=== PATIENT | female | born 1955 | race Caucasian/White ===

== ENCOUNTER 2020-07-09 15:51 | Outpatient (REF) | payer OTHER, SELFPAY | END 2020-07-09 15:52 | disposition home or self-care (01) | LOC: HO.LNP 15:51 | PROVIDERS: Visit Provider Hospitalist | DX: Z20.828 Contact with and (suspected) exposure to other viral communicable diseases (principal) | CPT/HCPCS: 87635 ==

== ENCOUNTER 2020-07-28 08:32 | Outpatient (REF) | payer OTHER, SELFPAY | END 2020-07-28 08:33 | disposition home or self-care (01) | LOC: HO.WFDLNP 08:32 | PROVIDERS: Visit Provider Hospitalist | DX: Z20.828 Contact with and (suspected) exposure to other viral communicable diseases (principal) | CPT/HCPCS: U0003 ==

== ENCOUNTER 2020-09-20 10:00 | Outpatient (REF) | payer OTHER, SELFPAY ==
[2020-09-20 13:46] LABS: Estimated Average Glucose 117 mg/dL; Hemoglobin A1c % 5.7 %
[2020-09-20 13:51] LABS: Alanine Aminotransferase 17 U/L (0-31); Albumin Level 4.3 g/dL (3.5-5.0); Alkaline Phosphatase 74 U/L (39-117); Anion Gap 13 (12-20); Aspartate Amino Transferase 18 U/L (5-31); Bilirubin Total 0.7 mg/dL (0.0-1.0); Blood Urea Nitrogen 30 mg/dL (9-16); Calcium 9.5 mg/dL (8.4-10.2); Carbon Dioxide 27 mmol/L (22-29); Chloride 102 mmol/L (96-108); Cholesterol 184 mg/dL; Estimated Glomerular Filt Rate > 60; Glucose Fasting 102 mg/dL (60-99); HDL Cholesterol 58 mg/dL; LDL Cholesterol Calculated 108 mg/dl; Potassium 4.7 mmol/l (3.3-5.1); Sodium 137 mmol/L (135-145); Triglycerides 94 mg/dL
[2020-09-20 14:13] LABS: TSH reflex Free T4 3.54 mIU/mL (0.32-4.0)
== END 2020-09-20 10:01 | disposition home or self-care (01) ==
LOC: HO.WFDLDS 10:00
PROVIDERS: Visit Provider Family Medicine
DX: E11.9 Type 2 diabetes mellitus without complications (principal)
CPT/HCPCS: 80053; 80061; 83036; 84443

== ENCOUNTER 2020-11-22 06:26 | Day surgery (SDC) | payer OTHER, SELFPAY ==
[2020-11-16 13:27] VITALS: BMI 29.2
--- NOTE | 2020-11-19 07:23 | HO.ANESPROP2 ---
Documented by User: Sujatha Calix 11/19/20 07:23 HPI - Anesthesia Eval Consult details Narrative: 64yo F for Upper Endoscopy and Colonoscopy PMFSH Active Problems Active Problems: All Active Problems (Updated 11/16/20 @ 13:33 by Char Nails) Encounter for screening laboratory testing for COVID-19 virus (Acute) Lumbar strain (Acute) Diabetes mellitus type 2, controlled (Acute) Essential hypertension (Acute) Screening for colon cancer (Acute) Screening for breast cancer (Acute) Screening for cervical cancer (Acute) Adult general medical exam (Acute) Past Medical History Medical History Arthritis Asthma Back pain Diabetes GERD (gastroesophageal reflux disease) Hx of migraine headaches Hx of sarcoidosis TIA (transient ischemic attack) Surgical History Surgical History H/O colonoscopy History of fusion of cervical spine History of lumbar fusion History of surgery History of total replacement of both hip joints Social History Social History Are you a primary pharmacy care coordinator to a significant other at home: No Do you presently have visiting nurse or other home services: No Smoking Status: Never smoker Use of substances other than those prescribed or required for medical reasons: No Have you been hit, kicked, punched, or otherwise hurt by someone within the past year? If so, by whom?: No Advance Directives Information Provided: No Recently lost weight without trying: No Meds Allergies Allergy/AdvReac Type Severity Reaction Status Date / Time fentanyl [FENTANYL] Allergy Intermediate HIVES Verified 11/16/20 12:53 morphine [MORPHINE] Allergy Intermediate HIVES Verified 11/22/20 06:36 nickel [NICKEL] Allergy Intermediate RASH Verified 11/22/20 06:36 NSAIDS (Non-Steroidal Allergy Intermediate HIVES Verified 11/22/20 06:36 Anti-Inflamma [NSAIDS (NON-STEROIDAL ANTI-INFLAMMA] oxycodone [OXYCODONE] Allergy Intermediate HIVES Verified 11/22/20 06:36 ranitidine [Zantac] Allergy Intermediate rash Verified 11/22/20 06:36 silver Allergy Intermediate HIVES Verified 11/22/20 06:36 [From TEGADERM AG MESH] prednisone AdvReac Intermediate RAsh Verified 11/22/20 06:36 OxyContin Allergy Intermediate RAsh Uncoded 11/16/20 13:36 red dye for scans Allergy Intermediate RAsh Uncoded 11/16/20 13:36 Tegaderm Allergy Unknown RAsh Uncoded 09/01/20 10:58 Home Medications Medication Instructions Recorded Confirmed Last Taken Type budesonide-formoterol HFA 160 2 puff PO BID 07/09/20 11/16/20 Unknown History mcg-4.5 mcg/actuation aerosol inhaler cetirizine 10 mg tablet 10 mg PO DAILY PRN 07/09/20 11/16/20 Unknown History fluticasone propionate 50 1 spray INTRANASAL DAILY 07/09/20 11/16/20 Unknown History mcg/actuation nasal spray,suspension galcanezumab-gnlm 120 mg/mL 120 mg SUBCUT Q4W 07/09/20 11/16/20 Unknown History subcutaneous pen injector ipratropium bromide 17 1 inh INHALATION BID 07/09/20 11/16/20 Unknown History mcg/actuation HFA aerosol inhaler metoclopramide HCl 10 mg tablet 10 mg PO TID PRN 07/09/20 11/16/20 Unknown History omeprazole 40 mg capsule,delayed 40 mg PO DAILY 07/09/20 11/16/20 Unknown History release sumatriptan succinate 100 mg tablet 100 mg PO DAILY PRN 07/09/20 11/16/20 Unknown History blood sugar diagnostic #10 ea 09/01/20 Unknown History flu vac [id number] 36mos up(PF) ml IM 09/01/20 Unknown History lancets 28 gauge #100 ea 09/01/20 Unknown History varicella-zoster glycoE [id number] 0.5 ml IM DIRECTED 09/01/20 Unknown History adj(PF) 50 mcg/0.5 mL IM susp, kit metformin 500 mg tablet 500 mg PO QAM 09/14/20 11/16/20 Unknown History fluoxetine 20 mg PO BID 11/16/20 11/16/20 11/22/20 05:45 History Exam Exam Date and Time: November 19, 2020 0723 Height,Weight and Vital Signs: Height 5 ft Weight 68.039 kg Assessment and Plan Assessment Anesthesia Assessment: Chart Reviewed Documented by User: Raghav Yan 11/22/20 07:40 PMFSH Past Medical History Medical History Arthritis Asthma Back pain Diabetes GERD (gastroesophageal reflux disease) Hx of migraine headaches Hx of sarcoidosis TIA (transient ischemic attack) Surgical History Surgical History H/O colonoscopy History of fusion of cervical spine History of lumbar fusion History of surgery History of total replacement of both hip joints Social History Social History Are you a primary pharmacy care coordinator to a significant other at home: No Do you presently have visiting nurse or other home services: No Smoking Status: Never smoker Use of substances other than those prescribed or required for medical reasons: No Have you been hit, kicked, punched, or otherwise hurt by someone within the past year? If so, by whom?: No Advance Directives Information Provided: No Recently lost weight without trying: No Meds Allergies Allergy/AdvReac Type Severity Reaction Status Date / Time fentanyl [FENTANYL] Allergy Intermediate HIVES Verified 11/16/20 12:53 morphine [MORPHINE] Allergy Intermediate HIVES Verified 11/22/20 06:36 nickel [NICKEL] Allergy Intermediate RASH Verified 11/22/20 06:36 NSAIDS (Non-Steroidal Allergy Intermediate HIVES Verified 11/22/20 06:36 Anti-Inflamma [NSAIDS (NON-STEROIDAL ANTI-INFLAMMA] oxycodone [OXYCODONE] Allergy Intermediate HIVES Verified 11/22/20 06:36 ranitidine [Zantac] Allergy Intermediate rash Verified 11/22/20 06:36 silver Allergy Intermediate HIVES Verified 11/22/20 06:36 [From TEGADERM AG MESH] prednisone AdvReac Intermediate RAsh Verified 11/22/20 06:36 OxyContin Allergy Intermediate RAsh Uncoded 11/16/20 13:36 red dye for scans Allergy Intermediate RAsh Uncoded 11/16/20 13:36 Tegaderm Allergy Unknown RAsh Uncoded 09/01/20 10:58 Home Medications Medication Instructions Recorded Confirmed Last Taken Type budesonide-formoterol HFA 160 2 puff PO BID 07/09/20 11/16/20 Unknown History mcg-4.5 mcg/actuation aerosol inhaler cetirizine 10 mg tablet 10 mg PO DAILY PRN 07/09/20 11/16/20 Unknown History fluticasone propionate 50 1 spray INTRANASAL DAILY 07/09/20 11/16/20 Unknown History mcg/actuation nasal spray,suspension galcanezumab-gnlm 120 mg/mL 120 mg SUBCUT Q4W 07/09/20 11/16/20 Unknown History subcutaneous pen injector ipratropium bromide 17 1 inh INHALATION BID 07/09/20 11/16/20 Unknown History mcg/actuation HFA aerosol inhaler metoclopramide HCl 10 mg tablet 10 mg PO TID PRN 07/09/20 11/16/20 Unknown History omeprazole 40 mg capsule,delayed 40 mg PO DAILY 07/09/20 11/16/20 Unknown History release sumatriptan succinate 100 mg tablet 100 mg PO DAILY PRN 07/09/20 11/16/20 Unknown History blood sugar diagnostic #10 ea 09/01/20 Unknown History flu vac [id number] 36mos up(PF) ml IM 09/01/20 Unknown History lancets 28 gauge #100 ea 09/01/20 Unknown History varicella-zoster glycoE vacc-[id number] 0.5 ml IM DIRECTED 09/01/20 Unknown History adj(PF) 50 mcg/0.5 mL IM susp, kit metformin 500 mg tablet 500 mg PO QAM 09/14/20 11/16/20 Unknown History fluoxetine 20 mg PO BID 11/16/20 11/16/20 11/22/20 05:45 History Exam Airway Mallampati Class: II TM Dist: >3cm Neck ROM: Full Loose/Missing/Broken Teeth: Yes (poor dentition) Heart: [id number] Lungs: cta b/l Assessment and Plan Assessment Anesthesia Assessment: Anesthesia Plan Discussed, PAT Visit and Chart Reviewed Final Anesthetic Review NPO: Yes ASA Class: II Final Preanesthetic Review: No Changes in Pt Med Stat, Meds/Allgs Chart Reviewed, Consent Obtained/Reviewed and Anes Risks/Benef Reviewed Patient Risk: Low Procedure Risk: Low Assessment/Block/Sedation in SS: Assess/Block/Sedation-SS Anesthetic Plan Anesthetic Plan: MAC: and Agree w/ Assess. and Plan Disposition: Standard PACU
[2020-11-22 06:52] VITALS: BP 141/82; PULSE 63; RESP 16; TEMP 36.4; O2SAT 95
[2020-11-22 06:58] LABS: Glucose, Whole Blood 106 mg/dL (60-115)
[2020-11-22] MEDS: Lactated Ringers 1,000 ML 100 ML IVCONT (07:03)
[2020-11-22 08:34] VITALS: BP 97/49; PULSE 60; RESP 16; TEMP 36.4; O2SAT 95
--- NOTE | 2020-11-22 08:38 | PM.OP ---
Brief Operative Note Date of Service: 11/22/20 Pre-op diagnosis: GERD, Screening Post-op diagnosis: other (Hiatal hernia, Gastritis, Diverticulosis) Procedure: EGD with biopsy, Colonoscopy to the cecum and TI Surgeon: Zaki Duong Anesthesia: MAC Estimated blood loss (mL): 4.0 Pathology: other (A. Proximal stomach B. EG Junction at 33cm) Condition: stable Disposition: other
[2020-11-22 08:49] VITALS: BP 98/56; PULSE 58; RESP 17; TEMP 36.4; O2SAT 98
[2020-11-22 08:55] VITALS: BP 102/59; PULSE 62; RESP 18; O2SAT 98
--- NOTE | 2020-11-22 08:55 | OP_ITS ---
SURGEON: Zaki Duong MD INDICATIONS: The patient presents for evaluation of gastroesophageal reflux, colorectal cancer screening. Full consent has been obtained from her for this, including risks of bleeding and perforation. PREOPERATIVE DIAGNOSIS: POSTOPERATIVE DIAGNOSIS: PROCEDURE PERFORMED: Esophagogastroduodenoscopy with biopsies, and colonoscopy to cecum and terminal ileum. ESTIMATED BLOOD LOSS: COMPLICATIONS: ANESTHESIA: Monitored anesthesia care. ASSISTANTS: SPECIMENS: PREOPERATIVE DIAGNOSES: Gastroesophageal reflux, colorectal cancer screening. POSTOPERATIVE DIAGNOSES: Gastroesophageal reflux, colorectal cancer screening, hiatal hernia, gastritis, diverticulosis, and internal hemorrhoids. DESCRIPTION OF PROCEDURE: The patient was placed in the left lateral decubitus position. The Olympus video gastroscope was passed in the posterior oropharynx and upper esophagus under direct vision. The scope was passed slowly into the distal esophagus. The gastroesophageal junction appeared at 33 cm. There was some slight irregularity, but no evidence of any esophagitis, nor any definitive evidence of Andino's mucosa. The scope was entered into the stomach. There was a small to moderate-sized hiatal hernia. The scope was advanced to pylorus and the duodenum was cannulated to the descending portion. The duodenum including the bulb appeared normal without mass or ulceration. The scope was withdrawn back into the stomach. The gastric antrum appeared normal with good peristalsis. Scope was retroflexed visualizing the proximal stomach carefully, which appeared consistent with changes of some gastritis with some erythema and edema. There were no ulcerations nor masses. The scope was straightened. Biopsies were obtained from the proximal stomach. The scope was withdrawn back in the esophagus. Biopsies were obtained at the EG junction at 33 cm. The scope was then withdrawn through the remainder of the esophagus, which appeared normal. The scope was withdrawn from the patient. She tolerated the procedure well and was turned around for colonoscopy. The digital rectal exam revealed no abnormalities. The Olympus video pediatric colonoscope was entered into the rectum and advanced to the cecum with the assistance of abdominal wall pressure. Once in the cecum, I did identify normal-appearing cecal pouch with appendiceal orifice and a normal-appearing ileocecal valve. The terminal ileum was cannulated and appeared normal. The scope was withdrawn back in the colon. The entire cecum and ileocecal valve appeared normal. The scope was slowly withdrawn assessing all mucosal surfaces carefully. Preparation was excellent. I did not visualize any sign of polyps, colitis, nor angiodysplasia. There was a mild amount of sigmoid diverticulosis. In the rectum, scope was retroflexed visualizing internal hemorrhoids, but no other pathology. The rectal mucosa appeared normal. Scope was straightened out and withdrawn from the patient. She tolerated both procedures well and was returned to recovery area in stable condition. IMPRESSION: 1. Hiatal hernia, gastroesophageal reflux. 2. Proximal gastritis. 3. Diverticulosis. 4. Internal hemorrhoids. PLAN: The results of the biopsies will be checked. She will continue her omeprazole for symptomatic relief of her reflux. She was advised not to use any aspirin and NSAIDs for 1 week. I would recommend a repeat colonoscopy in 5 years for further screening given her family history. She will otherwise see me on a p.r.n. basis. MD MITALI Madrigal/TYLER / [phone]
== END 2020-11-22 09:22 | disposition home or self-care (01) ==
PROVIDERS: Visit Provider Internal Medicine
PROC: (CPT 43239; principal; 2020-11-22 07:30)
DX: Z12.11 Encounter for screening for malignant neoplasm of colon (principal); Z80.0 Family history of malignant neoplasm of digestive organs; K57.30 Diverticulosis of large intestine without perforation or abscess without bleeding; K64.8 Other hemorrhoids; K21.9 Gastro-esophageal reflux disease without esophagitis; K29.50 Unspecified chronic gastritis without bleeding; K44.9 Diaphragmatic hernia without obstruction or gangrene; J45.909 Unspecified asthma, uncomplicated; E11.9 Type 2 diabetes mellitus without complications; Z79.84 Long term (current) use of oral hypoglycemic drugs; Z79.51 Long term (current) use of inhaled steroids; Z86.73 Personal history of transient ischemic attack (TIA), and cerebral infarction without residual deficits; Z88.8 Allergy status to other drugs, medicaments and biological substances; Z91.041 Radiographic dye allergy status; Z79.899 Other long term (current) drug therapy
CPT/HCPCS: 43239; G0105; 82947; 88305; 88342; J2250

== ENCOUNTER 2021-02-03 09:49 | Outpatient (REF) | payer OTHER, SELFPAY ==
--- NOTE | ~2021-02-03 | XR_ITS ---
EXAMINATION: CR CHEST CLINICAL INFORMATION: Sarcoidosis of lung. COMPARISON: Several prior chest x-rays, most recent of which is dated 12/16/2019. TECHNIQUE: 2 views of the chest were obtained. FINDINGS: The cardiomediastinal silhouette is within normal limits in size. No significant) tracheal or bilateral hilar soft tissue fullness is noted. Lungs bilaterally are symmetrically hypoinflated with crowding of the bronchovascular lung markings seen. There is some superimposed linear opacity in the left lower lobe, possibly due to atelectasis. No focal dense consolidation, effusion or pneumothorax is seen. No significant pulmonary nodules are appreciated on plain film. Lower spinal fusion hardware and mid thoracic spinal stimulator leads again noted, unchanged. Mild mid and lower thoracic spine spondylosis. Bony structures are otherwise unremarkable. XR/XR chest 2V IMPRESSION: Hypoinflated lungs with suspicion of linear atelectasis in the left lung base. No dense consolidation seen.
[2021-02-03 10:23] LABS: MANUAL DIFF FLAG NO
[2021-02-03 10:31] LABS: Basophils Absolute Auto 0.1 X10*3/uL (0.0-0.2); Basophils Percent Auto 0.9 % (0-2); Eosinophils Absolute Auto 0.3 X10*3/uL (0.0-0.4); Eosinophils Percent Auto 4.9 % (0-4); Hematocrit 40.4 % (37-47); Hemoglobin 12.9 g/dl (12.0-16.0); Imm Gran Abs Auto 0.01 X10*3/uL (0.00-0.03); Imm Gran Pct Auto 0.2 % (0.0-0.4); Lymphocytes Absolute Auto 1.2 X10*3/uL (1.2-4.9); Lymphocytes Percent Auto 22.4 % (20-40); Mean Corpuscular HGB Conc 31.9 g/dl (31.0-35.0); Mean Corpuscular Hemoglobin 28.2 pg (27.0-33.0); Mean Corpuscular Volume 88.2 fL (80-98); Mean Platelet Volume 10.1 fL (9.4-12.3); Monocytes Absolute Auto 0.8 X10*3/uL (0.1-1.2); Monocytes Percent Auto 14.6 % (2-11); Neutrophils Absolute Auto 3.1 X10*3/uL (2.0-8.3); Platelet Count 254 X10*3/uL (160-400); Red Blood Count 4.58 X10*6/uL (4.20-5.50); White Blood Count 5.4 X10*3/uL (4.8-10.8)
[2021-02-03 10:58] LABS: Glucose Urine UA NEG (NEG); Leukocyte Esterase Urine NEG (NEG); Nitrite Urine NEG (NEG); Specific Gravity - Urine 1.025 (1.005-1.025); Urine Blood NEG (NEG); Urine Ketones NEG (NEG); Urine Protein NEG (NEG-TRACE)
[2021-02-03 10:59] LABS: Appearance Urine HAZY; Color Urine YELLOW
[2021-02-03 11:05] LABS: Alanine Aminotransferase 21 U/L (0-31); Albumin Level 4.1 g/dL (3.5-5.0); Alkaline Phosphatase 73 U/L (39-117); Anion Gap 12 (12-20); Aspartate Amino Transferase 18 U/L (5-31); Bilirubin Total 0.7 mg/dL (0.0-1.0); Blood Urea Nitrogen 19 mg/dL (9-16); Calcium 9.7 mg/dL (8.4-10.2); Carbon Dioxide 29 mmol/L (22-29); Chloride 103 mmol/L (96-108); Estimated Glomerular Filt Rate > 60; Glucose Random 103 mg/dL (60-115); Potassium 4.6 mmol/L (3.3-5.1); Sodium 139 mmol/L (135-145); Total Protein 7.6 g/dL (6.5-8.0)
[2021-02-03 11:25] LABS: Vitamin D 25-OH Total 44.2 ng/mL (>30)
[2021-02-08 13:12] LABS: VITAMIN D (1,25 OH) D3 27 pg/mL; Vit D (1,25-Dihydroxy) Total 48 pg/mL (18-72); Vitamin D (1,25 OH) D2 21 pg/mL
== END 2021-02-03 09:50 | disposition home or self-care (01) ==
LOC: HO.LAB 09:49
PROVIDERS: PCP Family Medicine; Visit Provider Family Medicine
DX: Z00.00 Encounter for general adult medical examination without abnormal findings (principal); D86.0 Sarcoidosis of lung; E55.9 Vitamin D deficiency, unspecified
CPT/HCPCS: 36415; 71046; 80053; 81003; 82306; 82652; 85025

== ENCOUNTER 2021-02-17 11:00 | Outpatient (RCR) | payer OTHER, SELFPAY ==
--- NOTE | 2021-02-02 15:50 | MHC.PT.EP ---
[facility] [place] [facility] [place] [facility] [place] [facility] [address] Obdulia Pak [address] [phone] F: [phone] F: [phone] F: [phone] F: [phone] Physical Therapy Plan of Care Date of Evaluation: Date of Surgery: Diagnosis: CERVICALGIA,HEADACHE Assessment: Pt IS 65 YO F REFERRED TO PT FROM DR DIAZ WITH CERVICALGIA. PRESENTS WITH DECREASED CERV ROM AND DECREASED UPPER BODY STRENGTH WITH DECREASED POSTURE. HX OF NECK SURGERY. TIGHT UTS NOTED. SHOULD BENEFIT FROM PT TO ADDRESS THESE ISSUES Frequency and Duration: The patient will be seen 2X/WK X 4 WKS Short Term Goals: 1. IMPROVED POSTURE AWARENESS AND AWARENESS NECK CARE 2. IMPROVED SLEEP Shelter Goals: 1. INCREASED CERV ROM 25% FOR ROT AND LAT FLEX 2. I HEP WITH DC EX PLAN 3. DECREASED NECK PAIN AT LEAST 50% WITH ADLS Treatment Plan: Modalities to reduce pain, spasms and effusion. Manual therapy to restore motion and function. Therapeutic exercise to improve strength and flexibility. Neuromuscular re-education for posture and balance. Therapeutic activities to return to functional activities of daily living. Electronically signed by: SRINIVAS WILLIAMSON Please sign and return to therapist. Thank you for your referral.
== END 2021-08-05 12:36 | disposition home or self-care (01) ==
LOC: HO.PTWFD 11:00
PROVIDERS: PCP Family Medicine; Visit Provider Family Medicine
DX: M54.2 Cervicalgia (principal)
CPT/HCPCS: 97110; 97140; 97161; 97535

== ENCOUNTER 2021-05-24 10:45 | Outpatient (REF) | payer OTHER, SELFPAY ==
[2021-05-24 11:44] LABS: MANUAL DIFF FLAG NO
[2021-05-24 11:46] LABS: Basophils Percent Auto 0.5 % (0-2); Eosinophils Absolute Auto 0.1 X10*3/uL (0.0-0.4); Eosinophils Percent Auto 2.5 % (0-4); Hematocrit 42.1 % (37-47); Hemoglobin 13.6 g/dl (12.0-16.0); Imm Gran Abs Auto 0.02 X10*3/uL (0.00-0.03); Imm Gran Pct Auto 0.4 % (0.0-0.4); Lymphocytes Absolute Auto 1.2 X10*3/uL (1.2-4.9); Lymphocytes Percent Auto 20.6 % (20-40); Mean Corpuscular HGB Conc 32.3 g/dl (31.0-35.0); Mean Corpuscular Hemoglobin 28.5 pg (27.0-33.0); Mean Corpuscular Volume 88.1 fL (80-98); Monocytes Absolute Auto 0.6 X10*3/uL (0.1-1.2); Monocytes Percent Auto 10.8 % (2-11); Neutrophils Absolute Auto 3.6 X10*3/uL (2.0-8.3); Neutrophils Percent Auto 65.2 % (45-73); Platelet Count 259 X10*3/uL (160-400); Red Blood Count 4.78 X10*6/uL (4.20-5.50); Red Cell Distribution Width 14.3 % (11.0-16.0); White Blood Count 5.6 X10*3/uL (4.8-10.8)
[2021-05-24 12:16] LABS: Alanine Aminotransferase 17 U/L (0-31); Albumin Level 4.3 g/dL (3.5-5.0); Alkaline Phosphatase 67 U/L (39-117); Anion Gap 12 (12-20); Aspartate Amino Transferase 19 U/L (5-31); Blood Urea Nitrogen 21 mg/dL (9-16); Calcium 9.7 mg/dL (8.4-10.2); Carbon Dioxide 26 mmol/L (22-29); Chloride 104 mmol/L (96-108); Estimated Glomerular Filt Rate > 60; Glucose Fasting 135 mg/dL (60-99); Potassium 4.1 mmol/L (3.3-5.1); Sodium 138 mmol/L (135-145)
[2021-05-24 12:33] LABS: Erythrocyte Sedimentation Rate 10 MM/HR (0-20)
[2021-05-26 12:01] LABS: CRP High Sensitivity 1.3 mg/L
[2021-05-29 22:52] LABS: Angiotensin Converting Enzyme 52 U/L (9-67)
[2021-06-01 00:21] LABS: Lysozyme, Serum 8.7 mcg/mL (5.0-11.0)
== END 2021-05-24 10:46 | disposition home or self-care (01) ==
LOC: HO.WFDLDS 10:45
PROVIDERS: Visit Provider Family Medicine
DX: Z00.00 Encounter for general adult medical examination without abnormal findings (principal); R59.0 Localized enlarged lymph nodes; D86.0 Sarcoidosis of lung
CPT/HCPCS: 36415; 80053; 82164; 85025; 85549; 85652; 86141

== ENCOUNTER 2021-08-15 14:28 | Emergency (ER) | payer OTHER, SELFPAY ==
--- NOTE | 2021-08-15 | ECG_ITS ---
Test Reason : CHEST PAIN Blood Pressure : / mmHG Vent. Rate : 065 BPM Atrial Rate : 065 BPM P-R Int : 170 ms QRS Dur : 076 ms QT Int : 398 ms P-R-T Axes : 038 -31 -19 degrees QTc Int : 413 ms Normal sinus rhythm Left axis deviation Low voltage QRS Nonspecific T wave abnormality Inferior leads Cannot rule out Anterior infarct (cited on or before 24-SEP-2018) Abnormal ECG When compared with ECG of 24-SEP-2018 15:29, Nonspecific T wave abnormality no longer evident in Lateral leads Heart rate has decreased Referred By: Generic ED Physician Electronically Signed By:BERNICE CARVER MD
== END 2021-08-15 17:09 | disposition left against medical advice (07) ==
PROVIDERS: Emergency Provider Emergency Medicine; PCP Family Medicine
DX: R20.0 Anesthesia of skin (principal)
CPT/HCPCS: 93005; 99281; 99283

== ENCOUNTER 2021-09-02 09:55 | Outpatient (REF) | payer OTHER, SELFPAY ==
[2021-09-02 14:06] LABS: MANUAL DIFF FLAG NO
[2021-09-02 14:14] LABS: Basophils Percent Auto 0.7 % (0-2); Eosinophils Absolute Auto 0.2 X10*3/uL (0.0-0.4); Eosinophils Percent Auto 3.5 % (0-4); Hematocrit 41.3 % (37.0-47.0); Hemoglobin 13.4 g/dl (12.0-16.0); Imm Gran Abs Auto 0.02 X10*3/uL (0.00-0.03); Imm Gran Pct Auto 0.3 % (0.0-0.4); Lymphocytes Absolute Auto 1.4 X10*3/uL (1.2-4.9); Mean Corpuscular HGB Conc 32.4 g/dl (31.0-35.0); Mean Corpuscular Hemoglobin 28.9 pg (27.0-33.0); Mean Platelet Volume 11.7 fL (9.4-12.3); Monocytes Absolute Auto 0.9 X10*3/uL (0.1-1.2); Monocytes Percent Auto 14.8 % (2-11); Neutrophils Absolute Auto 3.3 x10*3/uL (2.0-8.3); Neutrophils Percent Auto 56.7 % (45-73); Platelet Count 260 X10*3/uL (160-400); Red Blood Count 4.64 X10*6/uL (4.20-5.50); Red Cell Distribution Width 13.2 % (11.0-16.0); White Blood Count 5.7 X10*3/uL (4.8-10.8)
[2021-09-02 14:28] LABS: Estimated Average Glucose 117 mg/dL; Hemoglobin A1c % 5.7 %
[2021-09-02 14:38] LABS: Alanine Aminotransferase 19 U/L (0-31); Albumin Level 4.3 g/dL (3.5-5.0); Alkaline Phosphatase 69 U/L (39-117); Anion Gap 14 (12-20); Aspartate Amino Transferase 20 U/L (5-31); Bilirubin Total 0.5 mg/dL (0.0-1.0); Blood Urea Nitrogen 26 mg/dL (9-16); Calcium 9.8 mg/dL (8.4-10.2); Carbon Dioxide 25 mmol/L (22-29); Chloride 104 mmol/L (96-108); Estimated Glomerular Filt Rate > 60; Glucose Random 107 mg/dL (60-115); Potassium 4.4 mmol/L (3.3-5.1); Sodium 139 mmol/L (135-145); Total Protein 7.9 g/dL (6.5-8.0)
[2021-09-02 15:00] LABS: Erythrocyte Sedimentation Rate 11 MM/HR (0-20); TSH reflex Free T4 1.89 uIU/mL (0.32-4.0)
[2021-09-03 13:32] LABS: CRP High Sensitivity 2.3 mg/L
[2021-09-07 07:02] LABS: Angiotensin Converting Enzyme 48 U/L (9-67)
== END 2021-09-02 09:56 | disposition home or self-care (01) ==
LOC: HO.WFDLDS 09:55
PROVIDERS: Visit Provider Family Medicine
DX: Z00.00 Encounter for general adult medical examination without abnormal findings (principal); D86.0 Sarcoidosis of lung; R73.01 Impaired fasting glucose
CPT/HCPCS: 36415; 80053; 82164; 83036; 84443; 85025; 85652; 86141

== ENCOUNTER 2021-10-05 10:57 | Outpatient (REF) | payer OTHER, SELFPAY ==
--- NOTE | ~2021-10-05 | XR_ITS ---
EXAMINATION: XR FOOT, RIGHT CLINICAL INFORMATION: Pain. COMPARISON: 04/06/2016 TECHNIQUE: AP, lateral, and oblique views of the right foot. FINDINGS: There is no evidence of acute fracture or dislocation of the right foot. No radiopaque foreign body is identified. There is degenerative change seen involving the navicular cuneiform joints and 1st and 2nd tarsometatarsal joints. There is some degenerative spurring noted about the superior aspect of the calcaneocuboid joint. XR/XR foot RT min 3V IMPRESSION: 1. No acute fracture or dislocation of the right foot. 2. Degenerative change as described.
== END 2021-10-05 10:58 | disposition home or self-care (01) ==
LOC: HO.XRAY 10:57
PROVIDERS: PCP Family Medicine; Visit Provider Family Medicine
DX: M79.673 Pain in unspecified foot (principal)
CPT/HCPCS: 73630

== ENCOUNTER 2021-12-21 10:18 | Outpatient (REF) | payer OTHER, SELFPAY ==
--- NOTE | ~2021-12-21 | XR_ITS ---
EXAMINATION: XR CERVICAL SPINE CLINICAL INFORMATION: Pain COMPARISON: None TECHNIQUE: 3 views of the cervical spine were obtained. FINDINGS: There is C4, C5, C6 and C7 bony fusion with a graft integration stabilized with anterior metallic plate and screws from C4 through C7 vertebra. There is a posterior hardware with bilateral lamina screws from C4 through C7 vertebra with interconnecting cristina. Moderate facet joint changes are seen at the C3-C4, slightly greater on the right. No lytic or sclerotic process seen. Mild degenerative disc changes at the C7-T1 disc level with ventral spondylosis noted. No visible acute fracture or dislocation seen. The prevertebral soft tissues are normal. XR/XR cervical spine 3V IMPRESSION: Anterior and posterior cervical fusion from C4 through C7 vertebra. Mild degenerative changes C7-T1 disc level with ventral spondylosis. Moderate right and mild left C3-C4 facet joint arthropathy.
== END 2021-12-21 10:19 | disposition home or self-care (01) ==
LOC: HO.XRAY 10:18
PROVIDERS: PCP Family Medicine; Visit Provider Family Medicine
DX: M54.2 Cervicalgia (principal)
CPT/HCPCS: 72040

== ENCOUNTER 2022-03-01 09:33 | Outpatient (REF) | payer OTHER, SELFPAY ==
[2022-03-01 11:41] LABS: MANUAL DIFF FLAG NO
[2022-03-01 11:47] LABS: Appearance Urine HAZY; Color Urine YELLOW; Glucose Urine UA NEG (NEG); Leukocyte Esterase Urine NEG (NEG); Nitrite Urine NEG (NEG); PH 5.5 (5.0-8.0); Specific Gravity - Urine 1.025 (1.005-1.025); Urine Blood NEG (NEG); Urine Ketones NEG (NEG); Urine Protein NEG (NEG-TRACE)
[2022-03-01 11:54] LABS: Basophils Percent Auto 0.5 % (0-2); Eosinophils Absolute Auto 0.1 X10*3/uL (0.0-0.4); Eosinophils Percent Auto 2.4 % (0-4); Hematocrit 40.9 % (37.0-47.0); Imm Gran Abs Auto 0.03 X10*3/uL (0.00-0.03); Imm Gran Pct Auto 0.5 % (0.0-0.4); Lymphocytes Absolute Auto 1.1 X10*3/uL (1.2-4.9); Lymphocytes Percent Auto 20.8 % (20-40); Mean Corpuscular HGB Conc 31.8 g/dl (31.0-35.0); Mean Corpuscular Hemoglobin 28.4 pg (27.0-33.0); Mean Corpuscular Volume 89.5 fL (80.0-98.0); Mean Platelet Volume 10.7 fL (9.4-12.3); Monocytes Absolute Auto 0.7 X10*3/uL (0.1-1.2); Neutrophils Absolute Auto 3.5 x10*3/uL (2.0-8.3); Neutrophils Percent Auto 63.8 % (45-73); Platelet Count 267 X10*3/uL (160-400); Red Blood Count 4.57 X10*6/uL (4.20-5.50); White Blood Count 5.5 X10*3/uL (4.8-10.8)
[2022-03-01 12:05] LABS: Alanine Aminotransferase 15 U/L (0-31); Albumin Level 4.1 g/dL (3.5-5.0); Alkaline Phosphatase 60 U/L (39-117); Anion Gap 12 (12-20); Aspartate Amino Transferase 14 U/L (5-31); Bilirubin Total 0.5 mg/dL (0.0-1.0); Blood Urea Nitrogen 24 mg/dL (9-16); Calcium 9.4 mg/dL (8.4-10.2); Carbon Dioxide 25 mmol/L (22-29); Chloride 105 mmol/L (96-108); Cholesterol 166 mg/dL; Estimated Glomerular Filt Rate > 60; Glucose Fasting 128 mg/dL (60-99); HDL Cholesterol 64 mg/dL; LDL Cholesterol Calculated 93 mg/dl; Potassium 4.4 mmol/L (3.3-5.1); Sodium 138 mmol/L (135-145); Total Protein 7.5 g/dL (6.5-8.0); Triglycerides 48 mg/dL
== END 2022-03-01 09:34 | disposition home or self-care (01) ==
LOC: HO.WFDLDS 09:33
PROVIDERS: Visit Provider Family Medicine
DX: Z00.00 Encounter for general adult medical examination without abnormal findings (principal); I10 Essential (primary) hypertension
CPT/HCPCS: 36415; 80053; 80061; 81003; 82043; 84443; 85025

== ENCOUNTER → 2022-05-09 13:35 | Outpatient (BNVA) | payer OTHER, SELFPAY | PROVIDERS: PCP Family Medicine; Referring Provider Family Medicine; Visit Provider Internal Medicine | DX: R94.31 Abnormal electrocardiogram [ECG] [EKG] (principal); D86.0 Sarcoidosis of lung | CPT/HCPCS: 99202 ==

== ENCOUNTER 2022-06-14 14:07 | Outpatient (REF) | payer OTHER, SELFPAY ==
--- NOTE | ~2022-06-14 | US_ITS ---
EXAMINATION: US SOFT TISSUE OF THE NECK CLINICAL INFORMATION: Nodule anterior neck-right of midline. COMPARISON: Thyroid ultrasound 01/22/2019. CT soft tissue neck with contrast 06/29/2015. TECHNIQUE: Linear transducer grayscale and color Doppler examination of the right neck-level 1B, area indicated by patient. Comparison imaging of the left neck was performed. FINDINGS: There is a 1.8 x 1.7 x 0.7 cm right level 1B lymph node corresponding to palpable abnormality. This is heterogeneous appearing with hypoechoic cystic area. This demonstrates mixed cortical and hilar flow. There is a second right level 1B cervical lymph node measuring 1.7 x 0.6 x 1 cm. This also demonstrates abnormal ultrasound morphology with absent fatty hilum. There is a third right level 1B lymph node measuring 1.9 x 0.6 x 0.7 cm. This is heterogeneous appearing with a hypoechoic or cystic component and has a slitlike hilum. There is a left level 1B lymph node that measures 1 x 0.6 x 0.7 cm. This is normal in size and demonstrates normal morphology and flow. There is a left level 2 lymph node. This is normal in size measuring 1 x 0.5 x 1 cm. This demonstrates normal morphology, flow and not assessed. In comparison with previous soft tissue neck ultrasound January 2019 lymph nodes appear increased. US/US soft tiss head and/or neck IMPRESSION: Palpable abnormality corresponds to right level 1B lymph nodes. These are slightly enlarged and demonstrate abnormal ultrasound morphology. Tissue sampling should be considered.
== END 2022-06-14 14:08 | disposition home or self-care (01) ==
LOC: HO.US 14:07
PROVIDERS: PCP Family Medicine; Visit Provider Family Medicine
DX: R22.1 Localized swelling, mass and lump, neck (principal)
CPT/HCPCS: 76536

== ENCOUNTER → 2022-06-19 08:27 | Outpatient (REF) | payer OTHER, SELFPAY ==
--- NOTE | ~2022-06-19 | NM_ITS ---
Exercise Myocardial perfusion study Indication: Abnormal EKG to evaluate for myocardial ischemia Technique: The patient was brought in for an exercise perfusion study on 06/19/2022. Patient performed exercise as per Percy protocol and was injected 25 mCi of sestamibi was given intravenously one target HR was achieved. Images were obtained using the SPECT gamma camera interlaced with the gating device. Images were obtained in supine position. Resting perfusion study was performed on 06/20/2022. Patient was administered 25 mCi of sestamibi intravenously at rest. Images were then obtained in supine position. Images obtained with and without CT attenuation. Total DLP 129 mGy-cm. Images were processed with the software and compared side to side in short axis, horizontal long axis and vertical long axis views. Findings: Both stress as well as rest perfusion images are suboptimal due to intense subdiaphragmatic uptake interfering with inferior wall uptake. This bowel loop uptake could not be changed despite multiple interventions. The stress perfusion study showed non attenuated images show minimal thinning of the distal anterior as well as the distal lateral and basal lateral wall of the LV myocardium. Remainder of the LV myocardium. Normally perfused on the inferior wall is obscured. Attenuated corrected images show minimal thinning of the distal anterior and apex of the LV myocardium.. The gated study shows normal LV systolic function with calculated LVEF of 70%. LV cavity is normal in size. The gated study shows normal systolic wall thickening and contraction of all segments. There is no transient ischemic dilation. Resting study shows show no significant changes compared to stress perfusion images. Gating at rest reveals normal systolic wall motion with ejection fraction at 67%. The findings are consistent with likely normal myocardial perfusion. NM/NM cardiolite stress test Impression: 1. Normal myocardial perfusion 2. Gated LVEF is 70% 3. Transient ischemic dilatation not present Stress EKG is negative for ischemia
--- NOTE | 2022-06-19 08:29 | CA_ITS ---
Acquisition Time: 2022-06-19 09:12:21 Total Exercise Time: 00:06:00 Test Indications: ABN EKG Medications: SEE CHART Protocol: CHANTE Max HR: 137 BPM 87% of Pred: 156 BPM Max BP: 152/080 mmHG Max Work Load: 7.0 METS Exercise stress test with exercise 6 min of Chante protocol, achieinv 85% MPHR, with moderate sob, no chest discomfort, with isolated PACs, PVCs, during exercise and few ventricular cuplets seen in recovery, with normotensive response to exercise, without EKG chnages meeting criteria for ischemia during exercise, early recovery, in later recovery there is asymptomatic T wave inversions inferiorly, V3-V5 of unclear signficance. - Baseline EKG has T wave inversion lead III. In recovery her sob quickly resolved. Nuclear images pending. Test reviewed with Dr Garvin Referred By: Figueroa Delgadillo Overread By: BARBIE DEVRIES
--- NOTE | 2022-06-19 08:29 | CA_ITS ---
Transthoracic Echocardiogram Patient (Last, First, Middle): Nadine Hamilton M Gender: Female Date of : 1955 Age: 66 Procedure Date: 06/19/2022 Procedure Type: Transthoracic Echocardiogram Location: OP Height: 152.4 cm Weight: 72.58 kg BSA: 1.70 m2 Heart Rate: bpm BP: 116 / 82 mmHg Dramatic Director: BARRETT Referring MD: Figueroa Delgadillo MD Symptoms: R94.31 - Abnormal electrocardiogram [ECG] [EKG] Study Quality: Adequate ECG Rhythm: Sinus Conclusions: - The left ventricular systolic function is normal. The visually estimated ejection fraction is between 55-60%. - No obvious valvular pathology seen on this study. Findings Left Ventricle Normal left ventricular cavity size. There is normal left ventricular wall thickness. The left ventricular systolic function is normal. The visually estimated ejection fraction is between 55-60%. There is no evidence of regional wall motion abnormalities. Diastolic function is normal for age. Right Ventricle Normal right ventricular cavity size and systolic function. Atria Both atria are normal in size. Aortic Valve There is a normal trileaflet aortic valve. There is no aortic valve stenosis. There is no aortic valve regurgitation. Mitral Valve The mitral valve appears normal. There is trace mitral valve regurgitation. There is no mitral valve stenosis. Pulmonic Valve The pulmonic valve is likely normal. Tricuspid Valve There is trace tricuspid valve regurgitation. There is no evidence of pulmonary hypertension. Great Vessels The aortic annulus, sinuses of valsalva, and asc aorta are normal in size. Venous The inferior vena cava is normal in size and collapses greater than 50% with inspiration. Pericardium/Pleural There is no evidence of pericardial effusion. Prior Study Comparison No significant change compared to prior study dated: 10/07/2018. Recommendations, Care & Conclusions No obvious valvular pathology seen on this study. Measurements 2D Linear Measurements IVSd: 1.01 0.6-0.9/0.6-1.0 cm LVIDd: 4.30 3.9-5.3/4.2-5.9 cm LVIDd Index: 2.53 2.4-3.2/2.2-3.1 cm/m2 LVIDs: 2.81 2.0-3.6 cm LVPWd: 0.64 0.7-1.1 cm LA Diam: 3.20 2.7-3.8/3.0-4.0 cm LAIDs Index: 1.88 1.5-2.3 cm/m2 LV Mass: 136.83 67-162/88-224 g LV Mass Index: 80.49 43-95/49-115 g/m2 LVOT Diam: 2.00 3.0+(-)1.3 cm 2D Systolic Function EF 4C: 59.30 >55% EF 2C: 61.20 >55% EF BiP: 60.40 >55% Mitral Valve MV Pk E: 0.96 MV PK A: 0.97 MV Decel Time: 262.00 E/A: 1.00 E'Lateral: 8.38 E'Medial: 6.20 E/E' Med: 15.40 E/E' Lat: 11.40 PHT: 77.00 MVA PHT: 2.86 Decel [place]: 3.66 Aortic Valve AoV Pk Jeff: 1.42 AoV Mn Jeff: 1.00 AoV VTI: 0.37 AoV Pk Grad: 8.00 Aov Mn Grad: 4.00 BIPIN Cont.VTI: 2.38 LVOT LVOT Pk Jeff: 1.13 LVOT Mn Jeff: 0.65 LVOT VTI: 0.28 LVOT Pk Grad: 5.00 LVOT Mn Grad: 2.00 LVOT Diam: 2.00 LVOT Area: 3.14 Diastolic Function MV Pk E: 0.96 MV Pk A: 0.97 E/A: 1.00 E'Medial: 6.20 E/E' Med: 15.40 E' Laterial: 8.38 E/E' Lat: 11.40 Right Ventricle TAPSE (mm): 21.50 TVS' Jeff: 9.68 Tricuspid Valve TR Pk Jeff: 0.98 TR Pk Grad: 4.00 RA Press: 3.00 RVSP: 7.00 Great Vessels Aorta Sinus of Valsalva: 2.99 2.0-3.[address] [place]: 2.52 1.7-3.4 cm Ao Asc: 3.60 2.1-3.4 cm Updated in Other Vendor System with Status of Final Figueroa Delgadillo MD electronically signed on 06/19/2022 4:18:56 PM with status of Final
== END ==
LOC: HO.CARD 08:27
PROVIDERS: PCP Family Medicine; Visit Provider Internal Medicine
DX: R94.31 Abnormal electrocardiogram [ECG] [EKG] (principal); D86.0 Sarcoidosis of lung
CPT/HCPCS: 78452; 93017; 93306; A9500

== ENCOUNTER → 2022-06-22 08:04 | Outpatient (BNVA) | payer OTHER, SELFPAY | PROVIDERS: PCP Family Medicine; Referring Provider Family Medicine; Visit Provider Internal Medicine | DX: R94.31 Abnormal electrocardiogram [ECG] [EKG] (principal); D86.0 Sarcoidosis of lung | CPT/HCPCS: 99212 ==

== ENCOUNTER 2022-09-04 09:25 | Outpatient (REF) | payer OTHER, SELFPAY ==
--- NOTE | ~2022-09-04 | XR_ITS ---
EXAMINATION: XR ABDOMEN KUB CLINICAL INDICATION: Abdominal distention COMPARISON: None TECHNIQUE: AP view of the abdomen. FINDINGS: Nonobstructive bowel gas pattern. Spinal stimulator device is noted. Bilateral hip arthroplasties. XR/XR KUB IMPRESSION: Nonobstructive bowel gas pattern.
== END 2022-09-04 09:26 | disposition home or self-care (01) ==
LOC: HO.XRAY 09:25
PROVIDERS: PCP Family Medicine; Visit Provider Family Medicine
DX: R14.0 Abdominal distension (gaseous) (principal); R10.9 Unspecified abdominal pain
CPT/HCPCS: 74018

== ENCOUNTER 2022-09-15 11:54 | Outpatient (REF) | payer OTHER, SELFPAY | END 2022-09-15 11:55 | disposition home or self-care (01) | LOC: HO.US 11:54 | PROVIDERS: Visit Provider Family Medicine | DX: R22.1 Localized swelling, mass and lump, neck (principal) | CPT/HCPCS: 76536 ==

== ENCOUNTER 2022-11-01 09:58 | Outpatient (REF) | payer OTHER, SELFPAY ==
[2022-11-01 10:57] LABS: MANUAL DIFF FLAG NO
[2022-11-01 11:07] LABS: Appearance Urine Clear; Color Urine Yellow; Glucose Urine UA Negative (Negative); Leukocyte Esterase Urine Negative (Negative); Nitrite Urine Negative (Negative); PH 5.5 (5.0-9.0); Specific Gravity - Urine <= 1.005 (1.005-1.025); Urine Blood Negative (Negative); Urine Ketones Trace mg/dL (Negative); Urine Protein Trace mg/dL (Neg-Trace)
[2022-11-01 11:09] LABS: Basophils Absolute Auto 0.1 X10*3/uL (0.0-0.2); Eosinophils Absolute Auto 0.2 X10*3/uL (0.0-0.4); Hematocrit 40.1 % (37.0-47.0); Hemoglobin 13.1 g/dl (12.0-16.0); Imm Gran Abs Auto 0.02 X10*3/uL (0.00-0.03); Imm Gran Pct Auto 0.4 % (0.0-0.4); Lymphocytes Absolute Auto 1.2 X10*3/uL (1.2-4.9); Lymphocytes Percent Auto 22.2 % (20-40); Mean Corpuscular HGB Conc 32.7 g/dl (31.0-35.0); Mean Corpuscular Hemoglobin 29.2 pg (27.0-33.0); Mean Corpuscular Volume 89.5 fL (80.0-98.0); Monocytes Absolute Auto 0.8 X10*3/uL (0.1-1.2); Monocytes Percent Auto 14.5 % (2-11); Neutrophils Percent Auto 57.9 % (45-73); Platelet Count 273 X10*3/uL (160-400); Red Blood Count 4.48 X10*6/uL (4.20-5.50); Red Cell Distribution Width 13.6 % (11.0-16.0); White Blood Count 5.2 X10*3/uL (4.8-10.8)
[2022-11-01 12:21] LABS: Alanine Aminotransferase 16 U/L (0-31); Albumin Level 4.1 g/dL (3.5-5.0); Alkaline Phosphatase 59 U/L (39-117); Anion Gap 15 (12-20); Aspartate Amino Transferase 17 U/L (5-31); Blood Urea Nitrogen 23 mg/dL (9-16); Calcium 9.6 mg/dL (8.4-10.2); Carbon Dioxide 25 mmol/L (22-29); Chloride 103 mmol/L (96-108); Estimated Glomerular Filt Rate > 60; Glucose Random 113 mg/dL (60-115); Sodium 139 mmol/L (135-145); Total Protein 7.1 g/dL (6.5-8.0)
[2022-11-01 15:56] LABS: TSH reflex Free T4 1.54 uIU/mL (0.32-4.0)
== END 2022-11-01 09:59 | disposition home or self-care (01) ==
LOC: HO.WFDLDS 09:58
PROVIDERS: Visit Provider Family Medicine
DX: Z00.00 Encounter for general adult medical examination without abnormal findings (principal); R59.1 Generalized enlarged lymph nodes
CPT/HCPCS: 36415; 80053; 81003; 84443; 85025

== ENCOUNTER 2022-12-20 09:22 | Outpatient (REF) | payer OTHER, SELFPAY ==
--- NOTE | ~2022-12-20 | CT_ITS ---
CT SOFT TISSUE NECK WITH CONTRAST CLINICAL INFORMATION: Enlarged lymph nodes. COMPARISON: Neck ultrasound 09/15/2022. TECHNIQUE: Following the intravenous administration of 100 mL of Omnipaque 350 intravenous contrast, helical imaging was performed in the axial plane with generation of coronal and sagittal reformatted images. This CT examination was performed using dose optimization techniques as appropriate, variously including the following: *Automated exposure control *Adjustment of mA and/or kV according to patient size (this includes techniques or standardized protocols for targeted exams where dose is matched to indication/reason for exam; i.e. extremities or head) *Use of iterative reconstruction technique FINDINGS: There is a 1.3 cm right level 2A lymph node on image 50 of series 2 with some low-attenuation seen within the posterior aspect of the lymph node that may reflect cystic change or necrosis. There is a small low-density left level 2A lymph node measuring 0.8 cm. A level 1B lymph node identified on the previous ultrasound is not definitively seen on this exam. Given the heterogeneity of these nodes, consider a PET for further evaluation to exclude any underlying malignant process. The parotid glands are homogeneous in attenuation. The submandibular glands are normal. The thyroid gland is normal. There is bandlike irregular enhancement at the midline tongue base that can be correlated with direct visual inspection. The No retropharyngeal fluid collection is seen. The laryngeal structures are normal. The parapharyngeal fat is preserved. The carotid sheath vasculature opacify normally. The superior mediastinum is unremarkable. The lung apices are clear. The mastoid air cells and visualized portions of the paranasal sinuses are well-aerated. There are postoperative changes following ACDF and posterior instrumented fusion at the C4-C7 levels The imaged portions of the brain parenchyma are unremarkable. CT/CT soft tissue neck w IV con IMPRESSION: There is a 1.3 cm right level 2A lymph node on image 50 of series 2 with some low-attenuation seen within the posterior aspect of the lymph node that may reflect cystic change or necrosis. There is a small low-density left level 2A lymph node measuring 0.8 cm. A level 1B lymph node identified on the previous ultrasound is not definitively seen on this exam. Given the heterogeneity of these nodes, consider a PET for further evaluation to exclude any underlying malignant process. There is bandlike irregular enhancement at the midline tongue base that can be correlated with direct visual inspection.
[2022-12-20] MEDS: iohexoL 350 MG/ML 100 ML INFUS..BTL IV (10:24)
[2022-12-21 11:14] LABS: Creatinine POC 0.9 mg/dL (0.5-1.4); GFR POC 60
== END 2022-12-20 09:23 | disposition home or self-care (01) ==
LOC: HO.CT 09:22
PROVIDERS: PCP Family Medicine; Visit Provider Otolaryngology
DX: R59.0 Localized enlarged lymph nodes (principal); D86.9 Sarcoidosis, unspecified
CPT/HCPCS: 70491; 82565; Q9967

== ENCOUNTER 2023-02-28 08:04 | Outpatient (REF) | payer OTHER, SELFPAY ==
--- NOTE | ~2023-02-28 | XR_ITS ---
EXAMINATION: XR HAND, RIGHT CLINICAL INFORMATION: Pain in right hand COMPARISON: None available. TECHNIQUE: PA, lateral, and oblique views of the right hand. FINDINGS: The bones are intact. No fracture. Alignment is anatomic. There is mild degenerative changes DIP joints of the ring finger. No erosions or soft tissue calcifications. XR/XR hand RT min 3V IMPRESSION: Mild degenerative changes of the DIP joints of the ring finger.
== END 2023-02-28 08:05 | disposition home or self-care (01) ==
LOC: HO.HOSX 08:04
PROVIDERS: Visit Provider Orthopaedic Surgery
DX: M79.641 Pain in right hand (principal); M67.441 Ganglion, right hand
CPT/HCPCS: 73130; 99202

== ENCOUNTER 2023-03-29 09:31 | Outpatient (REF) | payer OTHER, SELFPAY | END 2023-03-29 09:32 | disposition home or self-care (01) | LOC: HO.LAB 09:31 | PROVIDERS: PCP Family Medicine; Visit Provider Family Medicine | DX: Z00.00 Encounter for general adult medical examination without abnormal findings (principal); R22.30 Localized swelling, mass and lump, unspecified upper limb; I10 Essential (primary) hypertension | CPT/HCPCS: 36415; 80053; 80061; 82043; 84443 ==

== ENCOUNTER 2023-04-04 09:40 | Outpatient (AMB) | payer OTHER, SELFPAY ==
--- NOTE | 2023-04-04 09:43 | MHC.PC.OV ---
Vital Signs 04/04/23 09:44 Height 5 ft Weight 149 lb 8 oz BMI 29.2 BP 112/70 Blood Pressure Location Rt brachial Position Sitting Respiration 12 Pulse 66 Pulse Source Pulse Oximeter Temp 97.3 F Temp Source Temporal Artery Scan Pulse Oximetry (%) 97 Oxygen Delivery Method Room Air Intake Visit Reasons: f/u diabetes Intake Note: Patient's last a1c was in January 2023 and was a 6.1. Fuel Cell Binder Required: No Accompanied by: Self / Same As Patient Allergies fentanyl [FENTANYL] Allergy (Intermediate, Verified 04/04/23 09:50) HIVES morphine [MORPHINE] Allergy (Intermediate, Verified 04/04/23 09:50) HIVES nickel [NICKEL] Allergy (Intermediate, Verified 04/04/23 09:50) RASH NSAIDS (Non-Steroidal Anti-Inflamma [NSAIDS (NON-STEROIDAL ANTI-INFLAMMA] Allergy (Intermediate, Verified 04/04/23 09:50) HIVES oxycodone [OXYCODONE] Allergy (Intermediate, Verified 04/04/23 09:50) HIVES ranitidine [Zantac] Allergy (Intermediate, Verified 04/04/23 09:50) rash silver [From TEGADERM AG MESH] Allergy (Intermediate, Verified 04/04/23 09:50) HIVES prednisone Adverse Reaction (Intermediate, Verified 04/04/23 09:50) RAsh OxyContin Allergy (Intermediate, Uncoded 02/28/23 08:15) RAsh red dye for scans Allergy (Intermediate, Uncoded 02/28/23 08:15) RAsh Medication List - Last Reconciled 04/04/23 by Jack Calderón MD blood sugar diagnostic As directed blood sugar diagnostic (OneTouch Verio test strips) As directed blood-glucose meter (OneTouch Verio Flex Start kit) Daily, As directed. 999 days budesonide-formoterol 160-4.5 mcg/actuation 2 puffs PO BID cetirizine 10 mg PO DAILY PRN diclofenac sodium 1% 2 grams topical QID estradiol (Estring) 1 vag ring vaginal [id number] fluoxetine 40 mg (2 x 20 mg) PO DAILY fluticasone propionate 50 mcg/actuation 1 spray intranasal DAILY fremanezumab-vfrm (Ajovy Syringe) mg subcut Q4W gabapentin 600 mg PO TID 90 days ipratropium bromide 17 mcg/actuation 1 inh inhalation BID lancets As directed lancets (OneTouch Delica Lancets) To test blood sugar As directed, 90 days meloxicam 15 mg PO DAILY PRN metformin 500 mg PO DAILY omeprazole 40 mg PO DAILY 90 days semaglutide 0.25 mg (0.1875 mL) subcut QWEEK 28 days semaglutide (Ozempic) 0.25 mg subcut QWEEK sumatriptan succinate 100 mg PO DAILY PRN triamcinolone acetonide 0.1% 1 appl topical BID Tobacco use date assessed: 11/01/22 Fall risk assessment: 2 + Falls in past year Last assessed Fall Risk: 04/04/23 Dental Screening Dental Screen Date: 04/04/23 Did you have a dental visit in the last 12 months?: Yes Did you have a dental problem in the last 6 months where you did not have access to dental care?: No Was dental information given to patient?: Patient has dentist HPI f/u diabetes HPI Details 67 y/o female presents to f/u diabetes. Had sent her ozempic as she had been having difficulty with weight loss and does have diabetes with an A1c that has climbed the past 2 visits. Last A1c 01/31/23 6.1%. She is on metformin 500mg daily and ozempic 0.25mg. Pt notes morning blood sugars have been in the 130s. Labs were drawn 03/29/23. Reviewed labs with pt. Triglycerides 101. TC 197. LDL 118. HDL 59. Pt reports ongoing dizziness. PFSH Medical History Arthritis Asthma Back pain Diabetes Essential hypertension GERD (gastroesophageal reflux disease) Hx of migraine headaches Hx of sarcoidosis TIA (transient ischemic attack) Surgical History H/O colonoscopy History of fusion of cervical spine History of lumbar fusion History of surgery History of total replacement of both hip joints Social History Housing: Apartment Are you a primary day care provider to a significant other at home: No Do you presently have visiting nurse or other home services: No Alcohol intake: never Patient Tobacco Use Status: Never used Tobacco e-Cigarette/Vaping Use: Never Used Second Hand Smoke Exposure: Yes service: No Current occupational status: retired Current occupational exposures/hazards: No Cognitive needs: No Hearing needs: No Vision needs: No (Glasses) Questionnaire Thrive Questionnaire Date Thrive assessed: 11/01/22 REGINA-7 AMB Questionnaire REGINA-7 Date REGINA - 7 assessed: 11/01/22 Source: Developed by Drs. Zaki Shukla, Vanessa Zazueta, Fabio Rosario and colleagues, with an educational katharine from [employer]. Review of Systems Const Denies chills, Denies fatigue, Denies fever(s), Denies headache(s) and Denies weakness ENT Denies dizziness and Denies headache(s) Card Denies chest pain, Denies lightheadedness, Denies dyspnea and Denies other (Palpitations) Resp Denies cough, Denies dyspnea, Denies wheezing and Denies other ( shortness of breath) Musc Denies numbness and Denies tingling Neuro Denies dizziness, Denies headache(s), Denies numbness, Denies tingling, Denies paresthesias and Denies weakness Psych Denies anxiety and Denies depression Endo Denies fatigue Aller/Immun Denies wheezing Physical exam (Primary Care) Vital Signs: Last Vital Signs Temp 97.3 F 04/04/23 09:44 Pulse 66 04/04/23 09:44 Resp 12 04/04/23 09:44 BP 112/70 04/04/23 09:44 Pulse Ox 97 04/04/23 09:44 Oxygen Delivery Method Room Air 04/04/23 09:44 BMI result Body Mass Index 29.2 Tobacco/Smoking Status: Tobacco use Status Tobacco use date assessed 11/01/22 04/04/23 09:43 Patient Tobacco Use Status Never used Tobacco 04/04/23 09:43 e-Cigarette/Vaping Use Never Used 04/04/23 09:43 Thrive Assessment: Date of Thrive Assessment Date Thrive assessed 11/01/22 04/04/23 09:43 Const General: no acute distress and well developed Nutritional Appearance: well nourished Orientation/consciousness: patient oriented x3 HENMT Head: Yes normocephalic and Yes atraumatic Eyes General: appearance normal, both eyes and all related structures Pupils: Equal, round and reactive pupils present EOM: EOMs intact bilaterally Resp Effort & Inspection: normal respiratory effort Auscultation: clear to auscultation bilaterally Cardio Rate: regular rate Rhythm: regular rhythm Heart sounds: S1 normal heart sound present, S2 normal heart sound present, no gallops, no murmurs and no rubs Neuro General: patient oriented x3 and gait normal Cranial nerves: Yes Equal, round and reactive pupils present Psych Affect: normal affect Assessment and Plan Assessment & Plan (1) Diabetes mellitus type 2, controlled: Code(s): E11.9 - Type 2 diabetes mellitus without complications Plan: Tolerating Ozempic. Blood sugars have been in the 130s however and she has had no significant weight loss Increasing Ozempic Continue metformin as prescribed (2) Vertigo: Code(s): R42 - Dizziness and giddiness Medications: Changed From semaglutide Titrating slowly; Patient will continue 0.25 mg dosing until follow-up with provider. 0.25 mg (0.1875 mL) subcut QWEEK 28 days 0.75 mL 2RF E11.9 - Type 2 diabetes mellitus without complications, E66.3 - Overweight To semaglutide Now taking 0.5mg per dose. 0.5 mg (0.8 mL) subcut QWEEK 28 days 3.2 mL 2RF E11.9 - Type 2 diabetes mellitus without complications, E66.3 - Overweight Coding Level of Care Code Est Pt Level 3 (26602) Diagnoses Diabetes mellitus type 2, controlled E11.9 Vertigo R42
[2023-04-04 09:44] VITALS: BP 112/70; PULSE 66; RESP 12; TEMP 36.3; O2SAT 97; BMI 29.2
== END 2023-04-04 10:26 | disposition home or self-care (01) ==
PROVIDERS: Visit Provider Family Medicine
DX: E11.9 Type 2 diabetes mellitus without complications (principal); R42 Dizziness and giddiness
CPT/HCPCS: 99213

== ENCOUNTER 2023-06-14 10:53 | Outpatient (AMB) | payer OTHER, SELFPAY ==
--- NOTE | 2023-06-14 10:57 | MHC.PC.OV ---
Vital Signs 06/14/23 11:11 Height 5 ft Weight 143 lb 4 oz BMI 28.0 BP 116/68 Blood Pressure Location Lt brachial Position Sitting Respiration 13 Pulse 76 Pulse Source Pulse Oximeter Temp 97.9 F Temp Source Temporal Artery Scan Pulse Oximetry (%) 96 Oxygen Delivery Method Room Air Intake Visit Reasons: Extended exam with f/u labs and health maintenance Intake Note: Patient is here for an extended exam and to review labs. Patient reports she does not want to take Ozempic anymore due to the medication making her feel sick. Auto Air Conditioning Installer Required: No Accompanied by: Self / Same As Patient Allergies fentanyl [FENTANYL] Allergy (Intermediate, Verified 06/14/23 11:13) HIVES morphine [MORPHINE] Allergy (Intermediate, Verified 06/14/23 11:13) HIVES nickel [NICKEL] Allergy (Intermediate, Verified 06/14/23 11:13) RASH NSAIDS (Non-Steroidal Anti-Inflamma [NSAIDS (NON-STEROIDAL ANTI-INFLAMMA] Allergy (Intermediate, Verified 06/14/23 11:13) HIVES oxycodone [OXYCODONE] Allergy (Intermediate, Verified 06/14/23 11:13) HIVES ranitidine [Zantac] Allergy (Intermediate, Verified 06/14/23 11:13) rash silver [From TEGADERM AG MESH] Allergy (Intermediate, Verified 06/14/23 11:13) HIVES prednisone Adverse Reaction (Intermediate, Verified 06/14/23 11:13) RAsh OxyContin Allergy (Intermediate, Uncoded 02/28/23 08:15) RAsh red dye for scans Allergy (Intermediate, Uncoded 02/28/23 08:15) RAsh Tobacco use date assessed: 11/01/22 Fall risk assessment: No Falls in past year Last assessed Fall Risk: 06/14/23 Dental Screening Dental Screen Date: 06/14/23 Did you have a dental visit in the last 12 months?: Yes Did you have a dental problem in the last 6 months where you did not have access to dental care?: No Was dental information given to patient?: Patient has dentist HPI Extended exam with f/u labs and health maintenance HPI Details 67 y/o female presents for an extended exam with f/u labs and health maintenance. Had increased her ozempic last office visit as her blood sugars were in the 130s. No recent labs to review. Has lost about 6 lbs since last office visit 04/04/23. BMI today 28.0. A1c today 06/14/23 is 5.4%. She reports she has not been tolerating ozempic well. Mammogram was at [facility] per pt. [facility] Medical History Arthritis Back pain Diabetes GERD (gastroesophageal reflux disease) TIA (transient ischemic attack) Hx of migraine headaches Hx of sarcoidosis Asthma Essential hypertension Surgical History History of surgery History of fusion of cervical spine History of lumbar fusion History of total replacement of both hip joints H/O colonoscopy Family History Father Colon cancer Diabetes mellitus CVD (cardiovascular disease) COPD (chronic obstructive pulmonary disease) Smoker Mother Lung cancer Son Diabetes mellitus ETOH abuse Depression Social History Housing: Apartment Are you a primary primary care physician to a significant other at home: No Do you presently have visiting nurse or other home services: No Alcohol intake: never Patient Tobacco Use Status: Never used Tobacco e-Cigarette/Vaping Use: Never Used Second Hand Smoke Exposure: Yes service: No Current occupational status: retired Current occupational exposures/hazards: No Cognitive needs: No Hearing needs: No Vision needs: No (Glasses) Questionnaire Thrive Questionnaire Date Thrive assessed: 11/01/22 REGINA-7 AMB Questionnaire REGINA-7 Date REGINA - 7 assessed: 11/01/22 Source: Developed by Drs. Zaki Shukla, Vanessa Zazueta, Fabio Rosario and colleagues, with an educational katharine from [employer]. Review of Systems Const Denies chills, Denies fatigue, Denies fever(s), Denies headache(s) and Denies weakness Eyes Denies change in vision ENT Denies dizziness, Denies headache(s), Denies hearing loss, Denies nasal congestion, Denies sinus pain, Denies sinus pressure and Denies sore throat Card Denies chest pain, Denies lightheadedness, Denies dyspnea and Denies other (palpitations) Resp Denies cough, Denies dyspnea and Denies wheezing GI Denies abdominal pain, Denies melena, Denies hematochezia, Denies change in bowel habits, Denies dyspepsia and Denies nausea Denies hematuria and Denies dysuria Musc Denies abnormal gait, Denies myalgias, Denies arthralgias, Denies numbness and Denies tingling Skin/Breast Denies rash, Denies unusual bruising and Denies wounds Neuro Denies abnormal gait, Denies dizziness, Denies headache(s), Denies memory loss, Denies numbness, Denies Sensory deficit (Neuro), Denies tingling and Denies weakness Psych Denies anxiety, Denies depression and Denies memory loss Endo Denies cold intolerance, Denies fatigue, Denies heat intolerance, Denies polydipsia and Denies polyuria Sai/Lymph Denies easy bleeding and Denies easy bruising Aller/Immun Denies wheezing Physical exam (Primary Care) Vital Signs: Last Vital Signs Temp 97.9 F 06/14/23 11:11 Pulse 76 06/14/23 11:11 Resp 13 06/14/23 11:11 BP 116/68 06/14/23 11:11 Pulse Ox 96 06/14/23 11:11 Oxygen Delivery Method Room Air 06/14/23 11:11 BMI result Body Mass Index 28.0 Tobacco/Smoking Status: Tobacco use Status Tobacco use date assessed 11/01/22 06/14/23 10:58 Patient Tobacco Use Status Never used Tobacco 06/14/23 10:58 e-Cigarette/Vaping Use Never Used 06/14/23 10:58 Thrive Assessment: Date of Thrive Assessment Date Thrive assessed 11/01/22 06/14/23 10:58 Const General: no acute distress, well developed, alert and awake Nutritional Appearance: well nourished Orientation/consciousness: patient oriented x3 HENMT Head: Yes normocephalic and Yes atraumatic Ears: hearing grossly normal bilaterally and TM's normal bilaterally General nose exam: Normal external nose present and Normal nares present Mouth: Normal oral and palatal mucosa present and moist mucous membranes Teeth and gingiva: dentition normal Throat: Yes posterior oropharynx normal Eyes General: appearance normal, both eyes and all related structures Pupils: Equal, round and reactive pupils present and Pupil accommodation reflex normal EOM: EOMs intact bilaterally Neck Neck: Yes normal visual inspection, Yes no lymphadenopathy and Yes trachea midline Thyroid: Thyroid normal Carotids: no bruits Lymphatic: no lymphadenopathy noted Chest Chest palpation & inspection: normal inspection of the chest Resp Effort & Inspection: normal respiratory effort Auscultation: clear to auscultation bilaterally Cardio Rate: regular rate Rhythm: regular rhythm Heart sounds: S1 normal heart sound present, S2 normal heart sound present, no gallops, no murmurs and no rubs Bruits: no abdominal aortic bruits and no carotid bruits GI Palpation (GI): No Abdominal aortic bruit present, Soft to palpation, nontender, No hepatosplenomegaly present and No Rebound tenderness present Auscultation: normal bowel sounds General: Yes no CVA tenderness Back/Spine/Pelvis Back: no CVA tenderness Cervical Spine: cervical ROM normal and No Cervical spine tenderness Thoracic/Lumbar Spine: thoraco-lumbar ROM normal, No pain with thoraco-lumbar ROM, No thoracic spinal tenderness and No lumbar spinal tenderness Skin Lesions: no lesions Rashes: no rashes Trauma: no lacerations or abrasions Wounds: no wounds Nails: normal Neuro General: patient oriented x3 Cranial nerves: Yes Equal, round and reactive pupils present Cognition (Neuro): normal cognition Gait exam (Neuro): Normal gait present Motor exam (neuro): 5/5 motor strength present throughout Sensory Exam: No Sensory deficit (Neuro) Deep tendon reflexes (DTR's): Right patellar reflex intensity grade: 2+ and Left patellar reflex intensity grade: 2+ Extrem General: Yes normal to inspection and No edema Psych Appearance: grossly normal Affect: normal affect Attitude: cooperative Thought process: Normal thought process present Results AMB Hemoglobin A1c AMB Hemoglobin A1c 5.4 % Last Edit by Melissa Doss on 06/14/23 11:33 Results Reviewed Results Reviewed: Laboratory Last Values Hgb A1c (Clinic) 5.4 % (4.0-6.0) 06/14/23 11:32 Assessment and Plan Assessment & Plan (1) Diabetes mellitus type 2, controlled: Code(s): E11.9 - Type 2 diabetes mellitus without complications Plan: She has been having some difficulty with Ozempic, particularly since increasing the dose. She will trial using the lower dose again but if she is not able to tolerate it she will discontinue this. Her A1c has improved to 5.4%. She has lost about 6 or 7 lb. Continue the rest of your diabetic medication regimen as prescribed (2) Contact dermatitis: Code(s): L25.9 - Unspecified contact dermatitis, unspecified cause Plan: Has a inspector electromechanical who has given her a topical medication for this. I also recommended she avoid exposure to any inciting materials and Use a moisturizer that has no dyes or Perfumes Hydrate well (3) Cerumen impaction: Code(s): H61.20 - Impacted cerumen, unspecified ear Plan: She can use Debrox drops OTC (4) Screening for cervical cancer: Code(s): Z12.4 - Encounter for screening for malignant neoplasm of cervix Plan: No longer has a cervix. She does have OBGYN visits regularly (5) Screening for colon cancer: Code(s): Z12.11 - Encounter for screening for malignant neoplasm of colon Plan: Colonoscopy about a year ago with Dr. Duong. She says she was told to follow-up in 5 years (6) Screening for osteoporosis: Code(s): Z13.820 - Encounter for screening for osteoporosis Plan: Due for screening for osteoporosis. (7) Screening for breast cancer: Code(s): Z12.39 - Encounter for other screening for malignant neoplasm of breast Plan: Mammogram at [facility] around October of 2022. Patient says she was told to continue annual screening but that there was something seen at right breast. She will follow-up with her next mammogram as recommended. Mammograms managed by her polisher sand at [facility] (8) At risk for osteoporosis: Code(s): Z91.89 - Other specified personal risk factors, not elsewhere classified Plan: 67-year-old female-due for bone density testing. (9) Adult general medical exam: Code(s): Z00.00 - Encounter for general adult medical examination without abnormal findings Plan: 67-year-old female presents for an extended exam Encouraged healthy diet with active lifestyle and plenty of exercise Orders: Orders XR DEXA axial skeleton Today Z13.820 - Encounter for screening for osteoporosis, Z91.89 - Other specified personal risk factors, not elsewhere classified Lipid Panel Today Z00.00 - Encounter for general adult medical examination without abnormal findings Comprehensive Mathews. Panel Fast Today Z00.00 - Encounter for general adult medical examination without abnormal findings Coding Level of Care Code Est Pt Level 4 (51873) Diagnoses Diabetes mellitus type 2, controlled E11.9 Contact dermatitis L25.9 Cerumen impaction H61.20 Screening for cervical cancer Z12.4 Screening for colon cancer Z12.11 Screening for osteoporosis Z13.820 Screening for breast cancer Z12.39 At risk for osteoporosis Z91.89 Adult general medical exam Z00.00
[2023-06-14 11:11] VITALS: BP 116/68; PULSE 76; RESP 13; TEMP 36.6; O2SAT 96; BMI 28.0
== END 2023-06-14 11:56 | disposition home or self-care (01) ==
PROVIDERS: PCP Family Medicine; Visit Provider Family Medicine
DX: Z00.00 Encounter for general adult medical examination without abnormal findings (principal); E11.9 Type 2 diabetes mellitus without complications; L25.9 Unspecified contact dermatitis, unspecified cause; Z91.89 Other specified personal risk factors, not elsewhere classified; Z12.39 Encounter for other screening for malignant neoplasm of breast
CPT/HCPCS: 99397

== ENCOUNTER 2023-07-04 10:45 | Outpatient (REF) | payer OTHER, SELFPAY ==
--- NOTE | ~2023-07-04 | MM_ITS ---
EXAMINATION: BONE DENSITOMETRY CLINICAL INDICATION: Other specified personal risk factors, not elsewhere classified. COMPARISON: This is the patient's baseline examination. TECHNIQUE: Using a [employer] DXA System (software version: 13.1) manufactured by [employer], dual-energy x-ray absorptiometry was performed of the lumbar spine and left forearm radius 33%. Patient has had bilateral hip surgery. The images are of good technical quality. Summary results are attached. FINDINGS: AP SPINE L1-L2 (excluding L3 and L4): The data of L1-L4 has been changed to exclude the L3 and L4 vertebral bodies, because degenerative sclerosis at these levels may cause overestimation of lumbar spine density. BMD 1.110 g/cm2, Z-score 1.2, T-score -0.5, normal. LEFT FOREARM RADIUS 33%: BMD 0.744 g/cm2, Z-score -0.1, T-score -1.5, osteopenia. IDENTIFIED RISK FACTORS: Early menopause, secondary osteoporosis, hysterectomy, bilateral oophorectomy, history of fracture (adult), osteoporosis. HISTORY OF FRACTURE: None listed. MEDICATIONS: Vitamin D, ERT/SERMS. MM/XR DEXA axial skeleton IMPRESSION: 1. DIAGNOSIS: Osteopenia based on the lowest T-score value of -1.5 in the forearm radius 33% applying World Health Organization criteria. 2. 10-YEAR FRACTURE RISK PREDICTION, FRAX: Not performed in this patient without a femoral neck BMD measurement. 3. Treatment Recommendations: NOF guidelines recommend consideration for treatment in postmenopausal women and men age 50 and older presenting with the following: -A hip or vertebral (clinical or morphometric) fracture. -T-score less than or equal to -2.5 at the femoral neck or spine after appropriate evaluation to exclude secondary causes. -Low bone mass at the hip or spine and a 10-year fracture probability by FRAX of greater than or equal to 3% for hip fracture or greater than or equal to 20% for major osteoporotic fracture based on the [place] adapted WHO algorithm. 4. Other Recommendations: All treatment decisions require clinical judgment and consideration of individual patient factors, including patient preferences, comorbidities, previous drug use, risk factors not captured in the FRAX model (e.g. frailty, falls, vitamin D deficiency, increased bone turnover, interval significant decline in bone density) and possible under or overestimation of fracture risk by FRAX. Additional medical evaluation for secondary cause of low bone mineral density may be appropriate. FUTURE SCAN RECOMMENDATION: People with diagnosed cases of osteoporosis or at high risk for fracture should have regular bone mineral density tests. For patients eligible for Medicare, routine testing is allowed once every 2 years. The testing frequency can be increased to one year for patients who have rapidly progressing disease, those who are receiving or discontinuing medical therapy to restore bone mass, or have additional risk factors.
== END 2023-07-04 10:46 | disposition home or self-care (01) ==
LOC: HO.MAMMO 10:45
PROVIDERS: PCP Family Medicine; Visit Provider Family Medicine
DX: Z13.820 Encounter for screening for osteoporosis (principal); Z91.89 Other specified personal risk factors, not elsewhere classified; Z78.0 Asymptomatic menopausal state
CPT/HCPCS: 77080

== ENCOUNTER 2023-07-18 13:31 | Outpatient (AMB) | payer OTHER, SELFPAY ==
[2023-07-18 13:36] VITALS: BP 124/68; PULSE 75; RESP 13; TEMP 36.5; O2SAT 98; BMI 27.8
--- NOTE | 2023-07-18 13:36 | A.OFFPC_ITS ---
Vital Signs 07/18/23 13:36 Height 5 ft Weight 142 lb 2 oz BMI 27.8 BP 124/68 Blood Pressure Location Lt brachial Position Sitting Respiration 13 Pulse 75 Pulse Source Pulse Oximeter Temp 97.7 F Temp Source Temporal Artery Scan Pulse Oximetry (%) 98 Oxygen Delivery Method Room Air Intake Visit Reasons: not feeling well Intake Note: Patient states that her feeling unwell may be due to weather change and allergies. Patient statesz she has bee experiencing headches, itchy nose, itchy eyes, itchy throat with the slightest dry cough. Accompanied by: Self / Same As Patient Allergies fentanyl [FENTANYL] Allergy (Intermediate, Verified 07/18/23 14:15) HIVES morphine [MORPHINE] Allergy (Intermediate, Verified 07/18/23 14:15) HIVES nickel [NICKEL] Allergy (Intermediate, Verified 07/18/23 14:15) RASH NSAIDS (Non-Steroidal Anti-Inflamma [NSAIDS (NON-STEROIDAL ANTI-INFLAMMA] Allergy (Intermediate, Verified 07/18/23 14:15) HIVES oxycodone [OXYCODONE] Allergy (Intermediate, Verified 07/18/23 14:15) HIVES ranitidine [Zantac] Allergy (Intermediate, Verified 07/18/23 14:15) rash silver [From TEGADERM AG MESH] Allergy (Intermediate, Verified 07/18/23 14:15) HIVES prednisone Adverse Reaction (Intermediate, Verified 07/18/23 14:15) RAsh OxyContin Allergy (Intermediate, Uncoded 07/18/23 14:15) RAsh red dye for scans Allergy (Intermediate, Uncoded 07/18/23 14:15) RAsh Medication List - Last Reconciled 07/18/23 by Karlee Marrero CNP blood sugar diagnostic ([employer] Verio test strips) As directed blood-glucose meter (OneTouch Verio Flex Start kit) Daily, As directed. 999 days budesonide-formoterol 160-4.5 mcg/actuation 2 puffs PO BID cetirizine 10 mg PO DAILY PRN diclofenac sodium 1% 2 grams topical QID estradiol (Estring) 1 vag ring vaginal [id number] fluoxetine 40 mg (2 x 20 mg) PO DAILY fluticasone propionate 50 mcg/actuation 1 spray intranasal DAILY fremanezumab-vfrm (Ajovy Syringe) mg subcut Q4W gabapentin 600 mg PO TID 90 days ipratropium bromide 17 mcg/actuation 1 inh inhalation BID lancets ([employer] Lancets) To test blood sugar As directed, 90 days meloxicam 15 mg PO DAILY PRN metformin 500 mg PO DAILY omeprazole 40 mg PO DAILY 90 days sumatriptan succinate 100 mg PO DAILY PRN triamcinolone acetonide 0.1% 1 appl topical BID Tobacco use date assessed: 11/01/22 Fall risk assessment: No Falls in past year Last assessed Fall Risk: 07/18/23 Dental Screening Dental Screen Date: 07/18/23 Did you have a dental visit in the last 12 months?: Yes Did you have a dental problem in the last 6 months where you did not have access to dental care?: No Was dental information given to patient?: Patient has dentist HPI HPI Comments History of Present Illness Details 67-year-old female presents with complai nts of frontal headaches, itchy eyes, nose, and throat, and intermittent nonproductive cough. She notes that her symptoms have been ongoing for the past 1-2 weeks. Her symptoms have been refractory to cetirizine, flonase, sumatriptan, and Excedrin. She has history of migraines and also receives Ajovy injection monthly. She denies fever, chills, sore throat, body aches, fatigue, or weakness. She denies sick contact. [facility] Medical History Arthritis Back pain Diabetes GERD (gastroesophageal reflux disease) TIA (transient ischemic attack) Hx of migraine headaches Hx of sarcoidosis Asthma Essential hypertension Surgical History History of surgery History of fusion of cervical spine History of lumbar fusion History of total replacement of both hip joints H/O colonoscopy Family History Father Colon cancer Diabetes mellitus CVD (cardiovascular disease) COPD (chronic obstructive pulmonary disease) Smoker Mother Lung cancer Son Diabetes mellitus ETOH abuse Depression Social History Housing: Apartment Are you a primary caregivers non medical to a significant other at home: No Do you presently have visiting nurse or other home services: No Alcohol intake: never Patient Tobacco Use Status: Never used Tobacco e-Cigarette/Vaping Use: Never Used Second Hand Smoke Exposure: Yes service: No Current occupational status: retired Current occupational exposures/hazards: No Cognitive needs: No Hearing needs: No Vision needs: No (Glasses) Questionnaire Thrive Questionnaire Date Thrive assessed: 11/01/22 REGINA-7 AMB Questionnaire REGINA-7 Date REGINA - 7 assessed: 11/01/22 Source: Developed by Drs. Zaki Shukla, Vanessa Zazueta, Fabio Rosario and colleagues, with an educational katharine from [employer]. Review of Systems Const Details: Const Denies chills, Denies fatigue, Denies fever(s), Denies headache(s) and Denies weakness ENT Reports as per HPI Card Denies chest pain, Denies lightheadedness, Denies dyspnea and Denies other (Palpitations) Resp Denies cough, Denies dyspnea, Denies wheezing and Denies other ( shortness of breath) GI Denies abdominal pain, Denies melena, Denies hematochezia, Denies change in bowel habits, Denies dyspepsia and Denies nausea Denies hematuria and Denies dysuria Musc Denies abnormal gait, Denies myalgias, Denies arthralgias, Denies numbness and Denies tingling Skin/Breast Denies rash, Denies unusual bruising and Denies wounds Neuro Denies abnormal gait, Denies dizziness, Denies headache(s), Denies memory loss, Denies numbness, Denies Sensory deficit (Neuro), Denies tingling and Denies weakness Psych Denies anxiety, Denies depression, Denies memory loss Endo Denies cold intolerance, Denies fatigue, Denies heat intolerance, Denies polydipsia and Denies polyuria Aller/Immun Denies wheezing Physical exam (Primary Care) Vital Signs: Last Vital Signs Temp 97.7 F 07/18/23 13:36 Pulse 75 07/18/23 13:36 Resp 13 07/18/23 13:36 BP 124/68 07/18/23 13:36 Pulse Ox 98 07/18/23 13:36 Oxygen Delivery Method Room Air 07/18/23 13:36 BMI result Body Mass Index 27.8 Tobacco/Smoking Status: Tobacco use Status Tobacco use date assessed 11/01/22 07/18/23 13:45 Patient Tobacco Use Status Never used Tobacco 07/18/23 13:45 e-Cigarette/Vaping Use Never Used 07/18/23 13:45 Thrive Assessment: Date of Thrive Assessment Date Thrive assessed 11/01/22 07/18/23 13:45 Const Other: General: no acute distress and well developed Nutritional Appearance: well nourished Orientation/consciousness: patient oriented x3 HENMT Head is normocephalic Bilateral ear canal and TM are normal Nasal turbinates and oropharynx are pink and moist Sinuses are nontender with palpation No auricular or cervical lymphadenopathy Eyes General: appearance normal, both eyes and all related structures Pupils: Equal, round and reactive pupils present EOM: EOMs intact bilaterally Resp Effort & Inspection: normal respiratory effort Auscultation: clear to auscultation bilaterally Cardio Rate: regular rate Rhythm: regular rhythm Heart sounds: S1 normal heart sound present, S2 normal heart sound present, no gallops, no murmurs and no rubs GI Palpation (GI): No Abdominal aortic bruit present, Soft to palpation, nontender, No hepatosplenomegaly present and No Rebound tenderness present Auscultation: normal bowel sounds General: Yes no CVA tenderness Back/Spine/Pelvis Back: no CVA tenderness Cervical Spine: cervical ROM normal and No Cervical spine tenderness Thoracic/Lumbar Spine: thoraco-lumbar ROM normal, No pain with thoraco-lumbar ROM, No thoracic spinal tenderness and No lumbar spinal tenderness Extrem General: Yes normal to inspection, No edema and No calf tenderness Skin General: warm and dry. Normal skin color. Normal skin turgor Lesions: no lesions Rashes: no rashes Trauma: no lacerations or abrasions Wounds: no wounds Nails: normal Neuro General: patient oriented x3, gait normal and no focal neuro deficit Cranial nerves: Yes Equal, round and reactive pupils present Cognition (Neuro): normal cognition Gait exam (Neuro): Normal gait present Sensory Exam: No Sensory deficit (Neuro) Psych Appearance: grossly normal Affect: normal affect Attitude: cooperative Thought process: Normal thought process present Assessment and Plan Assessment & Plan (1) Seasonal allergies: Code(s): J30.2 - Other seasonal allergic rhinitis Plan: Reports frontal headaches, itchy eyes, nose, and throat, and intermittent nonproductive cough for the past 1-2 weeks No exam evidence of bacterial infection Likely seasonal allergies Continue to take cetirizine and migraine regimen, and use Flonase as prescribed Rest Hydrate well -? Drink plenty of fluids.? Especially water. Tylenol or ibuprofen for muscle aches, headache, fever/discomfort Follow-up with worsening or new symptoms Verbalized understanding and agreed with treatment plan. Coding Level of Care Code Est Pt Level 3 (13687) Diagnoses Seasonal allergies J30.2
== END 2023-07-18 14:28 | disposition home or self-care (01) ==
PROVIDERS: PCP Family Medicine; Visit Provider Nurse Practitioner Family
DX: J30.2 Other seasonal allergic rhinitis (principal)
CPT/HCPCS: 99213

== ENCOUNTER 2023-09-10 10:21 | Outpatient (REF) | payer OTHER, SELFPAY ==
[2023-09-10 12:27] LABS: Alanine Aminotransferase 13 U/L (0-31); Albumin Level 4.2 g/dL (3.5-5.0); Alkaline Phosphatase 57 U/L (39-117); Anion Gap 14 (12-20); Aspartate Amino Transferase 19 U/L (5-31); Bilirubin Total 0.6 mg/dL (0.0-1.0); Blood Urea Nitrogen 18 mg/dL (9-16); Calcium 9.5 mg/dL (8.4-10.2); Carbon Dioxide 23 mmol/L (22-29); Chloride 105 mmol/L (96-108); Cholesterol 191 mg/dL (<200); Estimated Glomerular Filt Rate > 60; Glucose Fasting 92 mg/dL (60-99); HDL Cholesterol 60 mg/dL (>40); LDL Cholesterol Calculated 113 mg/dL (<100); Potassium 4.3 mmol/L (3.3-5.1); Sodium 138 mmol/L (135-145); Total Protein 7.7 g/dL (6.5-8.0); Triglycerides 91 mg/dL (<150)
== END 2023-09-10 10:22 | disposition home or self-care (01) ==
LOC: HO.WFDLDS 10:21
PROVIDERS: Visit Provider Family Medicine
DX: Z00.00 Encounter for general adult medical examination without abnormal findings (principal); Z13.220 Encounter for screening for lipoid disorders
CPT/HCPCS: 36415; 80053; 80061

== ENCOUNTER 2023-09-12 09:41 | Outpatient (AMB) | payer OTHER, SELFPAY ==
[2023-09-12 10:14] VITALS: BP 120/74; PULSE 60; O2SAT 98; BMI 27.8
--- NOTE | 2023-09-12 10:14 | MHC.PC.OV ---
Vital Signs 09/12/23 10:14 Height 5 ft Weight 142 lb 6 oz BMI 27.8 BP 120/74 Blood Pressure Location Lt brachial Position Sitting Pulse 60 Pulse Source Pulse Oximeter Pulse Oximetry (%) 98 Oxygen Delivery Method Room Air Intake Visit Reasons: f/u diabetes Intake Note: Patient is here to follow up on diabetes today. Allergies fentanyl [FENTANYL] Allergy (Intermediate, Verified 09/12/23 10:17) HIVES morphine [MORPHINE] Allergy (Intermediate, Verified 09/12/23 10:17) HIVES nickel [NICKEL] Allergy (Intermediate, Verified 09/12/23 10:17) RASH NSAIDS (Non-Steroidal Anti-Inflamma [NSAIDS (NON-STEROIDAL ANTI-INFLAMMA] Allergy (Intermediate, Verified 09/12/23 10:17) HIVES oxycodone [OXYCODONE] Allergy (Intermediate, Verified 09/12/23 10:17) HIVES ranitidine [Zantac] Allergy (Intermediate, Verified 09/12/23 10:17) rash silver [From TEGADERM AG MESH] Allergy (Intermediate, Verified 09/12/23 10:17) HIVES prednisone Adverse Reaction (Intermediate, Verified 09/12/23 10:17) RAsh OxyContin Allergy (Intermediate, Uncoded 09/12/23 10:17) RAsh red dye for scans Allergy (Intermediate, Uncoded 09/12/23 10:17) RAsh Tobacco use date assessed: 09/12/23 Fall risk assessment: No Falls in past year Last assessed Fall Risk: 09/12/23 Dental Screening Dental Screen Date: 09/12/23 Did you have a dental visit in the last 12 months?: Yes Did you have a dental problem in the last 6 months where you did not have access to dental care?: No Was dental information given to patient?: Patient has dentist HPI f/u diabetes HPI Details 67 y/o female presents to f/u diabetes. Last A1c 06/14/23 5.4%. A1c today 09/12/23 is 5.8%. She is on metformin 500mg daily. She reports she had stopped her ozempic in April. Labs were drawn 09/10/23. Reviewed labs with pt. Triglycerides 91. TC 191. LDL 113. HDL 60. PFSH Medical History Arthritis Back pain Diabetes GERD (gastroesophageal reflux disease) TIA (transient ischemic attack) Hx of migraine headaches Hx of sarcoidosis Asthma Essential hypertension Surgical History History of surgery History of fusion of cervical spine History of lumbar fusion History of total replacement of both hip joints H/O colonoscopy Family History Father Colon cancer Diabetes mellitus CVD (cardiovascular disease) COPD (chronic obstructive pulmonary disease) Smoker Mother Lung cancer Son Diabetes mellitus ETOH abuse Depression Social History Housing: Apartment Are you a primary patient centered care specialist to a significant other at home: No Do you presently have visiting nurse or other home services: No Alcohol intake: never Patient Tobacco Use Status: Never used Tobacco e-Cigarette/Vaping Use: Never Used Second Hand Smoke Exposure: Yes service: No Current occupational status: retired Current occupational exposures/hazards: No Cognitive needs: No Hearing needs: No Vision needs: No (Glasses) Questionnaire Thrive Questionnaire Date Thrive assessed: 11/01/22 REGINA-7 AMB Questionnaire REGINA-7 Date REGINA - 7 assessed: 11/01/22 Source: Developed by Drs. Zaki Shukla, Vanessa Zazueta, Fabio Rosaroi and colleagues, with an educational katharine from [employer] Review of Systems Const Denies chills, Denies fatigue, Denies fever(s), Denies headache(s) and Denies weakness ENT Denies dizziness and Denies headache(s) Card Denies dyspnea Resp Denies cough, Denies dyspnea, Denies wheezing and Denies other (shortness of breath) Musc Denies numbness and Denies tingling Neuro Denies dizziness, Denies headache(s), Denies numbness, Denies tingling and Denies weakness Psych Denies anxiety and Denies depression Endo Denies fatigue Aller/Immun Denies wheezing Physical exam (Primary Care) Vital Signs: Last Vital Signs Pulse 60 09/12/23 10:14 BP 120/74 09/12/23 10:14 Pulse Ox 98 09/12/23 10:14 Oxygen Delivery Method Room Air 09/12/23 10:14 BMI result Body Mass Index 27.8 Tobacco/Smoking Status: Tobacco use Status Tobacco use date assessed 09/12/23 09/12/23 10:24 Patient Tobacco Use Status Never used Tobacco 09/12/23 10:24 e-Cigarette/Vaping Use Never Used 09/12/23 10:24 Thrive Assessment: Date of Thrive Assessment Date Thrive assessed 11/01/22 09/12/23 10:24 Const General: well developed; No acute distress Nutritional Appearance: well nourished Orientation/consciousness: patient oriented x3 [facility] Head: Yes normocephalic and Yes atraumatic Eyes General: appearance normal, both eyes and all related structures Pupils: Equal, round and reactive pupils present EOM: EOMs intact bilaterally Resp Effort & Inspection: normal respiratory effort Neuro General: patient oriented x3 and gait normal Cranial nerves: Yes Equal, round and reactive pupils present Psych Affect: normal affect Results AMB Hemoglobin A1c AMB Hemoglobin A1c 5.8 % Last Edit by Lois Kimball CMA on 09/12/23 10:33 Results Reviewed Results Reviewed: Laboratory Last Values Hgb A1c (Clinic) 5.8 % (4.0-6.0) 09/12/23 10:28 Assessment and Plan Assessment & Plan (1) Diabetes mellitus type 2, controlled: Code(s): E11.9 - Type 2 diabetes mellitus without complications Plan: A1c?today?5.8%.??Good?control?on?metformin.??Goal?is?less?than?7.0% She?had?stopped?Ozempic?due?to?feelings?of?fatigue?and?some?nausea?but?these?have?not?changed?with?discontinuance. She?would?like?to?resume?Ozempic?so?we?will?restart?this. Check?blood?sugars?and?watch?for?low?blood?sugars. (2) Hyperlipidemia: Code(s): E78.5 - Hyperlipidemia, unspecified Plan: LDL?cholesterol?113 Trial?Zetia (3) History of TIA (transient ischemic attack): Code(s): Z86.73 - Personal history of transient ischemic attack (TIA), and cerebral infarction without residual deficits Plan: Stable Work?at?lower?cholesterol (4) Cervicalgia: Code(s): M54.2 - Cervicalgia Plan: Cervicalgia?with?some?fatigue?and?had?had?mild?nausea?which?has?resolved Offered?physical?therapy?and?she?would?like?to?think?about?this?again?after?the?holidays. Orders: Orders AMB Hemoglobin A1c Today Z13.9 - Encounter for screening, unspecified Comprehensive [place]. Panel Fast Today E78.5 - Hyperlipidemia, unspecified, Z00.00 - Encounter for general adult medical examination without abnormal findings Lipid Panel Today E78.5 - Hyperlipidemia, unspecified, Z00.00 - Encounter for general adult medical examination without abnormal findings Medications: New ezetimibe (Zetia) 10 mg PO DAILY 30 tabs 2RF 30 days Refilled semaglutide 0.25 mg (0.368 mL) subcut QWEEK 1.6 mL 3RF 28 days E11.9 - Type 2 diabetes mellitus without complications, E66.3 - Overweight Coding Level of Care Code Est Pt Level 4 (08201) Diagnoses Diabetes mellitus type 2, controlled E11.9 Hyperlipidemia E78.5 History of TIA (transient ischemic attack) Z86.73 Cervicalgia M54.2
== END 2023-09-12 11:06 | disposition home or self-care (01) ==
PROVIDERS: PCP Family Medicine; Visit Provider Family Medicine
DX: E11.69 Type 2 diabetes mellitus with other specified complication (principal); E78.5 Hyperlipidemia, unspecified; Z86.73 Personal history of transient ischemic attack (TIA), and cerebral infarction without residual deficits; M54.2 Cervicalgia
CPT/HCPCS: 83036; 99214

== ENCOUNTER 2023-12-17 09:53 | Outpatient (REF) | payer OTHER, SELFPAY ==
[2023-12-17 12:53] LABS: Anion Gap 11 (12-20); Blood Urea Nitrogen 25 mg/dL (9-16); Carbon Dioxide 28 mmol/L (22-29); Chloride 103 mmol/L (96-108); Sodium 138 mmol/L (135-145)
[2023-12-17 12:54] LABS: Alanine Aminotransferase 11 U/L (0-31); Albumin Level 4.1 g/dL (3.5-5.0); Alkaline Phosphatase 54 U/L (39-117); Aspartate Amino Transferase 15 U/L (5-31); Bilirubin Total 0.6 mg/dL (0.0-1.0); Calcium 9.9 mg/dL (8.4-10.2); Cholesterol 152 mg/dL (<200); Estimated Glomerular Filt Rate > 60; Glucose Fasting 84 mg/dL (60-99); HDL Cholesterol 61 mg/dL (>40); LDL Cholesterol Calculated 77 mg/dL (<100); Total Protein 7.6 g/dL (6.5-8.0); Triglycerides 72 mg/dL (<150)
== END 2023-12-17 09:54 | disposition home or self-care (01) ==
LOC: HO.WFDLDS 09:53
PROVIDERS: Visit Provider Family Medicine
DX: Z00.00 Encounter for general adult medical examination without abnormal findings (principal); E78.5 Hyperlipidemia, unspecified
CPT/HCPCS: 36415; 80053; 80061

== ENCOUNTER 2023-12-19 09:40 | Outpatient (AMB) | payer OTHER, SELFPAY ==
[2023-12-19 09:47] VITALS: BP 104/64; PULSE 90; RESP 13; TEMP 36.4; O2SAT 97; BMI 26.2
--- NOTE | 2023-12-19 09:47 | A.OFFPC_ITS ---
Vital Signs 12/19/23 09:47 Height 5 ft Weight 134 lb 6 oz BMI 26.2 BP 104/64 Blood Pressure Location Rt brachial Position Sitting Respiration 13 Pulse 90 Pulse Source Pulse Oximeter Temp 97.6 F Temp Source Temporal Artery Scan Pulse Oximetry (%) 97 Oxygen Delivery Method Room Air Intake Visit Reasons: f/u diabetes Intake Note: Patient states that everytime she eats she ends up throwing up and has been nervous to eat. Patient was told that gabapentin takes a toll on kidneys and she is worried that is the cause. Director [employer] Required: No Accompanied by: Self / Same As Patient Allergies fentanyl [FENTANYL] Allergy (Intermediate, Verified 09/12/23 10:17) HIVES morphine [MORPHINE] Allergy (Intermediate, Verified 09/12/23 10:17) HIVES nickel [NICKEL] Allergy (Intermediate, Verified 09/12/23 10:17) RASH NSAIDS (Non-Steroidal Anti-Inflamma [NSAIDS (NON-STEROIDAL ANTI-INFLAMMA] Allergy (Intermediate, Verified 09/12/23 10:17) HIVES oxycodone [OXYCODONE] Allergy (Intermediate, Verified 09/12/23 10:17) HIVES ranitidine [Zantac] Allergy (Intermediate, Verified 09/12/23 10:17) rash Seasonal Allergies Allergy (Intermediate, Verified 12/19/23 09:55) Itchy Eyes silver [From TEGADERM AG MESH] Allergy (Intermediate, Verified 09/12/23 10:17) HIVES prednisone Adverse Reaction (Intermediate, Verified 09/12/23 10:17) RAsh OxyContin Allergy (Intermediate, Uncoded 09/12/23 10:17) RAsh red dye for scans Allergy (Intermediate, Uncoded 09/12/23 10:17) RAsh Tobacco use date assessed: 12/19/23 Fall risk assessment: No Falls in past year Last assessed Fall Risk: 12/19/23 Dental Screening Dental Screen Date: 12/19/23 Did you have a dental visit in the last 12 months?: Yes Did you have a dental problem in the last 6 months where you did not have access to dental care?: No Was dental information given to patient?: Patient has dentist HPI f/u diabetes HPI Details 68 y/o female presents to f/u diabetes. A1c today 12/19/23 6.0%. Lipid panel drawn 12/17/23. Triglycerides 72. TC 152. LDL 77. HDL 61. She is on zetia 10mg daily. Hx of TIA. HPI Comments History of Present Illness Details Documentation assistance for Jack Calderón MD, was provided by Flo Fong,? Legislative Aide on 12/19/2023 10:18 AM BRIANNA. Charlene, Dr. Calderón, have read, observed, and verified documentation. PFSH Medical History Arthritis Back pain Diabetes GERD (gastroesophageal reflux disease) TIA (transient ischemic attack) Hx of migraine headaches Hx of sarcoidosis Asthma Essential hypertension Surgical History History of surgery History of fusion of cervical spine History of lumbar fusion History of total replacement of both hip joints H/O colonoscopy Family History Father Colon cancer Diabetes mellitus CVD (cardiovascular disease) COPD (chronic obstructive pulmonary disease) Smoker Mother Lung cancer Son Diabetes mellitus ETOH abuse Depression Social History Housing: Apartment Are you a primary pediatric critical care nurse to a significant other at home: No Do you presently have visiting nurse or other home services: No Alcohol intake: never Patient Tobacco Use Status: Never used Tobacco e-Cigarette/Vaping Use: Never Used Second Hand Smoke Exposure: Yes service: No Current occupational status: retired Current occupational exposures/hazards: No Cognitive needs: No Hearing needs: No Vision needs: No (Glasses) Questionnaire Thrive Questionnaire Date Thrive assessed: 11/01/22 REGINA-7 AMB Questionnaire REGINA-7 Date REGINA - 7 assessed: 11/01/22 Source: Developed by Drs. Zaki Shukla, Vanessa Zazueta, Fabio Rosario and colleagues, with an educational katharine from [employer]. Review of Systems Const Denies chills, Denies fatigue, Denies fever(s), Denies headache(s) and Denies weakness ENT Denies dizziness and Denies headache(s) Card Denies dyspnea Resp Denies cough, Denies dyspnea, Denies wheezing and Denies other (shortness of breath) Musc Denies numbness and Denies tingling Neuro Denies dizziness, Denies headache(s), Denies numbness, Denies tingling and Denies weakness Psych Denies anxiety and Denies depression Endo Denies fatigue Aller/Immun Denies wheezing Physical exam (Primary Care) Vital Signs: Last Vital Signs Temp 97.6 F 12/19/23 09:47 Pulse 90 12/19/23 09:47 Resp 13 12/19/23 09:47 BP 104/64 12/19/23 09:47 Pulse Ox 97 12/19/23 09:47 Oxygen Delivery Method Room Air 12/19/23 09:47 BMI result Body Mass Index 26.2 Tobacco/Smoking Status: Tobacco use Status Tobacco use date assessed 12/19/23 12/19/23 10:01 Patient Tobacco Use Status Never used Tobacco 12/19/23 09:50 e-Cigarette/Vaping Use Never Used 12/19/23 09:50 Thrive Assessment: Date of Thrive Assessment Date Thrive assessed 11/01/22 12/19/23 09:50 Const General: well developed; No acute distress Nutritional Appearance: well nourished Orientation/consciousness: patient oriented x3 HENMT Head: Yes normocephalic and Yes atraumatic Eyes General: appearance normal, both eyes and all related structures Pupils: Equal, round and reactive pupils present EOM: EOMs intact bilaterally Resp Effort & Inspection: normal respiratory effort Neuro General: patient oriented x3 and gait normal Cranial nerves: Yes Equal, round and reactive pupils present Psych Affect: normal affect Results AMB Hemoglobin A1c AMB Hemoglobin A1c 6.0 % Last Edit by Melissa Doss CMA on 12/19/23 10:06 Results Reviewed Results Reviewed: Laboratory Last Values Hgb A1c (Clinic) 6.0 % (4.0-6.0) 12/19/23 10:06 Assessment and Plan Assessment & Plan (1) Hyperlipidemia: Code(s): E78.5 - Hyperlipidemia, unspecified Plan: Lipids?now fairly?well?contr olled?on?Zetia.??She?has?diabetes?and?also?history?of?TIA. LDL?goal?less?than?100 vs less?than?70.??Her?LDL?was?77?on?Zetia?alone.??She?has?declined?taking?statin?me dications. Continue?Zetia (2) History of TIA (transient ischemic attack): Code(s): Z86.73 - Personal history of transient ischemic attack (TIA), and cerebral infarction without residual deficits Plan: Stable (3) Diabetes mellitus type 2, controlled: Code(s): E11.9 - Type 2 diabetes mellitus without complications Plan: A1c?6.0%.??Goal?is?less?than?7.0% Continue?metformin Continue?diabetic?diet (4) Fatigue: Code(s): R53.83 - Other fatigue Plan: Patient?notes?increase?in?fatigue?and?excessive?daytime?fatigue/sleepiness Will?check?lab Referred?for?sleep?medicine?evaluation (5) Sleep apnea: Code(s): G47.30 - Sleep apnea, unspecified Plan: As?above,?referred?to?Sleep?Medicine (6) Early satiety: Code(s): R68.81 - Early satiety Plan: Patient?notes?early?satiety Check?labs,?chest?x-ray?and?refer?to?Gastroenterology Orders: Orders AMB Hemoglobin A1c Today E11.9 - Type 2 diabetes mellitus without complications XR chest 2V Today R68.81 - Early satiety TSH reflex Free T4 Today R68.81 - Early satiety, Z00.00 - Encounter for general adult medical examination without abnormal findings Comprehensive [place]. Panel Fast Today R68.81 - Early satiety, Z00.00 - Encounter for general adult medical examination without abnormal findings Complete Blood Count Auto Diff Today R68.81 - Early satiety, Z00.00 - Encounter for general adult medical examination without abnormal findings Lipid Panel Today E78.5 - Hyperlipidemia, unspecified, Z00.00 - Encounter for general adult medical examination without abnormal findings Referrals Gastroenterology Referral R68.81 - Early satiety Coding Level of Care Code Est Pt Level 4 (88010) Diagnoses Hyperlipidemia E78.5 History of TIA (transient ischemic attack) Z86.73 Diabetes mellitus type 2, controlled E11.9 Fatigue R53.83 Sleep apnea G47.30 Early satiety R68.81
== END 2023-12-19 10:26 | disposition home or self-care (01) ==
PROVIDERS: PCP Family Medicine; Visit Provider Family Medicine
DX: E78.5 Hyperlipidemia, unspecified (principal); Z86.73 Personal history of transient ischemic attack (TIA), and cerebral infarction without residual deficits; E11.9 Type 2 diabetes mellitus without complications; R53.83 Other fatigue; G47.30 Sleep apnea, unspecified; R68.81 Early satiety
CPT/HCPCS: 83036; 99214

== ENCOUNTER 2024-03-04 10:00 | Outpatient (REF) | payer MEDICARE, SELFPAY ==
--- NOTE | ~2024-03-04 | XR_ITS ---
EXAMINATION: XR CHEST CLINICAL INFORMATION: Early satiety. COMPARISON: 02/03/2021 TECHNIQUE: 2 views of the chest were obtained. FINDINGS: There is no gross pneumothorax. Heart size is normal. S-shaped thoracolumbar scoliosis. No pleural effusion. No new focal consolidation to suggest pneumonia. Lower spinal fusion hardware and mid thoracic spinal stimulator leads again noted, unchanged. Mild mid and lower thoracic spine spondylosis. XR/XR chest 2V IMPRESSION: No pleural effusion. No new focal consolidation to suggest pneumonia.
== END 2024-03-04 10:01 | disposition home or self-care (01) ==
LOC: HO.XRAY 10:00
PROVIDERS: PCP Family Medicine; Visit Provider Family Medicine
DX: R68.81 Early satiety (principal)
CPT/HCPCS: 71046

== ENCOUNTER 2024-03-18 09:59 | Outpatient (REF) | payer MEDICARE, SELFPAY ==
[2024-03-18 11:29] LABS: MANUAL DIFF FLAG NO
[2024-03-18 11:47] LABS: Basophils Percent Auto 0.6 % (0-2); Eosinophils Absolute Auto 0.2 X10*3/uL (0.0-0.4); Eosinophils Percent Auto 4.7 % (0-4); Hemoglobin 12.3 g/dl (12.0-16.0); Imm Gran Abs Auto 0.02 X10*3/uL (0.00-0.03); Imm Gran Pct Auto 0.4 % (0.0-0.4); Lymphocytes Absolute Auto 1.1 X10*3/uL (1.2-4.9); Lymphocytes Percent Auto 23.4 % (20-40); Mean Corpuscular HGB Conc 33.2 g/dl (31.0-35.0); Mean Corpuscular Hemoglobin 29.2 pg (27.0-33.0); Mean Corpuscular Volume 87.9 fL (80.0-98.0); Mean Platelet Volume 10.3 fL (9.4-12.3); Monocytes Absolute Auto 0.7 X10*3/uL (0.1-1.2); Monocytes Percent Auto 14.5 % (2-11); Neutrophils Absolute Auto 2.7 x10*3/uL (2.0-8.3); Neutrophils Percent Auto 56.4 % (45-73); Platelet Count 258 X10*3/uL (160-400); Red Blood Count 4.21 X10*6/uL (4.20-5.50); Red Cell Distribution Width 13.8 % (11.0-16.0); White Blood Count 4.7 X10*3/uL (4.8-10.8)
[2024-03-18 12:36] LABS: Alanine Aminotransferase 12 U/L (0-31); Albumin Level 3.9 g/dL (3.5-5.0); Alkaline Phosphatase 61 U/L (39-117); Anion Gap 12 (12-20); Aspartate Amino Transferase 15 U/L (5-31); Bilirubin Total 0.7 mg/dL (0.0-1.0); Blood Urea Nitrogen 23 mg/dL (9-16); Calcium 9.7 mg/dL (8.4-10.2); Carbon Dioxide 25 mmol/L (22-29); Chloride 106 mmol/L (96-108); Cholesterol 148 mg/dL (<200); Estimated Glomerular Filt Rate > 60; Glucose Fasting 101 mg/dL (60-99); HDL Cholesterol 59 mg/dL (>40); LDL Cholesterol Calculated 73 mg/dL (<100); Potassium 4.4 mmol/L (3.3-5.1); Sodium 139 mmol/L (135-145); TSH reflex Free T4 1.43 uIU/mL (0.32-4.0); Total Protein 7.1 g/dL (6.5-8.0); Triglycerides 83 mg/dL (<150)
== END 2024-03-18 10:00 | disposition home or self-care (01) ==
LOC: HO.WFDLDS 09:59
PROVIDERS: Visit Provider Family Medicine
DX: Z00.00 Encounter for general adult medical examination without abnormal findings (principal); R68.81 Early satiety; E78.5 Hyperlipidemia, unspecified
CPT/HCPCS: 36415; 80053; 80061; 84443; 85025

== ENCOUNTER 2024-03-19 10:44 | Outpatient (AMB) | payer OTHER, SELFPAY ==
--- NOTE | 2024-03-19 10:53 | A.OFFPC_ITS ---
Vital Signs 03/19/24 10:56 Height 5 ft Weight 146 lb 8 oz BMI 28.6 BP 112/62 Blood Pressure Location Lt brachial Position Sitting Pulse 68 Pulse Source Pulse Oximeter Pulse Oximetry (%) 97 Oxygen Delivery Method Room Air Intake Visit Reasons: f/u diabetes Intake Note: Patient is here to follow up on her diabetes today. Allergies fentanyl [FENTANYL] Allergy (Intermediate, Verified 03/19/24 10:57) HIVES morphine [MORPHINE] Allergy (Intermediate, Verified 03/19/24 10:57) HIVES nickel [NICKEL] Allergy (Intermediate, Verified 03/19/24 10:57) RASH NSAIDS (Non-Steroidal Anti-Inflamma [NSAIDS (NON-STEROIDAL ANTI-INFLAMMA] Allergy (Intermediate, Verified 03/19/24 10:57) HIVES oxycodone [OXYCODONE] Allergy (Intermediate, Verified 03/19/24 10:57) HIVES ranitidine [Zantac] Allergy (Intermediate, Verified 03/19/24 10:57) rash Seasonal Allergies Allergy (Intermediate, Verified 03/19/24 10:57) Itchy Eyes silver [From TEGADERM AG MESH] Allergy (Intermediate, Verified 03/19/24 10:57) HIVES prednisone Adverse Reaction (Intermediate, Verified 03/19/24 10:57) RAsh OxyContin Allergy (Intermediate, Uncoded 03/19/24 10:57) RAsh red dye for scans Allergy (Intermediate, Uncoded 03/19/24 10:57) RAsh Medication List - Last Reconciled 03/19/24 by Jack Calderón MD blood sugar diagnostic ([employer] Verio test strips) As directed blood-glucose meter (Rare[employer]teTouch Verio Flex Start kit) Daily, As directed. 999 days budesonide-formoterol 160-4.5 mcg/actuation 2 puffs PO BID cetirizine 10 mg PO DAILY PRN diclofenac sodium 1% 2 grams topical QID estradiol (Estring) 1 vag ring vaginal [id number] ezetimibe (Zetia) 10 mg PO DAILY 90 days fluoxetine 40 mg (2 x 20 mg) PO DAILY fluticasone propionate 50 mcg/actuation 1 spray intranasal DAILY fremanezumab-vfrm (Ajovy Syringe) mg subcut Q4W gabapentin 600 mg PO TID PRN ipratropium bromide 17 mcg/actuation 1 inh inhalation BID lancets ([employer]ip[employer]ch [employer] Lancets) To test blood sugar As directed, 90 days metformin 500 mg PO DAILY omeprazole 40 mg PO DAILY 90 days sumatriptan succinate 100 mg PO DAILY PRN triamcinolone acetonide 0.1% 1 appl topical BID Tobacco use date assessed: 12/19/23 Fall risk assessment: No Falls in past year Last assessed Fall Risk: 03/19/24 Dental Screening Dental Screen Date: 12/19/23 HPI f/u diabetes HPI Details 68 y/o female presents to f/u diabetes, hyperlipidemia, fatigue and early satiety. Last A1c 12/19/23 6.0%. A1c today 03/19/24 5.9%. Labs were drawn 03/18/24. Reviewed labs with pt. Triglycerides 83. TC 148. LDL 73. HDL 59. Pt has gained weight since November - 134 lbs to 146 lbs. PFSH Medical History Arthritis Back pain Diabetes GERD (gastroesophageal reflux disease) TIA (transient ischemic attack) Hx of migraine headaches Hx of sarcoidosis Asthma Essential hypertension Surgical History History of surgery History of fusion of cervical spine History of lumbar fusion History of total replacement of both hip joints H/O colonoscopy Family History Father Colon cancer Diabetes mellitus CVD (cardiovascular disease) COPD (chronic obstructive pulmonary disease) Smoker Mother Lung cancer Son Diabetes mellitus ETOH abuse Depression Social History Housing: Apartment Are you a primary critical care rn to a significant other at home: No Do you presently have visiting nurse or other home services: No Alcohol intake: never Patient Tobacco Use Status: Never used Tobacco e-Cigarette/Vaping Use: Never Used Second Hand Smoke Exposure: Yes service: No Current occupational status: retired Current occupational exposures/hazards: No Cognitive needs: No Hearing needs: No Vision needs: No (Glasses) Questionnaire PHQ-9 Over the last 2 weeks, how often have you been bothered by any of the following problems? 1. Little interest or pleasure in doing things: not at all 2. Feeling down, depressed, or hopeless: not at all 3. Trouble falling or staying asleep, or sleeping too much: not at all 4. Feeling tired or having little energy: not at all 5. Poor appetite or overeating: not at all 6. Feeling bad about yourself - or that you are a failure or have let yourself or your family down: not at all 7. Trouble concentrating on things, such as reading the newspaper or watching television: not at all 8. Moving or speaking so slowly that other people could have noticed. Or the opposite - being so fidgety or restless that you have been moving around a lot more than usual: not at all 9. Thoughts that you would be better off or of hurting yourself in some way: not at all Total score: 0 Depression Screening Interpretation: Negative Depression Screening Done: Yes Source: Developed by Drs. Zaki Shukla, Vanessa Zazueta, Fabio Rosario and colleagues, with an educational katharine from [employer]. Thrive Questionnaire Date Thrive assessed: 03/19/24 I am a: Patient What is your living situation today?: I have a steady place to live Within the past 12 months, did the food you bought not last and you didn't have the money to get more?: Never true Within the past 12 months, did you worry whether your food would run out before you got money to buy more?: Never true Do you have trouble paying for medicines?: No Do you have trouble getting transportation to medical appointments?: No Do you have trouble paying your heating and electricity bill?: No Do you have trouble taking care of your child, family member or friend?: No Do you have trouble with day-to-day activities such as bathing, preparing meals, shopping, managing finances, etc.?: No Are you currently unemployed and looking for a job?: No Are you interested in more education?: No THRIVE Score: 0 AUDIT C Alcohol Use Questionnaire (AUDIT-C) 1. How often do you have a drink containing alcohol?: Monthly or less 2. How many drinks containing alcohol do you have on a typical day when you are drinking?: 1 or 2 3. How often do you have six or more drinks on one occasion?: Never Total Score: 1 REGINA-7 AMB Questionnaire REGINA-7 Date REGINA - 7 assessed: 03/19/24 Feeling nervous, anxious, or on edge: 0 = Not at all Not being able to stop or control worryin = Not at all Worrying too much about different things: 0 = Not at all Trouble relaxin = Not at all Being so restless that it is hard to sit still: 0 = Not at all Becoming easily annoyed or irritable: 0 = Not at all Feeling afraid as if something awful might happen: 0 = Not at all Total REGINA-7 score (0-4 normal; 5-9 mild; 10-14 moderate; 15-21 severe): 0 Source: Developed by Drs. Zaki Shukla, Vanessa Zazueta, Fabio Rosario and colleagues, with an educational katharine from [employer]. REGINA-7 Assessment Billing REGINA-7 Assessment Tool: REGINA-7 Assessment 31274 Physical exam (Primary Care) Vital Signs: Last Vital Signs Pulse 68 03/19/24 10:56 BP 112/62 03/19/24 10:56 Pulse Ox 97 03/19/24 10:56 Oxygen Delivery Method Room Air 03/19/24 10:56 BMI result Body Mass Index 28.6 Tobacco/Smoking Status: Tobacco use Status Tobacco use date assessed 12/19/23 03/19/24 10:55 Patient Tobacco Use Status Never used Tobacco 03/19/24 10:55 e-Cigarette/Vaping Use Never Used 03/19/24 10:55 PHQ-9: PHQ-9 Score PHQ-9: Total score 0 03/19/24 11:32 Depression Screening Interpretation: Negative Thrive Assessment: Date of Thrive Assessment Date Thrive assessed 03/19/24 03/19/24 11:05 Results AMB Hemoglobin A1c AMB Hemoglobin A1c 5.9 % Last Edit by Lois Kimball CMA on 03/19/24 11:16 Results Reviewed Results Reviewed: Laboratory Last Values Hgb A1c (Clinic) 5.9 % (4.0-6.0) 03/19/24 11:12 Assessment and Plan Assessment & Plan (1) Diabetes mellitus type 2, controlled: Code(s): E11.9 - Type 2 diabetes mellitus without complications Plan: A1c?5.9%?on?metformin Goal?is?less?than?7.0%.??Good?control Continue?current?medication (2) Hyperlipidemia: Code(s): E78.5 - Hyperlipidemia, unspecified Plan: Lipids?showed?good?control?on?Zetia Continue?current?medication (3) Fatigue: Code(s): R53.83 - Other fatigue Plan: Patient?had?issues?with?early?satiety?and?fatigue Also?history?of?sarcoid?and?right?neck?mass. Rechecking?ultrasound?of?right?neck?mass (4) Early satiety: Code(s): R68.81 - Early satiety Plan: Early?satiety?which ?has?resolved.??Patient?had?lost?weight?but?has?gained?this?back Chest?x-ray?negative She?has?an?appointment?with?her?cigarette paper tester?this?coming?month (5) Lump on neck: Code(s): R22.1 - Localized swelling, mass and lump, neck Plan: Right?lateral?neck?mass?which?has?been?seen?previously Patient?has?history?of?sarcoid Checking?ultrasound?again?and?may?need?additional?imaging?or?referral?back?to?he r?personnel and payroll technician.??Or?referral?to?ENT Orders: Orders AMB Hemoglobin A1c Today Z13.9 - Encounter for screening, unspecified US soft tiss head and/or neck Today D86.9 - Sarcoidosis, unspecified, R22.1 - Localized swelling, mass and lump, neck Coding Level of Care Code Est Pt Level 4 (39438) Diagnoses Diabetes mellitus type 2, controlled E11.9 Hyperlipidemia E78.5 Fatigue R53.83 Early satiety R68.81 Lump on neck R22.1 Additional Codes REGINA-7 Assessment Billing - REGINA-7 Assessment Tool: REGINA-7 Assessment [id number] ([id number])
[2024-03-19 10:56] VITALS: BP 112/62; PULSE 68; O2SAT 97; BMI 28.6
== END 2024-03-19 12:03 | disposition home or self-care (01) ==
PROVIDERS: PCP Family Medicine; Visit Provider Family Medicine
DX: E11.9 Type 2 diabetes mellitus without complications (principal); R22.1 Localized swelling, mass and lump, neck; E78.5 Hyperlipidemia, unspecified; R53.83 Other fatigue; R68.81 Early satiety
CPT/HCPCS: 83036; 99214

== ENCOUNTER 2024-03-25 12:50 | Outpatient (REF) | payer MEDICARE, SELFPAY ==
--- NOTE | ~2024-03-25 | US_ITS ---
EXAMINATION: US SOFT TISSUE HEAD/NECK CLINICAL INFORMATION: Localized swelling, mass or lump, neck. Follow up prior ultrasound right neck mass. COMPARISON: CT soft tissue neck with contrast 12/20/2022. Ultrasound soft tissue neck 09/15/2022 and 06/14/2022. TECHNIQUE: Linear transducer grayscale and color Doppler examination of the right neck level Ib lump. FINDINGS: Targeted evaluation of the right neck in the region of concern shows a level 1B lymph node measuring 1.9 x 0.8 x 1.3 cm,? Slit-like hilum, not significantly changed compared to ultrasound of 09/15/2022. There is a hypoechoic/complex cystic area in the submandibular gland with irregular borders,? Lymph node versus granuloma (patient has history of sarcoidosis), measures 0.9 x 0.6 x 1.1 cm. A similar finding without the cystic component was seen on ultrasound of 09/15/2022. US/US soft tiss head and/or neck IMPRESSION: 1. No significant change in right level 1B lymph node. 2. Hypoechoic/complex cystic area in the right submandibular gland. Lymph node versus granuloma (patient has history of sarcoidosis) measures 0.9 x 0.6 x 1.1 cm. A similar finding without the cystic component was seen on ultrasound of 09/15/2022. 3. If clinically indicated, further evaluation of the neck soft tissues and nodes may be performed with CT soft tissue neck with intravenous contrast.
== END 2024-03-25 12:51 | disposition home or self-care (01) ==
LOC: HO.US 12:50
PROVIDERS: PCP Family Medicine; Visit Provider Family Medicine
DX: R22.1 Localized swelling, mass and lump, neck (principal); D86.9 Sarcoidosis, unspecified
CPT/HCPCS: 76536

== ENCOUNTER 2024-05-12 08:40 | Outpatient (AMB) | payer MEDICARE, SELFPAY ==
--- NOTE | 2024-05-12 08:46 | A.OFFPC_ITS ---
Vital Signs 05/12/24 08:48 Height 5 ft Weight 145 lb 4 oz BMI 28.4 BP 90/60 Blood Pressure Location Lt brachial Position Sitting Respiration 16 Pulse 73 Pulse Source Pulse Oximeter Temp 98 F Temp Source Tympanic Pulse Oximetry (%) 97 Oxygen Delivery Method Room Air Intake Visit Reasons: follow up neck xray Intake Note: follow up on neck x-ray Allergies fentanyl [FENTANYL] Allergy (Intermediate, Verified 05/12/24 08:46) HIVES morphine [MORPHINE] Allergy (Intermediate, Verified 05/12/24 08:46) HIVES nickel [NICKEL] Allergy (Intermediate, Verified 05/12/24 08:46) RASH NSAIDS (Non-Steroidal Anti-Inflamma [NSAIDS (NON-STEROIDAL ANTI-INFLAMMA] All ergy (Intermediate, Verified 05/12/24 08:46) HIVES oxycodone [OXYCODONE] Allergy (Intermediate, Verified 05/12/24 08:46) HIVES ranitidine [Zantac] Allergy (Intermediate, Verified 05/12/24 08:46) rash Seasonal Allergies Allergy (Intermediate, Verified 05/12/24 08:46) Itchy Eyes silver [From TEGADERM AG MESH] Allergy (Intermediate, Verified 05/12/24 08:46) HIVES prednisone Adverse Reaction (Intermediate, Verified 05/12/24 08:46) RAsh OxyContin Allergy (Intermediate, Uncoded 03/19/24 10:57) RAsh red dye for scans Allergy (Intermediate, Uncoded 03/19/24 10:57) RAsh Tobacco use date assessed: 12/19/23 Dental Screening Dental Screen Date: 12/19/23 HPI follow up neck xray HPI Details 68 y/o female presents today to f/u R ne ck lump and ultrasound. Head/neck ultrasound 03/25/24 shows: 1. No significant change in right level 1B lymph node. 2. Hypoechoic/complex cystic area in th e right submandibular gland. Lymph node versus granuloma (patient has history of sarcoidosis) measures 0.9 x 0.6 x 1.1 cm. A similar finding without the cystic component was seen on ultrasound of 09/15/2022. Pt notes R neck lump bothers her occasionally. HPI Comments History of Present Illness Details Documentation assistance for Jack Calderón MD, was provided by Flo Fong, Storehouse Clerk on 05/12/2024 at 9:32 AM EST. Chang, Dr. Calderón, have read, observed, and verified documentation. [facility] Medical History Arthritis Back pain Diabetes GERD (gastroesophageal reflux disease) TIA (transient ischemic attack) Hx of migraine headaches Hx of sarcoidosis Asthma Essential hypertension Surgical History History of surgery History of fusion of cervical spine History of lumbar fusion History of total replacement of both hip joints H/O colonoscopy Family History Father Colon cancer Diabetes mellitus CVD (cardiovascular disease) COPD (chronic obstructive pulmonary disease) Smoker Mother Lung cancer Son Diabetes mellitus ETOH abuse Depression Social History Housing: Apartment Are you a primary hospice care transitions coordinator to a significant other at home: No Do you presently have visiting nurse or other home services: No Alcohol intake: never Patient Tobacco Use Status: Never used Tobacco e-Cigarette/Vaping Use: Never Used Second Hand Smoke Exposure: Yes service: No Current occupational status: retired Current occupational exposures/hazards: No Cognitive needs: No Hearing needs: No Vision needs: No (Glasses) Questionnaire Thrive Questionnaire Date Thrive assessed: 03/19/24 REGINA-7 AMB Questionnaire REGINA-7 Date REGINA - 7 assessed: 03/19/24 Source: Developed by Drs. Zaki Shukla, Vanessa Zazueta, Fabio Rosario and colleagues, with an educational katharine from [employer]. Review of Systems Const Denies chills, Denies fatigue, Denies fever(s), Denies headache(s) and Denies weakness ENT Denies dizziness and Denies headache(s) Card Denies dyspnea Resp Denies cough, Denies dyspnea, Denies wheezing and Denies other (shortness of breath) Musc Denies numbness and Denies tingling Neuro Denies dizziness, Denies headache(s), Denies numbness, Denies tingling and Denies weakness Psych Denies anxiety and Denies depression Endo Denies fatigue Aller/Immun Denies wheezing Physical exam (Primary Care) Vital Signs: Last Vital Signs Temp 98 F 05/12/24 08:48 Pulse 73 05/12/24 08:48 Resp 16 05/12/24 08:48 BP 90/60 05/12/24 08:48 Pulse Ox 97 05/12/24 08:48 Oxygen Delivery Method Room Air 05/12/24 08:48 BMI result Body Mass Index 28.4 Tobacco/Smoking Status: Tobacco use Status Tobacco use date assessed 12/19/23 05/12/24 08:52 Patient Tobacco Use Status Never used Tobacco 05/12/24 08:52 e-Cigarette/Vaping Use Never Used 05/12/24 08:52 Thrive Assessment: Date of Thrive Assessment Date Thrive assessed 03/19/24 05/12/24 08:52 Const General: well developed; No acute distress Nutritional Appearance: well nourished Orientation/consciousness: patient oriented x3 HENMT Head: Yes normocephalic and Yes atraumatic Eyes General: appearance normal, both eyes and all related structures Pupils: Equal, round and reactive pupils present EOM: EOMs intact bilaterally Resp Effort & Inspection: normal respiratory effort Auscultation: clear to auscultation bilaterally Cardio Rate: regular rate Rhythm: regular rhythm Heart sounds: S1 normal heart sound present, S2 normal heart sound present, no gallops, no murmurs and no rubs Neuro General: patient oriented x3 and gait normal Cranial nerves: Yes Equal, round and reactive pupils present Psych Affect: normal affect Assessment and Plan Assessment & Plan (1) Lump on neck: Code(s): R22.1 - Localized swelling, mass and lump, neck Plan: Small?lymph?node?palpated?at?right?side?of?her?neck?and?patient?has?history?sarc oidosis. She?is?followed?by?ENT,?Dr. Schofield Ultrasound?shows?old?stable?lymph?node?and?also?lymph?node?which?has?been?seen?b efore?but?has?new?cystic?property?to?it Referred?back?to?ENT (2) Sarcoidosis: Code(s): D86.9 - Sarcoidosis, unspecified Plan: As?above Currently?appears?stable.??Breathing?easily. Orders: Referrals Ear/Nose/Throat Referral D86.9 - Sarcoidosis, unspecified, R59.0 - Localized enlarged lymph nodes Coding Level of Care Code Est Pt Level 3 (80385) Diagnoses Lump on neck R22.1 Sarcoidosis D86.9
[2024-05-12 08:48] VITALS: BP 90/60; PULSE 73; RESP 16; TEMP 36.6; O2SAT 97; BMI 28.4
== END 2024-05-12 09:39 | disposition home or self-care (01) ==
PROVIDERS: PCP Family Medicine; Visit Provider Family Medicine
DX: R22.1 Localized swelling, mass and lump, neck (principal); D86.9 Sarcoidosis, unspecified
CPT/HCPCS: 99213

== ENCOUNTER 2024-06-12 09:30 | Outpatient (REF) | payer MEDICARE, SELFPAY ==
[2024-06-12 11:16] LABS: MANUAL DIFF FLAG NO
[2024-06-12 11:25] LABS: Appearance Urine Cloudy; Color Urine Yellow; Glucose Urine UA Negative (Negative); Leukocyte Esterase Urine Negative (Negative); Nitrite Urine Negative (Negative); Urine Blood Negative (Negative); Urine Ketones Negative (Negative); Urine Protein Negative (Neg-Trace)
[2024-06-12 11:50] LABS: Basophils Percent Auto 0.7 % (0-2); Eosinophils Absolute Auto 0.1 X10*3/uL (0.0-0.4); Eosinophils Percent Auto 2.9 % (0-4); Hematocrit 37.4 % (37.0-47.0); Hemoglobin 12.3 g/dl (12.0-16.0); Imm Gran Abs Auto 0.02 X10*3/uL (0.00-0.03); Imm Gran Pct Auto 0.4 % (0.0-0.4); Lymphocytes Absolute Auto 0.9 X10*3/uL (1.2-4.9); Lymphocytes Percent Auto 20.1 % (20-40); Mean Corpuscular HGB Conc 32.9 g/dl (31.0-35.0); Mean Corpuscular Hemoglobin 28.9 pg (27.0-33.0); Mean Platelet Volume 10.5 fL (9.4-12.3); Monocytes Absolute Auto 0.5 X10*3/uL (0.1-1.2); Monocytes Percent Auto 11.9 % (2-11); Neutrophils Absolute Auto 2.9 x10*3/uL (2.0-8.3); Platelet Count 268 X10*3/uL (160-400); Red Blood Count 4.25 X10*6/uL (4.20-5.50); Red Cell Distribution Width 13.2 % (11.0-16.0); White Blood Count 4.5 X10*3/uL (4.8-10.8)
[2024-06-12 12:08] LABS: Alanine Aminotransferase 11 U/L (0-31); Albumin Level 3.8 g/dL (3.5-5.0); Alkaline Phosphatase 54 U/L (39-117); Anion Gap 12 (12-20); Aspartate Amino Transferase 14 U/L (5-31); Bilirubin Total 0.5 mg/dL (0.0-1.0); Blood Urea Nitrogen 16 mg/dL (9-16); Calcium 9.4 mg/dL (8.4-10.2); Carbon Dioxide 26 mmol/L (22-29); Chloride 107 mmol/L (96-108); Estimated Glomerular Filt Rate > 60; Glucose Fasting 100 mg/dL (60-99); Potassium 4.2 mmol/L (3.3-5.1); Sodium 141 mmol/L (135-145); Total Protein 6.9 g/dL (6.5-8.0)
[2024-06-12 12:15] LABS: TSH reflex Free T4 1.58 uIU/mL (0.32-4.0)
[2024-06-12 12:23] LABS: Creatinine Urine 93.66 mg/dL; Microalbum/Creatinine Ratio Ur 5.3 ug/mg cr (<30)
== END 2024-06-12 09:31 | disposition home or self-care (01) ==
LOC: HO.WFDLDS 09:30
PROVIDERS: Visit Provider Family Medicine
DX: Z00.00 Encounter for general adult medical examination without abnormal findings (principal); I10 Essential (primary) hypertension
CPT/HCPCS: 36415; 80053; 81003; 82043; 82570; 84443; 85025

== ENCOUNTER 2024-06-17 15:48 | Outpatient (AMB) | payer MEDICARE, SELFPAY ==
--- NOTE | 2024-06-17 15:57 | A.OFFPC_ITS ---
Vital Signs 06/17/24 16:07 Height 5 ft Weight 147 lb BMI 28.7 BP 120/60 Blood Pressure Location Lt brachial Position Sitting Respiration 12 Pulse 79 Pulse Source Pulse Oximeter Temp 96.2 F L Temp Source Tympanic Pulse Oximetry (%) 98 Oxygen Delivery Method Room Air Intake Visit Reasons: CPE with f/u labs and health maint Intake Note: CPE Allergies fentanyl [FENTANYL] Allergy (Intermediate, Verified 06/17/24 15:59) HIVES morphine [MORPHINE] Allergy (Intermediate, Verified 06/17/24 15:59) HIVES nickel [NICKEL] Allergy (Intermediate, Verified 06/17/24 15:59) RASH NSAIDS (Non-Steroidal Anti-Inflamma [NSAIDS (NON-STEROIDAL ANTI-INFLAMMA] Allergy (Intermediate, Verified 06/17/24 15:59) HIVES oxycodone [OXYCODONE] Allergy (Intermediate, Verified 06/17/24 15:59) HIVES ranitidine [Zantac] Allergy (Intermediate, Verified 06/17/24 15:59) rash Seasonal Allergies Allergy (Intermediate, Verified 06/17/24 15:59) Itchy Eyes silver [From TEGADERM AG MESH] Allergy (Intermediate, Verified 06/17/24 15:59) HIVES prednisone Adverse Reaction (Intermediate, Verified 06/17/24 15:59) RAsh OxyContin Allergy (Intermediate, Uncoded 03/19/24 10:57) RAsh red dye for scans Allergy (Intermediate, Uncoded 03/19/24 10:57) RAsh Medication List - Last Reconciled 06/17/24 by Jack Calderón MD atogepant (Qulipta) 60 mg PO DAILY blood sugar diagnostic (OneTouch Verio test strips) As directed blood-glucose meter (OneTouch Verio Flex Start kit) Daily, As directed. 999 days budesonide-formoterol 160-4.5 mcg/actuation 2 puffs PO BID cetirizine 10 mg PO DAILY PRN diclofenac sodium 1% 2 grams topical QID estradiol (Estring) 1 vag ring vaginal [id number] ezetimibe (Zetia) 10 mg PO DAILY 90 days fluoxetine 40 mg (2 x 20 mg) PO DAILY fluticasone propionate 50 mcg/actuation 1 spray intranasal DAILY fremanezumab-vfrm (Ajovy Syringe) mg subcut Q4W gabapentin 600 mg PO TID 90 days ipratropium bromide 17 mcg/actuation 1 inh inhalation BID lancets ([employer] Delica Lancets) To test blood sugar As directed, 90 days metformin 500 mg PO DAILY omeprazole 40 mg PO DAILY 90 days rizatriptan take 1 tab at onset of headache; if no relief may repeat 1 tab after at least 2 hrs; max = 3 tabs/24 hr PO sumatriptan succinate 100 mg PO DAILY PRN triamcinolone acetonide 0.1% 1 appl topical BID Tobacco use date assessed: 12/19/23 Dental Screening Dental Screen Date: 12/19/23 HPI CPE with f/u labs and health maint HPI Details 68 y/o female presents for a CPE with f/ u labs and health maintenance. Last A1c 03/19/24 5.9%. She is on metformin 500mg daily. A1c today 06/17/24 6.0%. Labs drawn 06/12/24. Reviewed labs with pt. Last lipid panel drawn 03/18/24 - Triglycerides 83. TC 148. LDL 73. HDL 59. TSH 1.58. Cervical lymphadenopathy. Had referred her to ENT for a cyst - pt notes difficulties in scheduling but she notes they plan to biopsy it. Pt reports anxiety/depression. She does report life stressors. [facility] Medical History Arthritis Back pain Diabetes GERD (gastroesophageal reflux disease) TIA (transient ischemic attack) Hx of migraine headaches Hx of sarcoidosis Asthma Essential hypertension Surgical History History of surgery History of fusion of cervical spine History of lumbar fusion History of total replacement of both hip joints H/O colonoscopy Family History Father Colon cancer Diabetes mellitus CVD (cardiovascular disease) COPD (chronic obstructive pulmonary disease) Smoker Mother Lung cancer Son Diabetes mellitus ETOH abuse Depression Social History (Updated 06/17/24 @ 16:02 by Aj Bosch MA) Housing: Apartment Are you a primary home care aide to a significant other at home: No Do you presently have visiting nurse or other home services: No Alcohol intake: never Patient Tobacco Use Status: Never used Tobacco e-Cigarette/Vaping Use: Never Used Second Hand Smoke Exposure: Yes service: No Current occupational status: retired Current occupational exposures/hazards: No Cognitive needs: No Hearing needs: No Vision needs: No (Glasses) Questionnaire PHQ-9 Over the last 2 weeks, how often have you been bothered by any of the following problems? 1. Little interest or pleasure in doing things: more than half the days 2. Feeling down, depressed, or hopeless: more than half the days 3. Trouble falling or staying asleep, or sleeping too much: more than half the days 4. Feeling tired or having little energy: nearly every day 5. Poor appetite or overeating: not at all 6. Feeling bad about yourself - or that you are a failure or have let yourself or your family down: more than half the days 7. Trouble concentrating on things, such as reading the newspaper or watching television: more than half the days 8. Moving or speaking so slowly that other people could have noticed. Or the opposite - being so fidgety or restless that you have been moving around a lot more than usual: more than half the days 9. Thoughts that you would be better off or of hurting yourself in some way: not at all Total score: 15 Depression Screening Interpretation: Positive Depression Screening Done: Yes 52665 - PHQ-9 Billing: Yes Source: Developed by Drs. Zaki Shukla, Vanessa Zazueta, Fabio Rosario and colleagues, with an educational katharine from [employer]. Thrive Questionnaire Date Thrive assessed: 06/17/24 I am a: Patient What is your living situation today?: I have a steady place to live Within the past 12 months, did the food you bought not last and you didn't have the money to get more?: Never true Within the past 12 months, did you worry whether your food would run out before you got money to buy more?: Never true Do you have trouble paying for medicines?: No Do you have trouble getting transportation to medical appointments?: No Do you have trouble paying your heating and electricity bill?: No Do you have trouble taking care of your child, family member or friend?: No Do you have trouble with day-to-day activities such as bathing, preparing meals, shopping, managing finances, etc.?: No Are you currently unemployed and looking for a job?: No Are you interested in more education?: No Currently or been in a relationship where the following occur: No concerns reported THRIVE Score: 0 AUDIT C Alcohol Use Questionnaire (AUDIT-C) 1. How often do you have a drink containing alcohol?: Never 3. How often do you have six or more drinks on one occasion?: Never Total Score: 0 REGINA-7 AMB Questionnaire REGINA-7 Date REGINA - 7 assessed: 06/17/24 Feeling nervous, anxious, or on edge: 2 = More than half the days Not being able to stop or control worryin = Several days Worrying too much about different things: 2 = More than half the days Trouble relaxin = More than half the days Being so restless that it is hard to sit still: 3 = Nearly every day Becoming easily annoyed or irritable: 2 = More than half the days Feeling afraid as if something awful might happen: 0 = Not at all Total REGINA-7 score (0-4 normal; 5-9 mild; 10-14 moderate; 15-21 severe): 12 Source: Developed by Drs. Zaki Shukla, Vanessa Zazueta, Fabio Rosario and colleagues, with an educational katharine from [employer]. REGINA-7 Assessment Billing REGINA-7 Assessment Tool: REGINA-7 Assessment 79248 ACT Questionnaire In the past 4 weeks, how much of the time did your asthma keep you from getting as much done at work, school or at home?: None of the time During the past 4 weeks, how often have you had shortness of breath?: 1-2 times a week During the past 4 weeks, how often did your asthma symptoms wake you up at night or earlier than usual in the morning?: Not at all During the past 4 weeks, how often have you had to use your rescue inhaler or nebulizer medication?: Not at all How would you rate your asthma control during the past 4 weeks?: Well controlled ACT Interpretation: Positive Score: 23 Review of Systems Const Denies chills, Denies fatigue, Denies fever(s), Reports headache(s) and Denies weakness Eyes Denies change in vision ENT Denies dizziness, Reports headache(s), Denies hearing loss, Reports nasal congestion, Denies sinus pain, Denies sinus pressure and Denies sore throat Card Denies chest pain, Denies lightheadedness, Denies dyspnea and Denies other (palpitations) Resp Denies cough, Denies dyspnea and Denies wheezing GI Denies abdominal pain, Denies melena, Denies hematochezia, Denies change in bowel habits, Denies dyspepsia and Denies nausea Denies hematuria and Denies dysuria Musc Denies abnormal gait, Denies myalgias, Denies arthralgias, Denies numbness and Denies tingling Skin/Breast Denies rash, Denies unusual bruising and Denies wounds Neuro Denies abnormal gait, Denies dizziness, Reports headache(s), Denies memory loss, Denies numbness, Denies Sensory deficit (Neuro), Denies tingling and Denies weakness Psych Reports anxiety, Reports depression and Denies memory loss Endo Denies cold intolerance, Denies fatigue, Denies heat intolerance, Denies polydipsia and Denies polyuria Sai/Lymph Denies easy bleeding and Denies easy bruising Aller/Immun Denies wheezing Physical exam (Primary Care) Tobacco/Smoking Status: Tobacco use Status Tobacco use date assessed 12/19/23 05/12/24 08:52 Patient Tobacco Use Status Never used Tobacco 06/17/24 16:02 e-Cigarette/Vaping Use Never Used 06/17/24 16:02 Depression Screening Interpretation: Positive Thrive Assessment: Date of Thrive Assessment Date Thrive assessed 03/19/24 05/12/24 08:52 Currently or been in a relationship where the following occur: No concerns reported Const General: no acute distress, well developed, alert and awake Nutritional Appearance: well nourished Orientation/consciousness: patient oriented x3 HENMT Head: Yes normocephalic and Yes atraumatic Ears: hearing grossly normal bilaterally and TM's normal bilaterally General nose exam: Normal external nose present and Normal nares present Mouth: Normal oral and palatal mucosa present and moist mucous membranes Teeth and gingiva: dentition normal Throat: Yes posterior oropharynx normal Eyes General: appearance normal, both eyes and all related structures Pupils: Equal, round and reactive pupils present and Pupil accommodation reflex normal EOM: EOMs intact bilaterally Neck Neck: Yes normal visual inspection, Yes no lymphadenopathy and Yes trachea midline Thyroid: Thyroid normal Carotids: no bruits Lymphatic: no lymphadenopathy noted Chest Chest palpation & inspection: normal inspection of the chest Resp Effort & Inspection: normal respiratory effort Auscultation: clear to auscultation bilaterally Cardio Rate: regular rate Rhythm: regular rhythm Heart sounds: S1 normal heart sound present, S2 normal heart sound present, no gallops, no murmurs and no rubs Bruits: no abdominal aortic bruits and no carotid bruits GI Palpation (GI): No Abdominal aortic bruit present, Soft to palpation, nontender, No hepatosplenomegaly present and No Rebound tenderness present Auscultation: normal bowel sounds General: Yes no CVA tenderness Back/Spine/Pelvis Back: no CVA tenderness Cervical Spine: cervical ROM normal and No Cervical spine tenderness Thoracic/Lumbar Spine: thoraco-lumbar ROM normal, No pain with thoraco-lumbar ROM, No thoracic spinal tenderness and No lumbar spinal tenderness Skin Lesions: no lesions Rashes: no rashes Trauma: no lacerations or abrasions Wounds: no wounds Nails: normal Neuro General: patient oriented x3 Cranial nerves: Yes Equal, round and reactive pupils present Cognition (Neuro): normal cognition Gait exam (Neuro): Normal gait present Motor exam (neuro): 5/5 motor strength present throughout Sensory Exam: No Sensory deficit (Neuro) Deep tendon reflexes (DTR's): Right patellar reflex intensity grade: 2+ and Left patellar reflex intensity grade: 2+ Extrem General: Yes normal to inspection and No edema Psych Appearance: grossly normal Affect: normal affect Attitude: cooperative Thought process: Normal thought process present Assessment and Plan Assessment & Plan (1) Cervical lymphadenopathy: Code(s): R59.0 - Localized enlarged lymph nodes Plan: Cervical?lymphadeno adwoa?and?changes?on?ultrasound?of?the?neck.??Referred?her?to?ENT?as?she?has?a?h istory?of?sarcoidosis She?has?an?appointment?with?her?ear?nose?and?throat?specialist.??She?says?she?is ?scheduled?for?another?biopsy. Asked?her?to?have?her?ENT?forward?me?notes?and?report. (2) Sarcoidosis: Code(s): D86.9 - Sarcoidosis, unspecified Plan: As?above (3) Headache: Code(s): R51.9 - Headache, unspecified Plan: Chronic?headaches Some?of?her?headaches?are?related?to?sinusitis.??She?appears?to?have?allergic?sh iners?and mild?erythema?at?eyelids. Continue?cetirizine?and?nasal?steroid Can?also?use?a?nasal?saline; not?within?30?minutes?of?nasal?steroid Can?also?use?allergy?eyedrops?such?as?[place] eyedrops (4) Diabetes mellitus type 2, controlled: Code(s): E11.9 - Type 2 diabetes mellitus without complications Plan: A1c?6.0%.??Good?control.??Goal?is?less?than?7.0% Continue?current?medication Continue?diabetic?diet Encouraged?exercise (5) Depression with anxiety: Code(s): F41.8 - Other specified anxiety disorders Plan: Patient?is?on?fluoxetine?40?mg?daily Will?trial?some?bupropion?as?adjunct (6) Nasal congestion: Code(s): R09.81 - Nasal congestion Plan: Appears?to?have?allergic?sinusitis - see?above (7) Screening for colon cancer: Code(s): Z12.11 - Encounter for screening for malignant neoplasm of colon Plan: Followed?by??Ad?who?recommends?a?follow-up?colonoscopy?in?2025 Up-to-date (8) Screening for cervical cancer: Code(s): Z12.4 - Encounter for screening for malignant neoplasm of cervix Plan: No?longer?has?cervix?or?uterus Still?gets?annual?exams?with?her?[facility] Follow-up?with?[facility] gynecology?as?recommended (9) Screening for breast cancer: Code(s): Z12.39 - Encounter for other screening for malignant neoplasm of breast Plan: Up-to-date?and?will?have?her?next?mammogram?in?September (10) Screening for osteoporosis: Code(s): Z13.820 - Encounter for screening for osteoporosis Plan: Last?bone?density?test?showed?osteopenia She?will?be?due?again?next?year?for?bone?density?test Encouraged?weight-bearing?exercise,?good?sources?of?calcium?and?vitamin-D (11) Adult general medical exam: Code(s): Z00.00 - Encounter for general adult medical examination without abnormal findings Plan: 68-year-old?female?presents?for?an?extended?exam Encouraged?healthy?diet?with?active?lifestyle?and?plenty?of?exercise Medications: New bupropion HCl 75 mg PO BID 30 days 60 tabs 1RF Coding Level of Care Code Est Pt Level 3 (49299) Est Pt Prev Care >65y(48303) Diagnoses Cervical lymphadenopathy R59.0 Sarcoidosis D86.9 Headache R51.9 Diabetes mellitus type 2, controlled E11.9 Depression with anxiety F41.8 Nasal congestion R09.81 Screening for colon cancer Z12.11 Screening for cervical cancer Z12.4 Screening for breast cancer Z12.39 Screening for osteoporosis Z13.820 Adult general medical exam Z00.00 Additional Codes REGINA-7 Assessment Billing - REGINA-7 Assessment Tool: REGINA-7 Assessment [id number] ([id number])
[2024-06-17 16:07] VITALS: BP 120/60; PULSE 79; RESP 12; TEMP 35.7; O2SAT 98; BMI 28.7
== END 2024-06-17 16:42 | disposition home or self-care (01) ==
PROVIDERS: PCP Family Medicine; Visit Provider Family Medicine
DX: Z00.00 Encounter for general adult medical examination without abnormal findings (principal); E11.9 Type 2 diabetes mellitus without complications; R59.0 Localized enlarged lymph nodes; D86.9 Sarcoidosis, unspecified; R51.9 Headache, unspecified; F41.8 Other specified anxiety disorders; R09.81 Nasal congestion; Z12.11 Encounter for screening for malignant neoplasm of colon; Z12.39 Encounter for other screening for malignant neoplasm of breast; Z13.820 Encounter for screening for osteoporosis

== ENCOUNTER → 2024-06-17 15:48 | Outpatient (BNVA) | payer MEDICARE, SELFPAY | PROVIDERS: PCP Family Medicine; Visit Provider Family Medicine | DX: R59.0 Localized enlarged lymph nodes (principal); D86.9 Sarcoidosis, unspecified; R51.9 Headache, unspecified; E11.9 Type 2 diabetes mellitus without complications; F41.8 Other specified anxiety disorders; R09.81 Nasal congestion | CPT/HCPCS: 96127; 99212 ==

== ENCOUNTER → 2024-08-18 10:51 | Outpatient (BNVA) | payer MEDICARE, SELFPAY | PROVIDERS: PCP Family Medicine; Visit Provider Nurse Practitioner Family ==

== ENCOUNTER 2024-08-23 11:45 | Emergency (ER) | payer MEDICARE, SELFPAY ==
--- NOTE | ~2024-08-23 | XR_ITS ---
EXAMINATION: XR CHEST CLINICAL INFORMATION: Cough. COMPARISON: Most recent chest radiograph dated 03/04/2024. TECHNIQUE: 2 views of the chest were obtained. FINDINGS: No airspace consolidation. No pleural effusion or pneumothorax. Stable cardiomediastinal silhouette. Thoracic spine implant in unchanged position. Partially visualized cervical spine orthopedic hardware. No acute osseous abnormality. XR/XR chest 2V IMPRESSION: No acute cardiopulmonary findings. Electronically signed by: Jorge Almeida MD 08/23/2024 12:40 PM [facility]
[2024-08-23 11:51] VITALS: BP 153/86; PULSE 67; RESP 18; TEMP 36.3; O2SAT 96; BMI 27.2
--- NOTE | 2024-08-23 11:51 | ED_ITS ---
HPI - General Adult General Chief complaint: Nausea/Vomiting/Diarrhea Stated complaint: feeling sick Time Seen by Provider: 08/23/24 12:16 Source: patient and old records reviewed Mode of arrival: ambulatory Limitations: no limitations History of Present Illness ED Provider: Aline HPI narrative: Patient is a 68-year-old female with history of sarcoidosis, DM, TIA, GERD, migraines, HTN, asthma presenting with complaint of nausea, dry heaves, fatigue, and 10# weight loss over past 2 weeks. Denies fevers. Denies vomiting or hematemesis. Denies hematochezia or melena. Reports decreased PO intake due to nausea. Prior to onset of nausea/fatigue she had URI symptoms. Denies abdominal pain or urinary symptoms. Denies dizziness, lightheadedness or syncope. MD complaint: nausea, fatigue Onset (ago): week(s) Treatments prior to arrival: none Related Data Home Medications ?Medication ?Instructions ?Recorded ?Confirmed budesonide-formoterol HFA 160 2 puff PO BID 07/09/20 06/17/24 mcg-4.5 mcg/actuation aerosol inhaler cetirizine 10 mg tablet 10 mg PO DAILY PRN Itching 07/09/20 06/17/24 fluticasone propionate 50 1 spray intranasal DAILY 07/09/20 06/17/24 mcg/actuation nasal spray,suspension ipratropium bromide 17 1 inh inhalation BID 07/09/20 06/17/24 mcg/actuation HFA aerosol inhaler sumatriptan succinate 100 mg tablet 100 mg PO DAILY PRN Migraine 07/09/20 06/17/24 Headache fremanezumab-vfrm 225 mg/1.5 mL mg subcut Q4W 09/02/21 06/17/24 subcutaneous syringe (Ajovy Syringe) estradiol 2 mg (7.5 mcg/24 hour) 1 vag ring vaginal [id number] 08/29/22 06/17/24 vaginal ring (Estring) atogepant 60 mg tablet (Qulipta) 60 mg PO DAILY 05/12/24 06/17/24 rizatriptan 10 mg tablet See Rx Instructions PO .COMPLEX 05/12/24 06/17/24 Previous Rx's ?Medication ?Instructions ?Recorded triamcinolone acetonide 0.1 % 1 appl topical BID #60 grams 01/31/23 topical ointment diclofenac sodium 1 % topical gel 2 g topical QID #100 grams 02/07/23 blood sugar diagnostic [facility]11/23 Verio test strips) lancets 33 gauge (OneTouch Delica #100 ea 02/11/23 Lancets) blood-glucose meter (InflaRxTouch #1 ea 02/16/23 Verio Flex Start kit) ezetimibe 10 mg tablet (Zetia) 10 mg PO DAILY 90 days #90 tabs 12/19/23 omeprazole 40 mg capsule,delayed 40 mg PO DAILY 90 days #90 caps 03/13/24 release fluoxetine 20 mg capsule 40 mg (2 x 20 mg) PO DAILY #180 03/14/24 caps gabapentin 600 mg tablet 600 mg PO TID 90 days #270 tabs 05/10/24 metformin 500 mg tablet 500 mg PO DAILY #90 tabs 06/24/24 bupropion HCl 150 mg 24 hr tablet, 150 mg PO QAM 90 days #90 tabs 07/16/24 extended release ondansetron 4 mg disintegrating 4 mg PO Q8H PRN nausea and 08/23/24 tablet vomiting #10 tabs Allergies Allergy/AdvReac Type Severity Reaction Status Date / Time fentanyl [FENTANYL] Allergy Intermediate HIVES Verified 08/23/24 11:55 morphine [MORPHINE] Allergy Intermediate HIVES Verified 08/23/24 11:55 nickel [NICKEL] Allergy Intermediate RASH Verified 08/23/24 11:55 NSAIDS (Non-Steroidal Allergy Intermediate HIVES Verified 08/23/24 11:55 Anti-Inflamma [NSAIDS (NON-STEROIDAL ANTI-INFLAMMA] oxycodone [OXYCODONE] Allergy Intermediate HIVES Verified 08/23/24 11:55 ranitidine [Zantac] Allergy Intermediate rash Verified 08/23/24 11:55 Seasonal Allergies Allergy Intermediate Itchy Eyes Verified 08/23/24 11:55 silver Allergy Intermediate HIVES Verified 08/23/24 11:55 [From TEGADERM AG MESH] prednisone AdvReac Intermediate RAsh Verified 08/23/24 11:55 OxyContin Allergy Intermediate RAsh Uncoded 03/19/24 10:57 red dye for scans Allergy Intermediate RAsh Uncoded 03/19/24 10:57 Review of Systems 2 Review of Systems: As per HPI Yes all other systems are reviewed and are negative Constitutional: Constitutional: Reports as per HPI [facility] Past Medical History Medical History Arthritis Back pain Diabetes GERD (gastroesophageal reflux disease) TIA (transient ischemic attack) Hx of migraine headaches Hx of sarcoidosis Asthma Essential hypertension Surgical History History of surgery History of fusion of cervical spine History of lumbar fusion History of total replacement of both hip joints H/O colonoscopy Family History Family History Father Colon cancer Diabetes mellitus CVD (cardiovascular disease) COPD (chronic obstructive pulmonary disease) Smoker Mother Lung cancer Son Diabetes mellitus ETOH abuse Depression Social History Social History (Updated 06/17/24 @ 16:02 by Aj Bosch [facility]) Housing: Apartment Are you a primary manager intensive care unit to a significant other at home: No Do you presently have visiting nurse or other home services: No Alcohol intake: never Patient Tobacco Use Status: Never used Tobacco Smoked in Last 30 Days: No e-Cigarette/Vaping Use: Never Used Second Hand Smoke Exposure: Yes Use of substances other than those prescribed or required for medical reasons: No Advance Directives: Yes Advance Directives Information Provided: No Advance Directives on File: No Do you have a plan to hurt others: No Plan service: No Current occupational status: retired Current occupational exposures/hazards: No Cognitive needs: No Hearing needs: No Vision needs: No (Glasses) Physical Exam ED Vital Signs: Vital Signs - 24 hr 08/23/24 11:51 08/23/24 12:28 08/23/24 14:22 Temperature 97.3 F 98.0 F 97.9 F Pulse Rate 67 69 68 Respiratory Rate 18 14 14 Blood Pressure 153/86 H 139/85 160/77 H Pulse Oximetry 96 97 97 Oxygen Delivery Method Room Air Room Air Room Air BMI result Body Mass Index 27.2 Vital signs have been reviewed and appear to be correct. Blood pressure normal. Heart rate normal. Respiratory rate normal. Temperature normal. Oxygen saturation normal. Const General: cooperative, healthy appearing and no acute distress Orientation/consciousness: oriented to person, oriented to place, oriented to time and patient oriented x3 Limitations: no limitations HENMT Head: Yes normocephalic and Yes atraumatic Ears: external ears normal General nose exam: Normal external nose present Face and sinus: Yes face symmetric Mouth: oropharynx normal and moist mucous membranes Throat: Yes uvula midline Eyes Pupils: Equal, round and reactive pupils present Neck Neck: Yes normal visual inspection and Yes supple Resp Effort & Inspection: normal respiratory effort and able to speak in complete sentences Auscultation: clear to auscultation bilaterally Cardio Rate: regular rate Rhythm: regular rhythm Heart sounds: S1 normal heart sound present and S2 normal heart sound present GI Palpation (GI): Soft to palpation and nontender Auscultation: normoactive bowel sounds General: Yes no CVA tenderness Back/Spine/Pelvis Back: no CVA tenderness Skin General skin exam: elasticity normal and turgor normal Neuro General: oriented to person, oriented to place, oriented to time, patient oriented x3, moves all extremities, no focal motor deficits and CN's II-XI intact bilaterally Cranial nerves: Yes Equal, round and reactive pupils present Cognition (Neuro): normal cognition Extrem General: Yes full ROM, Yes no pedal edema and Yes no calf tenderness Psych Mental Status: mental status grossly normal Affect: normal affect Thought process: Normal thought process present Course Course Course Narrative: This is a Rapid Medical Examination (RME) performed by Madeleine Tian PA-C in triage. Full HPI, ROS, assessment and treatment plan per primary provider in the Main ED. 68 yo female hx of HTN, asthma, sarcoidosis, TDM, migraines, GERD, TIA here for eval of feeling generally unwell x2 weeks. seen at this morning, sent here for further eval. states this began as a cold. reports cough, nausea w/ dry heaves, poor PO intake, and weight loss (approx 10 pounds in 2 weeks). denies cp, sob. Plan: labs, ekg, cxr, viral swabs Medical Decision Making Medical Decision Making MDM Narrative: Patient is a 68-year-old female with history of sarcoidosis, DM, TIA, GERD, migraines, HTN, asthma presenting with complaint of nausea, dry heaves, fatigue, and 10# weight loss over past 2 weeks. On exam patient is awake, A+Ox3, VS WNL, afebrile, normal neurological exam without focal deficits, physical exam findings as above. Given reported symptoms and physical exam findings, initial differential includes viral illness, pneumonia, dehydration, electrolyte abnormality, UTI. Physical exam reassuring. Labs unremarkable. Viral serology negative. Urinalysis is without evidence of infection. X-ray chest notable for no evidence of pneumonia. My interpretation is in agreement with the radiologist's interpretation. Results discussed with patient all questions answered. Advised patient to follow up with PCP as she may need further evaluation with Gastroenterology. Return precautions discussed at bedside. Will send prescription for Zofran. Patient verbalized understanding of and agreement with plan. Differential Diagnosis Differential Diagnoses: The differential diagnosis associated with the presentation includes As per [facility] Admission/Observation Consideration of admission/observation: Escalation of care including admission/observation considered Patient would have been admitted to the hospital had their work up had any findings where hospital admission was appropriate and their clinical presentation warranted hospital admission. Lab Data [facility] Lab Attestation statement: I reviewed the patient's lab results. as per [facility] 08/23/24 12:23 08/23/24 12:23 Labs: Lab Results 08/23/24 Range/Units 12:23 WBC 6.4 (4.8-10.8) X10*3/uL RBC 4.57 (4.20-5.50) X10*6/uL Hgb 13.1 (12.0-16.0) g/dl Hct 39.3 (37.0-47.0) % MCV 86.0 (80.0-98.0) fL MCH 28.7 (27.0-33.0) pg MCHC 33.3 (31.0-35.0) g/dl RDW 13.9 (11.0-16.0) % Plt Count 286 (160-400) X10*3/uL MPV 9.2 L (9.4-12.3) fL Immature Gran % (Auto) 0.3 (0.0-0.4) % Neut % (Auto) 73.4 H (45-73) % Lymph % (Auto) 13.7 L (20-40) % Potter % (Auto) 10.7 (2-11) % Eos % (Auto) 1.4 (0-4) % Baso % (Auto) 0.5 (0-2) % Lymph # (Auto) 0.9 L (1.2-4.9) X10*3/uL Potter # (Auto) 0.7 (0.1-1.2) X10*3/uL Eos # (Auto) 0.1 (0.0-0.4) X10*3/uL Baso # (Auto) 0.0 (0.0-0.2) X10*3/uL Abs Immat Gran (auto) 0.02 (0.00-0.03) X10*3/uL Absolute Neuts (auto) 4.7 (2.0-8.3) x10*3/uL Absolute Nucleated RBC 0.000 (0.0-0.012) X10*3/uL Nucleated RBC % (auto) 0.0 (0.0-0.2) /100WBC Sodium 141 (135-145) mmol/L Potassium 3.5 (3.3-5.1) mmol/L Chloride 103 (96-108) mmol/L Carbon Dioxide 28 (22-29) mmol/L Anion Gap 14 (12-20) BUN 16 (9-16) mg/dL Creatinine 0.80 (0.5-1.4) mg/dL Estim Creat Clear Calc 57.3 Estimated GFR > 60 Random Glucose 101 (60-115) mg/dL Calcium 9.8 (8.4-10.2) mg/dL Magnesium 1.7 (1.6-2.6) mg/dL Total Bilirubin 0.8 (0.0-1.0) mg/dL AST 20 (5-31) U/L ALT 13 (0-31) U/L Alkaline Phosphatase 54 (39-117) U/L Troponin I High Sens < 2.7 (<3.5-17.0) ng/L Total Protein 7.3 (6.5-8.0) g/dL Albumin 4.1 (3.5-5.0) g/dL Lipase 17 (8-78) U/L Urine Color Yellow Urine Appearance Clear Urine pH 5.5 (5.0-9.0) Ur Specific Faber 1.020 (1.005-1.025) Urine Protein Trace (Neg-Trace) mg/dL Urine Glucose (UA) Negative (Negative) mg/dL Urine Ketones 40 (Negative) mg/dL Urine Blood Negative (Negative) Urine Nitrite Negative (Negative) Ur Leukocyte Esterase Negative (Negative) Influenza Type A (PCR) NEGATIVE (Negative) Influenza Type B (PCR) NEGATIVE (Negative) RSV RNA Qual (PCR) NEGATIVE (Negative) SARS-CoV-2 RNA (RT-PCR) NEGATIVE (Negative) Independent Interpretation I performed an independent interpretation of an: Plain X-Ray Interpretation: No evidence of pneumonia on chest xray Radiology Impression Discussion of test interpretation with radiology: I have reviewed the radiologist's reading. Radiologist Impression: XR/XR chest 2V IMPRESSION: No acute cardiopulmonary findings. External Record Review External record reviewed: Inpatient record, Office record and Outpatient record Prescription Management I considered prescription management with: Other Discharge Plan Discharge Clinical Impression: Nausea Patient Disposition: Home, Self-Care Instructions: Acute Nausea and Vomiting (ED) Additional Instructions: You were evaluated in the emergency department today for nausea and fatigue. Your evaluation including labs, urinalysis, viral testing, and chest x-ray was normal. We recommend that you follow up with your primary care provider this week. You may need further evaluation with a casino change attendant. You are being prescribed ondansetron for nausea, take as prescribed. Return to the emergency department with new or concerning symptoms. Prescriptions: New ondansetron 4 mg tablet,disintegrating 4 mg PO Q8H PRN (Reason: nausea and vomiting) Qty: 10 0RF No Action triamcinolone acetonide 0.1 % ointment 1 appl topical BID Qty: 60 0RF diclofenac sodium 1 % gel 2 g topical QID Qty: 100 0RF Rx Instructions: apply to single elbow, wrist or hand; for hand includes palm/fingers/back of hand (DME) InflaRxToResverlogix Verio test strips Strip See Rx Instructions .ROUTE .MEDSUPPLY Qty: 100 4RF Rx Instructions: As directed (DME) lancets [InflaRxTouch Delica Lancets] [facility] See Rx Instructions .Route Qty: 100 3RF Rx Instructions: To test blood sugar As directed, 90 days (DME) blood-glucose meter [OneTouch Verio Flex Start] Kit See Rx Instructions .Route Qty: 1 0RF Rx Instructions: Daily, As directed. 999 days omeprazole 40 mg capsule,delayed release(DR/EC) 40 mg PO DAILY 90 Days Qty: 90 3RF fluoxetine 20 mg capsule 40 mg PO DAILY Qty: 180 2RF gabapentin 600 mg tablet 600 mg PO TID 90 Days Qty: 270 0RF metformin 500 mg tablet 500 mg PO DAILY Qty: 90 3RF bupropion HCl 150 mg tablet extended release 24 hr 150 mg PO QAM 90 Days Qty: 90 3RF Ajovy Syringe 225 mg/1.5 mL syringe subcut Q4W fluticasone propionate 50 mcg/actuation spray,suspension 1 spray intranasal DAILY Atrovent HFA 17 mcg/actuation HFA aerosol inhaler 1 inh inhalation BID sumatriptan succinate 100 mg tablet 100 mg PO DAILY PRN (Reason: Migraine Headache) budesonide-formoterol 160-4.5 mcg/actuation HFA aerosol inhaler 2 puff PO BID cetirizine 10 mg tablet 10 mg PO DAILY PRN (Reason: Itching) Estring 2 mg (7.5 mcg /24 hour) ring 1 vag ring vaginal [id number] rizatriptan 10 mg tablet See Rx Instructions PO .COMPLEX Rx Instructions: take 1 tab at onset of headache; if no relief may repeat 1 tab after at least 2 hrs; max = 3 tabs/24 hr PO Qulipta 60 mg tablet 60 mg PO DAILY ezetimibe [Zetia] 10 mg tablet 10 mg PO DAILY 90 Days Qty: 90 2RF Referrals: [facility] [place] Gastroenterology Services [Provider Group] Print Language: Ghanaian
--- NOTE | 2024-08-23 11:55 | ECG_ITS ---
Test Reason : FATIGUE, WEIGHT LOSS Blood Pressure : / mmHG Vent. Rate : 065 BPM Atrial Rate : 065 BPM P-R Int : 166 ms QRS Dur : 078 ms QT Int : 414 ms P-R-T Axes : 042 -30 -14 degrees QTc Int : 430 ms Normal sinus rhythm Left axis deviation Nonspecific ST and T wave abnormality Abnormal ECG When compared with ECG of 15-AUG-2021 14:44, No significant change was found Referred By: Harriet Tian Electronically Signed By:LEYDI LYNCH
[2024-08-23 12:28] VITALS: BP 139/85; PULSE 69; RESP 14; TEMP 36.7; O2SAT 97
[2024-08-23 12:29] LABS: MANUAL DIFF FLAG NO
[2024-08-23 12:31] LABS: Appearance Urine Clear; Basophils Percent Auto 0.5 % (0-2); Color Urine Yellow; Eosinophils Absolute Auto 0.1 X10*3/uL (0.0-0.4); Eosinophils Percent Auto 1.4 % (0-4); Glucose Urine UA Negative (Negative); Hematocrit 39.3 % (37.0-47.0); Hemoglobin 13.1 g/dl (12.0-16.0); Imm Gran Abs Auto 0.02 X10*3/uL (0.00-0.03); Imm Gran Pct Auto 0.3 % (0.0-0.4); Leukocyte Esterase Urine Negative (Negative); Lymphocytes Absolute Auto 0.9 X10*3/uL (1.2-4.9); Lymphocytes Percent Auto 13.7 % (20-40); Mean Corpuscular HGB Conc 33.3 g/dl (31.0-35.0); Mean Corpuscular Hemoglobin 28.7 pg (27.0-33.0); Mean Platelet Volume 9.2 fL (9.4-12.3); Monocytes Absolute Auto 0.7 X10*3/uL (0.1-1.2); Monocytes Percent Auto 10.7 % (2-11); Neutrophils Absolute Auto 4.7 x10*3/uL (2.0-8.3); Neutrophils Percent Auto 73.4 % (45-73); Nitrite Urine Negative (Negative); PH 5.5 (5.0-9.0); Platelet Count 286 X10*3/uL (160-400); Red Blood Count 4.57 X10*6/uL (4.20-5.50); Red Cell Distribution Width 13.9 % (11.0-16.0); Urine Blood Negative (Negative); Urine Ketones 40 mg/dL (Negative); Urine Protein Trace mg/dL (Neg-Trace); White Blood Count 6.4 X10*3/uL (4.8-10.8)
[2024-08-23 12:47] LABS: Alanine Aminotransferase 13 U/L (0-31); Albumin Level 4.1 g/dL (3.5-5.0); Alkaline Phosphatase 54 U/L (39-117); Anion Gap 14 (12-20); Aspartate Amino Transferase 20 U/L (5-31); Bilirubin Total 0.8 mg/dL (0.0-1.0); Blood Urea Nitrogen 16 mg/dL (9-16); Calcium 9.8 mg/dL (8.4-10.2); Carbon Dioxide 28 mmol/L (22-29); Chloride 103 mmol/L (96-108); Creatinine Clr Calc Pharmacy 57.3; Estimated Glomerular Filt Rate > 60; Glucose Random 101 mg/dL (60-115); Lipase 17 U/L (8-78); Magnesium 1.7 mg/dL (1.6-2.6); Potassium 3.5 mmol/L (3.3-5.1); Sodium 141 mmol/L (135-145); Total Protein 7.3 g/dL (6.5-8.0)
[2024-08-23 12:57] LABS: Troponin-I High Sensitivity < 2.7 ng/L (<3.5-17.0)
[2024-08-23 13:09] LABS: Influenza A PCR NEGATIVE (Negative); Influenza B PCR NEGATIVE (Negative); Resp Syncy Virus RNA Qual PCR NEGATIVE (Negative); SARS COV2 PCR INHOUSE NEGATIVE (Negative)
[2024-08-23 14:22] VITALS: BP 160/77; PULSE 68; RESP 14; TEMP 36.6; O2SAT 97
[2024-08-23 15:27] VITALS: BP 158/72; PULSE 74; RESP 18; TEMP 36.7; O2SAT 98
== END 2024-08-23 15:29 | disposition home or self-care (01) ==
PROVIDERS: Physician Assistant Medical; Emergency Provider Emergency Medicine; PCP Family Medicine
DX: R11.0 Nausea (principal); Z03.818 Encounter for observation for suspected exposure to other biological agents ruled out; J45.909 Unspecified asthma, uncomplicated
CPT/HCPCS: 0241U; 71046; 80053; 81003; 83690; 83735; 84484; 85025; 93005; 99283; 99285

== ENCOUNTER → 2024-08-23 11:55 | Outpatient (BNV) | payer MEDICARE, SELFPAY | PROVIDERS: Emergency Provider Emergency Medicine; PCP Family Medicine; Visit Provider Internal Medicine | DX: R94.31 Abnormal electrocardiogram [ECG] [EKG] (principal) | CPT/HCPCS: 93010 ==

== ENCOUNTER 2024-09-08 10:36 | Outpatient (AMB) | payer MEDICARE, SELFPAY ==
--- NOTE | 2024-09-08 10:49 | MHC.PC.OV ---
Vital Signs 09/08/24 10:51 Height 5 ft Weight 136 lb 6 oz BMI 26.6 BP 110/70 Blood Pressure Location Rt brachial Position Sitting Respiration 16 Pulse 71 Pulse Source Pulse Oximeter Pulse Oximetry (%) 98 Oxygen Delivery Method Room Air Intake Visit Reasons: f/u diabetes Intake Note: f/u DM Allergies fentanyl [FENTANYL] Allergy (Intermediate, Verified 09/08/24 10:50) HIVES morphine [MORPHINE] Allergy (Intermediate, Verified 09/08/24 10:50) HIVES nickel [NICKEL] Allergy (Intermediate, Verified 09/08/24 10:50) RASH NSAIDS (Non-Steroidal Anti-Inflamma [NSAIDS (NON-STEROIDAL ANTI-INFLAMMA] Allergy (Intermediate, Verified 09/08/24 10:50) HIVES oxycodone [OXYCODONE] Allergy (Intermediate, Verified 09/08/24 10:50) HIVES ranitidine [Zantac] Allergy (Intermediate, Verified 09/08/24 10:50) rash Seasonal Allergies Allergy (Intermediate, Verified 09/08/24 10:50) Itchy Eyes silver [From TEGADERM AG MESH] Allergy (Intermediate, Verified 09/08/24 10:50) HIVES prednisone Adverse Reaction (Intermediate, Verified 09/08/24 10:50) RAsh OxyContin Allergy (Intermediate, Uncoded 03/19/24 10:57) RAsh red dye for scans Allergy (Intermediate, Uncoded 03/19/24 10:57) RAsh Tobacco use date assessed: 12/19/23 Dental Screening Dental Screen Date: 12/19/23 HPI f/u diabetes HPI Details 68 y/o female presents to f/u diabetes. Last A1c 6.0% at last visit. A1c today 09/08/24 is She is on metformin 500mg daily. Notes she has been having ongoing issues with nausea. She is on ondansetron and reports this does not seem to work. Notes bupropion has been helping with mood. [facility] Medical History Arthritis Back pain Diabetes GERD (gastroesophageal reflux disease) TIA (transient ischemic attack) Hx of migraine headaches Hx of sarcoidosis Asthma Essential hypertension Surgical History History of surgery History of fusion of cervical spine History of lumbar fusion History of total replacement of both hip joints H/O colonoscopy Family History Father Colon cancer Diabetes mellitus CVD (cardiovascular disease) COPD (chronic obstructive pulmonary disease) Smoker Mother Lung cancer Son Diabetes mellitus ETOH abuse Depression Social History (Updated 06/17/24 @ 16:02 by Aj Bosch [facility]) Housing: Apartment Are you a primary director of health care marketing to a significant other at home: No Do you presently have visiting nurse or other home services: No Alcohol intake: never Patient Tobacco Use Status: Never used Tobacco e-Cigarette/Vaping Use: Never Used Second Hand Smoke Exposure: Yes service: No Current occupational status: retired Current occupational exposures/hazards: No Cognitive needs: No Hearing needs: No Vision needs: No (Glasses) Questionnaire PHQ-9 Over the last 2 weeks, how often have you been bothered by any of the following problems? 1. Little interest or pleasure in doing things: more than half the days 2. Feeling down, depressed, or hopeless: not at all 3. Trouble falling or staying asleep, or sleeping too much: more than half the days 4. Feeling tired or having little energy: more than half the days 5. Poor appetite or overeating: more than half the days 6. Feeling bad about yourself - or that you are a failure or have let yourself or your family down: not at all 7. Trouble concentrating on things, such as reading the newspaper or watching television: not at all 8. Moving or speaking so slowly that other people could have noticed. Or the opposite - being so fidgety or restless that you have been moving around a lot more than usual: more than half the days 9. Thoughts that you would be better off or of hurting yourself in some way: not at all Total score: 10 Source: Developed by Drs. Zaki Shukla, Vanessa Zazueta, Fabio Rosario and colleagues, with an educational katharine from Payment plugin. Thrive Questionnaire Date Thrive assessed: 09/01/24 I am a: Patient What is your living situation today?: I have a steady place to live Within the past 12 months, did the food you bought not last and you didn't have the money to get more?: Never true Within the past 12 months, did you worry whether your food would run out before you got money to buy more?: Never true Do you have trouble paying for medicines?: No Do you have trouble getting transportation to medical appointments?: No Do you have trouble paying your heating and electricity bill?: No Do you have trouble taking care of your child, family member or friend?: No Do you have trouble with day-to-day activities such as bathing, preparing meals, shopping, managing finances, etc.?: No Are you currently unemployed and looking for a job?: No Are you interested in more education?: No Please select the resources that you would like help with: None Currently or been in a relationship where the following occur: I choose not to answer THRIVE Score: 0 AUDIT C Alcohol Use Questionnaire (AUDIT-C) 1. How often do you have a drink containing alcohol?: Never 2. How many drinks containing alcohol do you have on a typical day when you are drinking?: 1 or 2 3. How often do you have six or more drinks on one occasion?: Never Total Score: 0 REGINA-7 AMB Questionnaire REGINA-7 Date REGINA - 7 assessed: 06/17/24 Feeling nervous, anxious, or on edge: 2 = More than half the days Not being able to stop or control worryin = Several days Worrying too much about different things: 1 = Several days Trouble relaxin = Several days Being so restless that it is hard to sit still: 1 = Several days Becoming easily annoyed or irritable: 1 = Several days Feeling afraid as if something awful might happen: 0 = Not at all Total REGINA-7 score (0-4 normal; 5-9 mild; 10-14 moderate; 15-21 severe): 7 Source: Developed by Drs. Zaki Shukla, Vanessa Zazueta, Fabio Rosario and colleagues, with an educational katharine from Payment plugin. Review of Systems Const Denies chills, Denies fatigue, Denies fever(s), Denies headache(s) and Denies weakness ENT Denies dizziness and Denies headache(s) Card Denies chest pain, Denies lightheadedness, Denies dyspnea and Denies other (Palpitations) Resp Denies cough, Denies dyspnea, Denies wheezing and Denies other ( shortness of breath) GI Reports nausea Musc Denies numbness and Denies tingling Neuro Denies dizziness, Denies headache(s), Denies numbness, Denies tingling, Denies paresthesias and Denies weakness Psych Denies anxiety and Denies depression Endo Denies fatigue Aller/Immun Denies wheezing Physical exam (Primary Care) Vital Signs: Last Vital Signs Pulse 71 09/08/24 10:51 Resp 16 09/08/24 10:51 BP 110/70 09/08/24 10:51 Pulse Ox 98 09/08/24 10:51 Oxygen Delivery Method Room Air 09/08/24 10:51 BMI result Body Mass Index 26.6 Tobacco/Smoking Status: Tobacco use Status Tobacco use date assessed 12/19/23 09/08/24 10:54 Patient Tobacco Use Status Never used Tobacco 09/08/24 10:54 e-Cigarette/Vaping Use Never Used 09/08/24 10:54 PHQ-9: PHQ-9 Score PHQ-9: Total score 10 09/08/24 10:54 Thrive Assessment: Date of Thrive Assessment Date Thrive assessed 09/01/24 09/08/24 10:54 Currently or been in a relationship where the following occur: I choose not to answer Const General: no acute distress and well developed Nutritional Appearance: well nourished Orientation/consciousness: patient oriented [facility]3 [facility]: Yes normocephalic and Yes atraumatic Eyes General: appearance normal, both eyes and all related structures Pupils: Equal, round and reactive pupils present EOM: EOMs intact bilaterally Resp Effort & Inspection: normal respiratory effort Auscultation: clear to auscultation bilaterally Cardio Rate: regular rate Rhythm: regular rhythm Heart sounds: S1 normal heart sound present, S2 normal heart sound present, no gallops, no murmurs and no rubs Neuro General: patient oriented x3 and gait normal Cranial nerves: Yes Equal, round and reactive pupils present Psych Affect: normal affect Coding Level of Care Code Est Pt Level 4 (37770) Diagnoses Diabetes mellitus type 2, controlled E11.9 Depression with anxiety F41.8 Nausea R11.0 Assessment & Plan Assessment & Plan (1) Diabetes mellitus type 2, controlled: Code(s): E11.9 - Type 2 diabetes mellitus without complications Category: Medical Plan: A1c?5.5%.??Good?control.??Goal?is?less?than?7.0% Continue?current?medication (2) Depression with anxiety: Code(s): F41.8 - Other specified anxiety disorders Category: Medical Plan: Had?added?bupropion?to?her?fluoxetine?regimen. Feels?that?this?is?helping Continue?current?medication?regimen (3) Nausea: Code(s): R11.0 - Nausea Category: Medical Plan: Patient?has?had?episodes?of?nausea?and?went?to?ED. Workup?was?unremarkable. They?gave?her?ondansetron Patient?notes?that?her?nausea?has?been?improving?but?still?present. Had?lost?some?weight?but?says?she?has?started?gaining?some?back. She?also?notes?that?she?does?not?always?drink?enough?water. Encouraged?increased?hydration?with?small?frequent?sips,?popsicles?and?Jell-O Will?give?her?MiraLax Refill?ondansetron She?will?let?me?know?if?not?resolving?or?worsens.??Would?refer?to?GI Orders: Orders Comprehensive Met. Panel Today R11.0 - Nausea Complete Blood Count Auto Diff Today Z00.00 - Encounter for general adult medical examination without abnormal findings Medications: New polyethylene glycol 3350 (Miralax) 17 grams PO DAILY 14 days 14 ea 0RF
[2024-09-08 10:51] VITALS: BP 110/70; PULSE 71; RESP 16; O2SAT 98; BMI 26.6
== END 2024-09-08 11:14 | disposition home or self-care (01) ==
PROVIDERS: PCP Family Medicine; Visit Provider Family Medicine
DX: E11.9 Type 2 diabetes mellitus without complications (principal); F41.8 Other specified anxiety disorders; R11.0 Nausea

== ENCOUNTER → 2024-09-08 10:36 | Outpatient (BNVA) | payer MEDICARE, SELFPAY | PROVIDERS: PCP Family Medicine; Visit Provider Family Medicine | DX: Z00.00 Encounter for general adult medical examination without abnormal findings (principal); E11.9 Type 2 diabetes mellitus without complications; F41.8 Other specified anxiety disorders; R11.0 Nausea; Z79.84 Long term (current) use of oral hypoglycemic drugs | CPT/HCPCS: 83036; 96127; 99212 ==

== ENCOUNTER 2025-08-04 10:45 | Emergency (ER) | payer MEDICARE, SELFPAY ==
--- NOTE | ~2025-08-04 | XR_ITS ---
EXAMINATION: XR CHEST CLINICAL INFORMATION: cough, chest pain COMPARISON: 08/23/2024 TECHNIQUE: 2 views of the chest were obtained. FINDINGS: There is surgical fusion with hardware involving the lower cervical spine. There is a rectangular neurostimulator in the posterior epidural space of the mid-thoracic spine, unchanged. Wires extend to generator that is partially demonstrated in the left superior gluteal region. There are low lung volumes. Lungs are clear. Heart size is within normal limits. There is no pleural effusion. There is mild to moderate degenerative change in the thoracic spine. XR/XR chest 2V IMPRESSION: No acute disease Electronically signed by: Napoleon Pierce MD 08/04/2025 11:25 AM EST
--- NOTE | 2025-08-04 10:47 | ECG_ITS ---
Test Reason : CP Blood Pressure : */* mmHG Vent. Rate : 73 BPM Atrial Rate : 73 BPM P-R Int : 158 ms QRS Dur : 78 ms QT Int : 390 ms P-R-T Axes : 32 -42 -16 degrees QTcB Int : 429 ms Normal sinus rhythm Left axis deviation Abnormal ECG When compared with ECG of 23-Aug-2024 12:08, Nonspecific T wave abnormality has replaced inverted T waves in Anterior leads Referred By: Elena Mireles Electronically Signed By: SUHA HADLEY MD
[2025-08-04 10:56] VITALS: BP 137/63; PULSE 70; RESP 18; TEMP 36.4; O2SAT 95; BMI 27.9
--- NOTE | 2025-08-04 10:57 | ED.GENADULT ---
HPI - General Adult General Chief complaint: Chest Pain Stated complaint: CP since 8 am Related Data Home Medications ?Medication ?Instructions ?Recorded ?Confirmed budesonide-formoterol HFA 160 2 puff PO BID 07/09/20 06/17/24 mcg-4.5 mcg/actuation aerosol inhaler cetirizine 10 mg tablet 10 mg PO DAILY PRN Itching 07/09/20 06/17/24 fluticasone propionate 50 1 spray intranasal DAILY 07/09/20 06/17/24 mcg/actuation nasal spray,suspension ipratropium bromide 17 1 inh inhalation BID 07/09/20 06/17/24 mcg/actuation HFA aerosol inhaler sumatriptan succinate 100 mg tablet 100 mg PO DAILY PRN Migraine 07/09/20 06/17/24 Headache fremanezumab-vfrm 225 mg/1.5 mL mg subcut Q4W 09/02/21 06/17/24 subcutaneous syringe (Ajovy Syringe) estradiol 2 mg (7.5 mcg/24 hour) 1 vag ring vaginal [id number] 08/29/22 06/17/24 vaginal ring (Estring) atogepant 60 mg tablet (Qulipta) 60 mg PO DAILY 05/12/24 06/17/24 rizatriptan 10 mg tablet See Rx Instructions PO .COMPLEX 05/12/24 06/17/24 Previous Rx's ?Medication ?Instructions ?Recorded triamcinolone acetonide 0.1 % 1 appl topical BID #60 grams 01/31/23 topical ointment diclofenac sodium 1 % topical gel 2 g topical QID #100 grams 02/07/23 blood sugar diagnostic (OneTouch #100 ea 02/11/23 Verio test strips) lancets 33 gauge (OneTouch Delica #100 ea 02/11/23 Lancets) blood-glucose meter (OneTouch #1 ea 02/16/23 Verio Flex Start kit) omeprazole 40 mg capsule,delayed 40 mg PO DAILY 90 days #90 caps 03/13/24 release metformin 500 mg tablet 500 mg PO DAILY #90 tabs 06/24/24 bupropion HCl 150 mg 24 hr tablet, 150 mg PO QAM 90 days #90 tabs 07/16/24 extended release ondansetron 4 mg disintegrating 4 mg PO Q8H PRN nausea and 08/23/24 tablet vomiting #10 tabs polyethylene glycol 3350 17 gram 17 g PO DAILY 14 days #14 ea 09/08/24 oral powder packet (Miralax) fluoxetine 20 mg capsule 40 mg (2 x 20 mg) PO DAILY #180 09/15/24 caps gabapentin 600 mg tablet 600 mg PO TID 90 days #270 tabs 10/08/24 ezetimibe 10 mg tablet (Zetia) 10 mg PO DAILY 90 days #90 tabs 12/10/24 Allergies Allergy/AdvReac Type Severity Reaction Status Date / Time fentanyl (FENTANYL) Allergy Intermediate HIVES Verified 08/04/25 10:58 morphine (MORPHINE) Allergy Intermediate HIVES Verified 08/04/25 10:58 nickel (NICKEL) Allergy Intermediate RASH Verified 08/04/25 10:58 NSAIDS (Non-Steroidal Allergy Intermediate HIVES Verified 08/04/25 10:58 Anti-Inflamma (NSAIDS (NON-STEROIDAL ANTI-INFLAMMA) oxycodone (OXYCODONE) Allergy Intermediate HIVES Verified 08/04/25 10:58 ranitidine (Zantac) Allergy Intermediate rash Verified 08/04/25 10:58 Seasonal Allergies Allergy Intermediate Itchy Eyes Verified 08/04/25 10:58 silver (From TEGADERM AG Allergy Intermediate HIVES Verified 08/04/25 10:58 MESH) prednisone AdvReac Intermediate RAsh Verified 08/04/25 10:58 OxyContin Allergy Intermediate RAsh Uncoded 03/19/24 10:57 red dye for scans Allergy Intermediate RAsh Uncoded 03/19/24 10:57 PMFSH Past Medical History Medical History Arthritis Back pain Diabetes GERD (gastroesophageal reflux disease) TIA (transient ischemic attack) Hx of migraine headaches Hx of sarcoidosis Asthma Essential hypertension Surgical History History of surgery History of fusion of cervical spine History of lumbar fusion History of total replacement of both hip joints H/O colonoscopy Family History Family History Father Colon cancer Diabetes mellitus CVD (cardiovascular disease) COPD (chronic obstructive pulmonary disease) Smoker Mother Lung cancer Son Diabetes mellitus ETOH abuse Depression Social History Social History (Updated 06/17/24 @ 16:02 by JEREMIAS Caballero) Housing: Apartment Are you a primary child care to a significant other at home: No Do you presently have visiting nurse or other home services: No Alcohol intake: never Patient Tobacco Use Status: Never used Tobacco e-Cigarette/Vaping Use: Never Used Second Hand Smoke Exposure: Yes Advance Directives: No Advance Directives Information Provided: No Do you have a plan to hurt others: No Plan service: No Current occupational status: retired Current occupational exposures/hazards: No Cognitive needs: No Hearing needs: No Vision needs: No (Glasses) Physical Exam ED Vital Signs: BMI result Body Mass Index 27.9 Course Course Course Narrative: This is a rapid medical exam performed by Jad Mireles NP: Additional HPI, ROS, PE not included below will be deferred to primary provider. Patient is a 69y/o F presenting with c/o chest pain since this morning, recent cough x 1 week. Plan: EKG, labs, viral serology Patient left the emergency department before myself or any of the other clinicians could review or explain physical exam findings, test results, need or lack there of for additional testing, treatment options, or a treatment plan. Medical Decision Making Lab Data 08/04/25 11:46 08/04/25 11:46 Labs: Lab Results 08/04/25 08/04/25 Range/Units 11:40 11:46 WBC 5.0 (4.8-10.8) X10*3/uL RBC 4.46 (4.20-5.50) X10*6/uL Hgb 13.0 (12.0-16.0) g/dl Hct 39.0 (37.0-47.0) % MCV 87.4 (80.0-98.0) fL MCH 29.1 (27.0-33.0) pg MCHC 33.3 (31.0-35.0) g/dl RDW 13.5 (11.0-16.0) % Plt Count 269 (160-400) X10*3/uL MPV 9.5 (9.4-12.3) fL Immature Gran % (Auto) 0.4 (0.0-0.4) % Neut % (Auto) 67.2 (45-73) % Lymph % (Auto) 19.4 L (20-40) % Caroline % (Auto) 9.4 (2-11) % Eos % (Auto) 3.2 (0-4) % Baso % (Auto) 0.4 (0-2) % Lymph # (Auto) 1.0 L (1.2-4.9) X10*3/uL Caroline # (Auto) 0.5 (0.1-1.2) X10*3/uL Eos # (Auto) 0.2 (0.0-0.4) X10*3/uL Baso # (Auto) 0.0 (0.0-0.2) X10*3/uL Abs Immat Gran (auto) 0.02 (0.00-0.03) X10*3/uL Absolute Neuts (auto) 3.4 (2.0-8.3) x10*3/uL Absolute Nucleated RBC 0.000 (0.0-0.012) X10*3/uL Nucleated RBC % (auto) 0.0 (0.0-0.2) /100WBC PT 12.6 (11.2-13.5) SEC INR 1.0 (0.9-1.1) Sodium 139 (135-145) mmol/L Potassium 4.3 D (3.3-5.1) mmol/L Chloride 107 (96-108) mmol/L Carbon Dioxide 25 (22-29) mmol/L Anion Gap 11 L (12-20) BUN 19 H (9-16) mg/dL Creatinine 0.85 (0.5-1.4) mg/dL Estim Creat Clear Calc 51.6 Estimated GFR > 60 Random Glucose 89 (60-115) mg/dL Calcium 9.8 (8.4-10.2) mg/dL Total Bilirubin 0.6 (0.0-1.0) mg/dL AST 20 (5-31) U/L ALT 14 (0-31) U/L Alkaline Phosphatase 69 (39-117) U/L Troponin I High Sens < 2.7 (<3.5-17.0) ng/L Total Protein 7.5 (6.5-8.0) g/dL Albumin 4.3 (3.5-5.0) g/dL Influenza Type A (PCR) NEGATIVE (Negative) Influenza Type B (PCR) NEGATIVE (Negative) RSV RNA Qual (PCR) NEGATIVE (Negative) SARS-CoV-2 RNA (RT-PCR) NEGATIVE (Negative) Discharge Plan Discharge Clinical Impression: Cough Patient Disposition: Left W/O Completing Treatment Prescriptions: No Action triamcinolone acetonide 0.1 % ointment 1 appl topical BID Qty: 60 0RF diclofenac sodium 1 % gel 2 g topical QID Qty: 100 0RF Rx Instructions: apply to single elbow, wrist or hand; for hand includes palm/fingers/back of hand (DME) Smart DestinationsTouch Verio test strips Strip See Rx Instructions .ROUTE .MEDSUPPLY Qty: 100 4RF Rx Instructions: As directed (DME) lancets [SMB Suite Delica Lancets] 33 gauge misc See Rx Instructions .Route Qty: 100 3RF Rx Instructions: To test blood sugar As directed, 90 days (DME) blood-glucose meter [SMB Suite Verio Flex Start] Kit See Rx Instructions .Route Qty: 1 0RF Rx Instructions: Daily, As directed. 999 days omeprazole 40 mg capsule,delayed release(DR/EC) 40 mg PO DAILY 90 Days Qty: 90 3RF metformin 500 mg tablet 500 mg PO DAILY Qty: 90 3RF bupropion HCl 150 mg tablet extended release 24 hr 150 mg PO QAM 90 Days Qty: 90 3RF fluoxetine 20 mg capsule 40 mg PO DAILY Qty: 180 2RF gabapentin 600 mg tablet 600 mg PO TID 90 Days Qty: 270 0RF ezetimibe [Zetia] 10 mg tablet 10 mg PO DAILY 90 Days Qty: 90 2RF ondansetron 4 mg tablet,disintegrating 4 mg PO Q8H PRN (Reason: nausea and vomiting) Qty: 10 0RF Ajovy Syringe 225 mg/1.5 mL syringe subcut Q4W fluticasone propionate 50 mcg/actuation spray,suspension 1 spray intranasal DAILY Atrovent HFA 17 mcg/actuation HFA aerosol inhaler 1 inh inhalation BID sumatriptan succinate 100 mg tablet 100 mg PO DAILY PRN (Reason: Migraine Headache) budesonide-formoterol 160-4.5 mcg/actuation HFA aerosol inhaler 2 puff PO BID cetirizine 10 mg tablet 10 mg PO DAILY PRN (Reason: Itching) Estring 2 mg (7.5 mcg /24 hour) ring 1 vag ring vaginal [id number] rizatriptan 10 mg tablet See Rx Instructions PO .COMPLEX Rx Instructions: take 1 tab at onset of headache; if no relief may repeat 1 tab after at least 2 hrs; max = 3 tabs/24 hr PO Qulipta 60 mg tablet 60 mg PO DAILY polyethylene glycol 3350 [Miralax] 17 gram powder in packet 17 g PO DAILY 14 Days Qty: 14 0RF Discharge Date/Time: 08/04/25 14:45
[2025-08-04 11:52] LABS: MANUAL DIFF FLAG NO
[2025-08-04 11:56] LABS: Hematocrit 39.0 % (37.0-47.0); Hemoglobin 13.0 g/dl (12.0-16.0); Imm Gran Abs Auto 0.02 X10*3/uL (0.00-0.03); Imm Gran Pct Auto 0.4 % (0.0-0.4); Lymphocytes Absolute Auto 1.0 X10*3/uL (1.2-4.9); Mean Corpuscular HGB Conc 33.3 g/dl (31.0-35.0); Mean Corpuscular Hemoglobin 29.1 pg (27.0-33.0); Mean Corpuscular Volume 87.4 fL (80.0-98.0); NRBC Abs Auto 0.000 X10*3/uL (0.0-0.012); NRBC Pct Auto 0.0 /100WBC (0.0-0.2); Platelet Count 269 X10*3/uL (160-400); Red Blood Count 4.46 X10*6/uL (4.20-5.50); White Blood Count 5.0 X10*3/uL (4.8-10.8)
[2025-08-04 12:11] LABS: Alanine Aminotransferase 14 U/L (0-31); Albumin Level 4.3 g/dL (3.5-5.0); Alkaline Phosphatase 69 U/L (39-117); Anion Gap 11 (12-20); Aspartate Amino Transferase 20 U/L (5-31); Blood Urea Nitrogen 19 mg/dL (9-16); Calcium 9.8 mg/dL (8.4-10.2); Carbon Dioxide 25 mmol/L (22-29); Chloride 107 mmol/L (96-108); Creatinine Clr Calc Pharmacy 51.6; Estimated Glomerular Filt Rate > 60; INTERNATIONAL NORM RATIO 1.0 (0.9-1.1); Potassium 4.3 mmol/L (3.3-5.1); Prothrombin Time 12.6 SEC (11.2-13.5); Sodium 139 mmol/L (135-145); Total Protein 7.5 g/dL (6.5-8.0)
[2025-08-04 12:18] LABS: Troponin-I High Sensitivity < 2.7 ng/L (<3.5-17.0)
[2025-08-04 12:41] LABS: Resp Syncy Virus RNA Qual PCR NEGATIVE (Negative); SARS COV2 PCR INHOUSE NEGATIVE (Negative)
--- OUTSIDE RECORDS SUMMARY | 2025-08-04 15:28 | XMS_ITS | Encounter Summary ---
Author Organization [facility] Address [address] [place] [phone] Phone Care Team Providers Care Bistro Attendant Name Role Phone Roverto Ricci DO Unavailable Rama Bryant CHIEF OPERATOR REFORMER Unavailable Jessica Lozada CHIEF OPERATOR REFORMER Unavailable [phone] Ben Rankin MD Unavailable Carol Smith RDCS Unavailable [email or web address] Kallie Saleem CHIEF OPERATOR REFORMER Unavailable Jack Calderón MD Unavailable Veronica Morales MD Primary Care Provider [phone] Encounter Details Date Type Department Care Team (Latest Contact Info) Description 02/05/2025 Transcribe Orders [facility] [address] [place] [address] Jessica Duran PA-C [address], [address] [place] [address] Constipation, unspecified constipation type (Primary Dx); Loss of weight Social History Tobacco Use Types Packs/Day Years Used Date Smoking Tobacco: Never Assessed Education Answer Date Recorded Are you interested in more education? Not on damian e 01/19/2023 Are you concerned about learning? Not on file 01/19/2023 No 01/19/2023 No 01/19/2023 Digital Access Answer Date Recorded No 02/19/2023 No 02/19/2023 Reliable internet access at home? Not on file 02/19/2023 Device with a working camera? Not on file Comments Unknown Sex and Gender Information Value Date Recorded Sex Assigned at Not on file Legal Sex Female 9:52 PM EDT Gender Identity Female 01/16/2025 5:58 PM EDT Sexual Orientation Straight 01/16/2025 5: 58 PM EDT documented as of this encounter Plan of Treatment Upcoming Encounters Date Type Department Care Team (Late st Contact Info) Description 08/12/2025 10:00 AM EST Office Visit [facility] [address] [place] [address] Unknown, Unknown, MD Cotton, Jen Reina, [facility] [address] [place] [address] documented as of this encounter Results * C-Reactive Protein (02/05/2025 11:53 AM EDT) C REACTIVE PROTEIN <3.0 0.0 - 4.0 mg/L [facility] Blood 02/05/2025 11:5 3 AM EDT 02/05/2025 12:04 PM EDT us Jessica Duran PA-C LAB BLOOD BKR ORDERABLES Final Result Performing Organization Address City/[facility]/ZIP Co de Phone Number [address] [address] * Immunoglobulin A (02/05/2025 11:53 AM EDT) IgA 226 70 - 400 mg/dL [facility] Blood 02/05/2025 11:5 3 AM EDT 02/05/2025 12:04 PM EDT Jessica Duran PA-C LAB BLOOD BKR ORDERABLES Final Result [facility] [address] [place] [address] * Tissue transglutaminase IgA (02/05/2025 11:53 AM EDT) TTG IGA ANTIBODY <1.2 <4.0 (Negative) U/mL [facility] Blood 02/05/2025 11:5 3 AM EDT 02/05/2025 12:03 PM EDT us Jessica Duran PA-C LAB BLOOD BKR ORDERABLES Final Result [facility] [address] [place] [address] documented in this encounter Visit Diagnoses Diagnosis Constipation, unspecified constipation type- Primary Loss of weight documented in this encounter Care Teams Bistro Attendant Relationship Specialty Start Date End Date Veronica Morales MD [address] [place] [phone] [email or web address] PCP - General Otolaryngology 08/23/24 Roverto Ricci DO [email or web address] Historical LMR Provider 07/15/17 Rama Bryant NP [address] [place] [phone] [email or web address] Historical LMR Provider 07/15/17 Jessica Lozada NP [address] [place] [id number] Historical LMR Provider 07/15/17 Ben Rankin MD [address] [place] [address], [address] [place] [id number] Historical LMR Provider 07/15/17 Carol Smith RDCS Historical LMR Provider 07/15/17 Kallie Saleem NP [address] [place] [address] Historical LMR Provider 07/15/17 Jack Calderón MD [address] [place] [id number] 09/26/21 documented as of this encounter Additional Source Comments The information contained in this document represents components of the legal health record. It is not the complete legal health record.[facility]
--- OUTSIDE RECORDS SUMMARY | 2025-08-04 15:28 | XMS_ITS | Clinical Summary ---
Author Organization [facility] Address [address] [facility] [address] [place] [address] Phone Care Team Providers Care Vp Of Marketing Name Role Phone Roverto Ricci DO Unavailable Rama Bryant KINDER TEACHER Unavailable Jessica Lozada KINDER TEACHER Unavailable [phone] Ben Rankin MD Unavailable [phone] Carol Smith RDCS Unavailable [email or web address] Kallie Saleem KINDER TEACHER Unavailable [phone] Jack Calderón MD Unavailable [phone] Veronica Morales MD Primary Care Provider [phone] Allergies Active Allergy Reactions Criticality Noted Date Comments Fentanyl Other (See Comments),Rash Low 08/23/2024 Gadolinium-Containing Contrast Media Hives 08/23/2024 Lamotrigine Rash Low 08/23/2024 Lidocaine Rash Low 08/23/2024 Morphine Hallucinations,Other (See Comments),Unknown High 08/23/2024 Nickel Other (See Comments),Rash Low 08/23/2024 Nsaids (Non-Steroidal Anti-Inflammatory Drug) Other (See Comments),Rash Low 08/23/2024 Other Rash Low 08/23/2024 Oxaprozin Rash Low 08/23/2024 Oxycodone Hallucinations,Rash, Unkno wn High 08/23/2024 Prednisone Other (See Comments),Unknown 08/23/2024 Ranitidine Other (See Comments),Rash,Unknown Low 08/23/2024 Silver Rash Low 08/23/2024 Adhesive Tape-Silicones Rash High 08/23/2024 Medications cholecalciferol, vitamin D3, 25 mcg (1,000 unit) capsule take 1 tablet by mouth once daily Oral for 30 Active butalbital-acetami nophen-caffeine (FIORICET, ESGIC) 50-325-40 mg per tablet 1 tablet as needed for tension headache 0 Active gabapentin-lidocai ne-menthoL 300-4-1 mg-%-% KTGC 5 daily 3 Active gabapentin (NEURONTIN) 600 MG tablet Take 1 tablet by mouth 3 (three) times a day. Taking prn 3 Active furosemide (LASIX) 20 MG tablet take 1 tablet by mouth once daily Oral for 30 Active AJOVY SYRINGE 225 mg/1.5 mL subcutaneous syringe 4 Active FLUoxetine (PROZAC) 20 MG capsule Take 2 capsules by mouth every morning. 4 Active fluticasone propionate (FLONASE) 50 mcg/actuation nasal spray 2 sprays by Nasal route daily. Active ezetimibe (ZETIA) 10 mg tablet Take 1 tablet by mouth daily. Active ESTRING 2 mg (7.5 mcg /24 hour) vaginal ring 4 Active clonazePAM (KLONOPIN) 1 MG disintegrating tablet 1 mg nightly at bedtime. 2 Active DULoxetine (CYMBALTA) 60 MG capsule 60 mg. Active cetirizine (ZYRTEC) 10 MG tablet Take 1 tablet by mouth daily as needed. Active buPROPion (WELLBUTRIN XL) 150 MG ER 24 hr tablet Take 150 mg by mouth every morning. 4 Active budesonide/formote rol fumarate (SYMBICORT INHL) Inhale into the lungs. 4 Active budesonide-formote rol 160-4.5 mcg/actuation inhaler INHALE 2 PUFFS BY MOUTH TWICE DAILY J 45.9 Active ipratropium (ATROVENT HFA) 17 mcg/actuation inhaler INHALE 2 PUFFS FOUR TIMES DAILY NEEDED FOR WHEEZING AND SHORTNESS OF BREATH. DO NOT EXCEED 12 PUFFS PER DAY 4 Active metFORMIN (GLUCOPHAGE) 500 MG tablet Take 1 tablet by mouth daily. Active ascorbic acid, vitamin C, 500 mg Cap as directed Orally Active QULIPTA 60 mg tablet Take 1 tablet by mouth daily. 4 Active omeprazole (PRILOSEC) 40 MG capsule Take 1 capsule by mouth daily. Active rizatriptan (MAXALT) 10 MG tablet TAKE 1 TABLET BY MOUTH DAILY NEEDED FOR MIGRAINE HEADACHE. MAY REPEAT DOSE IN 2 HOURS NEEDED. DO NOT EXCEED 2 DOSES IN 24 HOURS 4 Active SUMAtriptan (IMITREX) 100 MG tablet Active traMADoL (ULTRAM) 50 mg tablet 50 mg as needed. Active ubrogepant (UBRELVY) 50 mg tablet TAKE 1 TABLET BY MOUTH EVERY DAY NEEDED FOR MIGRAINE HEADACHE. MAY REPEAT DOSE IN 2 HOURS. MAX 2 TABLETS IN 24 HOURS Active buPROPion (WELLBUTRIN) 75 MG immediate release tablet Take 1 tablet by mouth 2 (two) times a day. Active zafirlukast (ACCOLATE) 20 MG tablet take 1 tablet by mouth once daily Oral for 30 Active Social History Tobacco Use Types Packs/Day Years [...] Orientation Straight 01/16/2025 5: 58 PM EDT Last Filed Vital Signs Vital Sign Reading Time Taken Comments Blood Pressure 128/90 08/23/2024 11:08 AM EST Pulse 76 08/23/2024 11:08 AM EST Temperature 36.7 C (98 F) 08/23/2024 11:08 AM EST Respiratory Rate 16 08/23/2024 11:08 AM EST Oxygen Saturation 97% 08/23/2024 11:08 AM EST Inhaled Oxygen Concentration - - Weight 59 kg (130 lb) 01/14/2025 11:45 AM EDT Height 149.9 cm (4' 11 ) 01/14/2025 11:45 AM EDT Body Mass Index 26.26 01/14/2025 11:45 AM EDT Plan of Treatment Upcoming Encounters Date Type Department Care Team (Late st Contact Info) Description 08/12/2025 10:00 AM EST Office Visit [facility] [address] [place] [address] Unknown, Unknown, MD Cotton, Jen Reina, [facility] [address] [place] [address] Health Maintenance Due Date Last Done Comments CREATININE LEVEL 1957 LIPID PANEL 1957 DEPRESSION SCREENING 1969 SMOKING Hx and SMOKELESS TOBACCO SCREENING 1970 HEPATITIS C SCREENING 11/27/1975 SCREENING FOR DIABETES 1992 MAMMOGRAM 1997 COLOGUARD 2002 COLONOSCOPY 2002 COLORECTAL CANCER SCREENING 2002 FIT TEST 2002 FOBT 2002 SIGMOIDOSCOPY 2002 VIRTUAL COLONOSCOPY 2002 PNEUMOCOCCAL VACCINES (50+ years) (2 of 2 - PCV) 11/06/2018 11/06/2017 ZOSTER VACCINES (3 of 3) 09/12/2019 07/18/2019, 05/26 OSTEOPOROSIS SCREENING INITIAL (ONE-TIME) 2022 INFLUENZA VACCINE (#1) 2025 , 07/07/2022, 07/07/2021, Additional history exists COVID-19 VACCINE ( season) 2025 11/09/2023, 01/29/2023, 02/13/2022, Additional history exists Adult Td,Tdap Booster 05/14/2028 05/14/2018, 013 RSV VACCINE Completed 06/15/2023 HEPATITIS A VACCINES Aged Out No long er eligible based on patient's age to complete this topic HIB VACCINES Aged Out No longer eligi ble based on patient's age to complete this topic IPV VACCINES Aged Out No longer eligi ble based on patient's age to complete this topic MENINGOCOCCAL VACCINES (ACWY) Aged Out No longer eligible based on patient's age to complete this topic MENINGOCOCCAL VACCINES (B) Aged Out N o longer eligible based on patient's age to complete this topic Medical Devices Implanted Type Area Cardiovascular Surgeon Device Identifier Shelf Expiration Date Model / Serial / Lot Penta Stimulator Lead (T8) Implanted:04/07/20 13 (Quantity not on file) Lead Spine Thoracic [employer] Neurostimulator Implanted:06/18/20 17 (Quantity not on file) Stimulator Left: Back [employer] 3660 / [id number] / Description:MRI Conditional see operations developer guidelines for conditions Insurance MEDICARE PART A & B [place] MED[place] P[place] BLUE REPLACEMENT MEDICARE PART A & B Member Subscriber Plan / Payer (Ef fective 2012-Present) Name:Nadine Hamilton Member ID:[id number] Relation to Subscriber:Self Name:Nadine Hamilton Subscriber ID:[id number] Payer ID:[id number] Group ID:Not on file Type:Medicare Address: Admittor [address] [place] [address] [place] [address] MEDICARE PPO BLUE REPLACEMENT MEDICARE PART A & B Member Subscriber Plan / Payer (Ef fective 2012-Present) Name:Nadine Hamilton Member ID:[id number] Relation to Subscriber:Self Name:Nadine Hamilton Subscriber ID:[id number] Payer ID:[id number] Group ID:Not on file Type:Medicare Address: Admittor [address] [place] [phone] [place] [address] MEDICARE PPO BLUE REPLACEMENT MEDICARE PART A & B Member Subscriber Plan / Payer ( fective 2012-Present) Name:Nadine Hamilton Member ID:[id number] Relation to Subscriber:Self Name:Nadine Hamilton Subscriber ID:[id number] Payer ID:[id number] Group ID:Not on file Type:Medicare Address: Admittor [address] [place] [address] [facility] MEDICARE PPO BLUE REPLACEMENT MEDICARE PART A & B Member Subscriber Plan / Payer ( fective 2012-Present) Name:Nadine Hamilton Member ID:[id number] Relation to Subscriber:Self Name:Nadine Hamilton Subscriber ID:[id number] Payer ID:[id number] Group ID:Not on file Type:Medicare Address: Admittor [address] [place] [address] [facility] MEDICARE PPO BLUE REPLACEMENT MEDICARE PART A & B [place] BLUE REPLACEMENT Care Teams Vp Of Marketing Relationship Specialty Start Date End Date Veronica Morales MD [address] [place] [phone] [email or web address] PCP - General Otolaryngology 08/23/24 Roverto Ricci DO Historical LMR Provider 07/15/17 Rama Bryant, KINDER TEACHER [address] [place] [address] [email or web address] Historical LMR Provider 07/15/17 Jessica Lozada NP [address] [place] [address] Historical LMR Provider 07/15/17 Ben Rankin MD [address] [place] [address] [email or web address] Historical LMR Provider 07/15/17 Carol Smith, RDCS Historical LMR Provider 07/15/17 Kallie Saleem NP [address] [place] [address] Historical LMR Provider 07/15/17 Jack Calderón MD [address] [place] [address] 09/26/21 Additional Source Comments The information contained in this document represents components of the legal health record. It is not the complete legal health record.[facility]
--- OUTSIDE RECORDS SUMMARY | 2025-08-04 15:28 | XMS_ITS | Encounter Summary ---
Author Organization [facility] Address [address] [facility] [address] [place] [address] Phone Care Team Providers Care Industrial Spraypainter Name Role Phone Roverto Ricci DO Unavailable Rama Bryant SOILS ANALYST Unavailable Jessica Lozada SOILS ANALYST Unavailable [phone] Ben Rankin MD Unavailable [phone] Carol Smith RDCS Unavailable [email or web address] Kallie Saleem SOILS ANALYST Unavailable [phone] Jack Calderón MD Unavailable [phone] Veronica Morales MD Primary Care Provider [phone] Encounter Details Date Type Department Care Team (Latest Contact Info) Description 12/16/2024 Transcribe Orders Virtual Department [address] [place] [address] Veronica Morales MD [address] [facility], [address] [place] [address] [email or web address] Chronic sialoadenitis (Primary Dx) Social History Tobacco Use Types Packs/Day Years [...] Description 08/12/2025 10:00 AM EST Office Visit [facility] [address] [place] [phone] Unknown, Unknown, MD Cotton, Jen Reina NP [address] [place] [address] documented as of this encounter Visit Diagnoses Diagnosis Chronic sialoadenitis- Primary documented in this encounter Care Teams Industrial Spraypainter Relationship Specialty Start Date End Date Veronica Morales MD [address] [place] [phone] [email or web address] PCP - General Otolaryngology 08/23/24 Roverto Ricci DO [email or web address] Historical LMR Provider 07/15/17 Rama Bryant SOILS ANALYST [address] [place] [address] [email or web address] Historical LMR Provider 07/15/17 Jessica Lozada NP [address] [place] [address] Historical LMR Provider 07/15/17 Ben Rankin MD [address] [place] [address], [address] [place] [address] Historical LMR Provider 07/15/17 Carol Smith, RDCS Historical LMR Provider 07/15/17 Kallie Saleem NP [address] [place] [address] Historical LMR Provider 07/15/17 Jack Calderón MD [address] [place] [address] 09/26/21 documented as of this encounter Additional Source Comments The information contained in this document represents components of the legal health record. It is not the complete legal health record.[facility]
--- OUTSIDE RECORDS SUMMARY | 2025-08-04 15:28 | XMS_ITS | Patient Health Record ---
Author Organization [facility] Address [address] [place] [phone] Care Team Providers Care Mud Analysis Well Logging Captain Name Role Phone Stephane, Jack Primary Care Provider Unavailab Zaki Child Unavailable [phone] Allergies Allergen (clinical drug ingredient) Drug/Non Drug Allergy documented on EMR Reaction Allergy Type Onset Date Status oxycodone Oxycodone HCl Unknown Drug Allergy Act lamin morphine Morphine Sulfate Unknown Drug Allergy Active dye for xrays/ nicke l (uncoded) Unknown Allergy Active teraderm patch (uncoded) Unknown Allergy Active Non-steroidal anti-inflammatory agent (FN) nsaids (uncoded) Unknown Allergy Active Tegaderm Ag Mesh Unknown Drug Allergy Active Ranitidine HCl Unknown Drug Allergy Ac tive PredniSONE Unknown Drug Allergy Active Reason For Referral No Information Medications Medication SIG (Take, Route, Frequency, Duration) Notes Start Date End Date Status Symbicort 160-4.5 MCG/ACT INHALE 2 PUFFS PO BID Inhalation; Duration: 30 Active metFORMIN HCl 500 MG TK 1 T PO QD WAC Oral; Duration: 90 Active Cetirizine HCl 10 MG take 1 tablet by mouth once daily Oral; Duration: 30 Active Gabapentin 600 MG take 1 tablet by mouth once daily Oral; Duration: 30 Active Ezetimibe 10 MG TAKE 1 TABLET BY MOUTH DAILY Oral; Duration: 90 E785,Unavailab mark Active Atrovent HFA 17 MCG/ACT take 1 tablet by mouth once daily Inhalation; Duration: 25 Active Estring 7.5 MCG/24HR Vaginal; Duration: 90 Active Fluoxetine Active D 1000 1000 UNIT take 1 tablet by mouth once daily Oral; Duration: 30 Active Furosemide 20 MG take 1 tablet by mouth once daily Oral; Duration: 30 Not-Taking Vitamin C 500 MG as directed Orally Active Omeprazole 40 MG TK 1 C PO QD Oral; Duration: 90 Active Zafirlukast 20 MG take 1 tablet by mouth once daily Oral; Duration: 30 Active Ajovy 225 MG/1.5ML Subcutaneous; Duration: 28 Active SUMAtriptan Succinate 100 MG Oral; Duration: 21 Active Immunizations Vaccine Route Administration Date Status Comme nts Influenza Unknown 04/24/2020 Administered Problems Problem Type SNOMED Code ICD Code Onset Dates Problem Status W/U Status Risk Notes Problem Screening colonoscopy (977184647) Encounter for screening colonoscopy (Z12.11) Active confirmed Problem Constipation (63569063) Constipation (K59.00) Active confirmed Problem Abdominal bloating (862207179) Abdominal bloating (R14.0) Active confirmed Problem Family History of Cancer of Colon (Situation) (633485683) Family history of colon cancer (Z80.0) Active confirmed Problem Gastroesophageal reflux disease (158739426) GERD (gastroesophage al reflux disease) (K21.9) Active confirmed Plan Of Treatment Future Test Test Name Order Date COLONOSCOPY 01/06/2015 UPPER GI ENDOSCOPY 08/12/2020 COLONOSCOPY 08/12/2020 Insurance Providers Payer Name Payer Address Payer Phone Subscriber Number Group Number Insured Name Patient Relationship to Insured Coverage Start Date Coverage End Date [facility] [address] Attn Claims Elieser , [facility] [id number] STILLMIRI Self - patient is the insured Medical (General) History Medical History History ICD Code Denies [place] nor renal disease Asthma Allergies Fluid retention Depression Describes a neg. colonoscopy with Dr. Shanks in approx 2008 or 2009--just diverticulosis Reports a silent stroke seen on a CT sca n, but no symptoms Pulmonary sarcoidosis--previously on pre dnisone NIDDM Negative colonoscopy in 05/2015 GERD--EGD in 11/2020 small to moderate-sized HH, no Andino's, no esophagitis, no H.pylori Negative screening colonoscopy in 11/2020 Surgical History Surgery Date(Month/Year) Left hip replacement-09/2014-Dr. Quinones Right hip [id number]. Ayers Back surgery-disc disease Foot surgery Neck surgery-disc disease Neurostimulator in back for [id number] Eleonora ORTA
--- OUTSIDE RECORDS SUMMARY | 2025-08-04 15:28 | XMS_ITS | Data Portability ---
Author Organization [place] - [facility], Allergy Address [address] [facility] [address] [place] [id number] Care Team Providers Care Toe Former Name Role Phone PAULETET DIAZ Primary Care Provider Assessment No assessment recorded. Plan of Treatment Reminders Order Date Submit Date Provider Last Modified By Organization Details Last Modified Time Details Appointments None recorded. Lab None recorded. Referral None recorded. Procedures None recorded. Surgeries ultrasoun d guided core biopsy (SURG) 2023 024 [facility], [address] [place] [address], [address], 4 10:59:07 Imaging MRI, neck, w/ contrast - attn right level 1B 2024 025 [facility], [address] [place], [address], 5 10:49:59 Medication Orders None recorded. Patient TargetsNo targets recorded. Patient InstructionsNo instructions recorded. Reason for Referral None Reported. Results Created Date Observation Date Name Description Value Unit Range Abnormal Flag Note LastModifiedBy Organization Detail LastModifiedTime 05/14/2012/06/2022 imagi ng/di agnos tic resul t No observ ation record ed. [email or web address] Not Available 02:09:24 05/14/20 24 12/08/2022 imagi ng/di agnos tic resul t No observ ation record ed. [email or web address] Not Available 02:09:36 05/14/20 24 12/20/2022 imagi ng/di agnos tic resul t No observ ation record ed. [email or web address] Not Available 02:09:39 05/14/20 24 12/20/2022 imagi ng/di agnos tic resul t No observ ation record ed. [email or web address] Not Available 02:09:41 05/14/20 24 12/25/2018 imagi ng/di agnos tic resul t No observ ation record ed. [email or web address] Not Available 02:09:43 05/14/20 24 01/19/2023 imagi ng/di agnos tic resul t No observ ation record ed. [email or web address] Not Available 02:09:50 05/14/20 24 01/22/2019 imagi ng/di agnos tic resul t No observ ation record ed. [email or web address] Not Available 02:10:08 05/23/20 24 03/25/2024 US, head + neck, soft tissu e No observ ation record ed. [email or web address] Not Available 2023 09:18:14 06/30/20 24 03/25/2024 US, head + neck, soft tissu e No observ ation record ed. [email or web address] Not Available 06/30 16:42:06 06/30/20 24 06/26/2024 imagi ng/di agnos tic resul t No observ ation record ed. [email or web address] Not Available 2023 16:58:26 Result Notes None recorded. Problems Name Problem SNOMED Code Status Onset Date Resolution Date Notes Provider Name and Address Organization Details Recorded Time [place] ce of oral epitheliu m 06943157246 9107 Active 2014 Erythropl rissa of mouth or tongue; Note: Date Diagnosed : 09/01/2015 12:12 PM (K13.29) Not Available [facility] 03:22:32 Localized enlarged lymph nodes 419376290 Active 2022 Localized enlarged lymph nodes; Note: Date Diagnosed : 11/21/2022 9:39 AM (R59.0) Not Available [facility] 08/02/202 4 03:22:32 Sarcoidos is 76993123 Active 2022 Sarcoidos is, unspecifi ed; Note: Date Diagnosed : 11/27/2022 12:26 PM (D86.9) Not Available [facility] 4 03:22:31 Chronic sialadeni tis 533588805 Active 2024 TIFFANIE WOODALL MD [address] [address], [place], [address] , [facility] 5 13:12:07 Problem Notes None recorded. Medical Equipment None Reported. Allergies Allergen ID Allergen Name Allergen Category Reaction Reaction Severity Criticality Documentation Date Start Date Code Code System Note Provider Name and Address Organization Details Recorded Time 211901 Non-stero idal anti-infl ammatory agent (substanc e) medicatio n other Not available Not available 02/05/2024 71269 5008 SNOMED React ion: unkno wn, unspe cifie d;; Not Available [facility] 4 01:09:11 521987 morphine medicatio n other Not available Not available 02/05/2024 7052 RxNorm React ion: unkno wn, unspe cifie d;; Not Available [facility] 4 01:09:11 341758 fentanyl medicatio n other Not available Not available 02/05/2024 4337 RxNorm React ion: unkno wn, unspe cifie d;; Not Available [facility] 4 01:09:12 316378 nickel environme nt,medica tion other Not available Not available 02/05/2024 30521 29 RxNorm React ion: Unkno wn; Not Available [facility] 4 01:09:13 638663 ranitidin e hydrochlo ride medicatio n other Not available Not available 02/05/2024 03506 6 RxNorm React ion: unkno wn, unspe cifie d;; Not Available [facility] 4 01:09:14 566474 oxycodone hydrochlo ride medicatio n other Not available Not available 02/05/2024 38436 RxNorm React ion: unkno wn, unspe cifie d;; Not Available [facility] 01:09:15 Medications Name Sig Start Date Stop Date Status Note LastModified by Organization Details LastModified Time fluoxetin e 40 mg capsule TAKE 1 CAPSULE BY MOUTH DAILY active Not Available Not Available No t Available metformin 500 mg tablet TAKE 1 TABLET BY MOUTH DAILY active Not Available Not Available No t Available Estring 2 mg (7.5 mcg/24 hour) vaginal ring active Not Available Not Available Not Available gabapenti n 600 mg tablet TAKE 1 TABLET BY MOUTH THREE TIMES DAILY 12/09 completed Not Available Not Available Not Available polyethyl juan luis glycol 3350 17 gram oral powder packet MIX AND DRINK 1 PACKET WITH 8 OZ OF LIQUID DAILY FOR 14 DAYS 12/09 completed Not Available Not Available Not Available cetirizin e 10 mg tablet TAKE 1 TABLET BY MOUTH ONCE A DAY NEEDED active Not Available Not Available No t Available tizanidin e 4 mg tablet 11/21 completed Medicati on ID: [id number] D uration Value: 30 Brand Name: tizanidi ne Send Method: E-Prescr ibed Sub s Allowed: subs OK Speci al Instruct ion: take 1 tablet by mouth twice a day if needed for 30 DAYS Med icationG enericNa me: tizanidi ne Not Available Not Available Not Available sumatript an 100 mg tablet 12/09 completed Not Available Not Available Not Available methylpre dnisolone 32 mg tablet 1 tablet [address] and 1 tablet 2 hours before 2024 active Not Available Not Available Not Avai lable rizatript an 10 mg tablet TAKE 1 TABLET BY MOUTH DAILY NEEDED FOR MIGRAINE HEADACHE . MAY REPEAT DOSE IN 2 HOURS NEEDED. DO NOT EXCEED 2 DOSES IN 24 HOURS active Not Available Not Available No t Available omeprazol e 40 mg capsule,d elayed release TAKE 1 CAPSULE BY MOUTH DAILY active Not Available Not Available No t Available tramadol 50 mg tablet 05/22 completed Medicati on ID: [id number] D uration Value: 30 Brand Name: tramadol Send Method: E-Prescr ibed Sub s Allowed: subs OK Speci al Instruct ion: take 1 tablet by mouth at bedtime if needed for 30 DAYS Med icationG enericNa me: tramadol Not Available Not Available Not Available amoxicill in 500 mg tablet TAKE 2 TABLETS BY MOUTH ONCE NEEDED FOR DENTAL PROCEDUR E 05/22 completed Not Available Not Available Not Available fluoxetin e 20 mg tablet 12/09 completed Medicati on ID: [id number] D uration Value: 30 Brand Name: fluoxeti ne Send Method: E-Prescr ibed Sub s Allowed: subs OK Speci al Instruct ion: TAKE 2 TABLETS BY MOUTH ONCE DAILY Me dication GenericN susie: fluoxeti ne Not Available Not Available Not Available triamcino lone acetonide 0.1 % topical ointment APPLY TOPICALL Y TWICE DAILY active Not Available Not Available No t Available bupropion HCl 75 mg tablet TAKE 1 TABLET BY MOUTH TWICE DAILY 12/09 completed Not Available Not Available Not Available zafirluka st 20 mg tablet 11/21 completed Medicati on ID: [id number] D uration Value: 30 Brand Name: janay ast Send Method: E-Prescr ibed Sub s Allowed: subs OK Speci al Instruct ion: take 1 tablet by mouth twice a day Medi cationGe nericNam e: zafirluk ast Not Available Not Available Not Available gabapenti n 300 mg capsule TAKE 1 CAPSULE BY MOUTH THREE TIMES DAILY active Not Available Not Available No t Available omeprazol e 20 mg capsule,d elayed release TAKE 1 CAPSULE BY MOUTH EVERY DAY 12/09 completed Not Available Not Available Not Available ondansetr on 4 mg disintegr ating tablet DISSOLVE 1 TABLET ON THE TONGUE EVERY 8 HOURS NEEDED FOR NAUSEA OR VOMITING 12/09 completed Not Available Not Available Not Available fluoxetin e 20 mg capsule TAKE 2 CAPSULES BY MOUTH DAILY 12/09 completed Not Available Not Available Not Available fluticaso ne propionat e 50 mcg/actua tion nasal spray,marty pension SHAKE LIQUID AND USE 2 SPRAYS IN EACH NOSTRIL DAILY active Not Available Not Available No t Available naratript an 2.5 mg tablet PLEASE SEE ATTACHED FOR DETAILED DIRECTIO NS active Not Available Not Available No t Available ezetimibe 10 mg tablet TAKE 1 TABLET BY MOUTH DAILY active Not Available Not Available No t Available bupropion HCl XL 150 mg 24 hr tablet, extended release TAKE 1 TABLET BY MOUTH EVERY MORNING active Not Available Not Available No t Available Atrovent HFA 17 mcg/actua tion aerosol inhaler INHALE 2 PUFFS FOUR TIMES DAILY NEEDED FOR WHEEZING AND SHORTNES S OF BREATH. DO NOT EXCEED 12 PUFFS PER DAY active Not Available Not Available No t Available Zyrtec 10 mg capsule Take 1 tablet [address] 2024 active Not Available Not Available Not Avai lable Ajovy Syringe 225 mg/1.5 mL subcutane ous 12/09 completed Not Available Not Available Not Available Emgality Pen 120 mg/mL subcutane ous pen injector active Not Available Not Available Not Available Ubrelvy 50 mg tablet TAKE 1 TABLET BY MOUTH EVERY DAY NEEDED FOR MIGRAINE HEADACHE . MAY REPEAT DOSE IN 2 HOURS. MAX 2 TABLETS IN 24 HOURS active Not Available Not Available No t Available Ajovy 225 mg/1.5 mL subcutane ous auto-inje ctor 12/09 completed Not Available Not Available Not Available Qulipta 60 mg tablet TAKE 1 TABLET BY MOUTH DAILY 12/09 completed Not Available Not Available Not Available Ozempic 0.25 mg or 0.5 mg (2 mg/3 mL) subcutane ous pen injector 05/22 completed Not Available Not Available Not Available Breyna 160 mcg-4.5 mcg/actua tion HFA aerosol inhaler INHALE 2 PUFFS BY MOUTH TWICE DAILY J 45.9 active Not Available Not Available No t Available Vitals Date Recorded Body height Body mass index (BMI) Body weight Provider Name and Address Organization Details Last Updated DateTime 12/09/2024 152.4 cm 25.4 kg/m2 96552.01 g Kaylie Leiva MA [facility] 12/09/2024 13:03:34 Date Recorded Body height Body mass index (BMI) Body weight Provider Name and Address Organization Details Last Updated DateTime 05/22/2024 152.4 cm 29.3 kg/m2 08344.86 g Kaylie Leiva [place] - [facility] 05/22/2024 10:14:45 Social History None recorded. Functional Status None recorded. Mental Status None recorded. Family History Nothing Reported. Medical History No medical history recorded. Gynecological HistoryNo gynecological history recorded. Obstetrics History GPAL:G 0 P 0 0 0 0 Past Encounters Encounter ID Performer Location Encounter Start Date Encounter Closed Date Diagnosis/Indication Diagnosis SNOMED-CT Code Diagnosis ICD10 Code Diagnosis IMO Codes Diagnosis Note [id number] TIFFANIE WOODALL MD [facility] on [address] [place] [phone] 05/22/2024 10:05:11 05/22/2024 15:01:18 Localized enlarged lymph nodes [id number] R59.0 68-year-ol d female presents today for follow-up. Since her last visit, she did see Dr. Bai. No treatment was recommende d. She had an updated CT neck in August 2023 which was unremarkab le without any lymphadeno adwoa. In March, she had an ultrasound at [place] showing no significan t change in right level 1B lymph node, but there is a hypoechoic complex cystic area in the right submandibu lar gland. This lymph node versus granuloma measures 0.9 x 0.6 x 1.1 cm. A similar finding without cystic component was seen on ultrasound of September 15, 2022. There is firm nodule noted right level 1B. While this is likely related to her sarcoidosi s, given clinical change, I have recommende d updated biopsy. As previous in office biopsy was nondiagnos tic, will order ultrasound -guided biopsy. Sarcoidosis 22563000 D86 .9 [id number] TIFFANIE WOODALL MD [facility] on [address] [place] [phone] 12/09/2024 12:56:01 12/09/2024 13:15:53 Sarcoidosis 53149788 D86.9 Chronic sialadenitis 235 927907 K11.23 We discussed that her most recent CT scan was normal in the region of the right SMG, but the ultrasound showed cystic swelling within the submandibu lar gland as well as a prominent node overlying which she had biopsy done which was unremarkab le. Her main symptom at this time is pain. Her exam is similar to previous. We can assess the salivary gland a little more detail with MRI. We discussed that surgery to remove the gland would be fairly invasive and would not be a guarantee she would not have pain in this area.I did recommend using gabapentin regularly for about a week and see if this helps with the pain. Health Concerns Section Related Observation LastModified by Organization Detai ls LastModified Time None Recorded Concern Status LastModified by Organization Details LastModified Time None Recorded Advance Directives Directive None Recorded Payers Insurance Date Sequence Insurance Name Policy Number Policy Preston Covered Member ID Preston Member ID Guarantor Name 12/09/2024 1 [facility] - DOS ON OR AFTER 2022 - ONE CARE (MEDICARE REPLACEMENT/AD VANTAGE - HMO) Nadine Hamilton [id number] Nadine Hamilton 12/09/2024 1 [place] PPO) [id number] Nadine Hamilton [id number] Nadine Still 12/09/2024 2 [place] [employer] Nadine Hamilton [id number] Nadine Hamilton Notes Date Note Type Note Provider Name and Address Organization Details Recorded Time 05/22/2024 text/html ROS as noted in the HPI 68-year-old female presents today for follow-up. Since her last visit, she did see Dr. Bai. No treatment was recommended. She had an updated CT neck in August 2023 which was unremarkable without any lymphadenopathy. In March, she had an ultrasound at [place] showing no significant change in right level 1B lymph node, but there is a hypoechoic complex cystic area in the right submandibular gland. This lymph node versus granuloma measures 0.9 x 0.6 x 1.1 cm. A similar finding without cystic component was seen on ultrasound of September 15, 2022. PV: 67-year-old female presents today for follow-up after biopsy of her right neck. She had ultrasound-guided biopsy at [facility] after my in office biopsywas not diagnostic. This showed non-caseating granulomas consistent with sarcoidosis. 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 We discussed a course of prednisone for the neck but she has side effects with theprednisone and does not feel that the pain is severe enough at this point. I recommended that she follow with Dr. Bai for further recommendations. Allquestions answered.Unfortunat low, I do not have her CT report or images from [place] to review today but have requested them. TIFFANIE WOODALL MD [address] [facility] [address], [phone], [place] - [facility] 05/28/2024 10:35:22 12/09/2024 text/html ROS as noted in the HPI 69-year-old female presents today for follow-up.She had a CT neck in August 2023 which was unremarkable without any lymphadenopathy. In March, she had an ultrasound at [place] showing no significant change in right level 1B lymph node, but there is a hypoechoic complex cystic area in the right submandibular gland. This lymph node versus granuloma measures 0.9 x 0.6 x 1.1 cm. A similar finding without cystic component was seen on ultrasound of September 15, 2022.She has been having more pain. Last FNA unremarkable. PV: 67-year-old female presents today for follow-up after biopsy of her right neck. She had ultrasound-guided biopsy at [facility] after my in office biopsywas not diagnostic. This showed non-caseating granulomas consistent with sarcoidosis. 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 We discussed a course of prednisone for the neck but she has side effects with theprednisone and does not feel that the pain is severe enough at this point. I recommended that she follow with Dr. Bai for further recommendations. Allquestions answered.Unfortunat low, I do not have her CT report or images from [place] to review today but have requested them. TIFFANIE WOODALL MD [address] [facility], [place], [phone], [place] - [facility] 12/10/2024 14:53:56 OBGyn Episode No OBEpisode recorded.
== END 2025-08-04 14:45 | disposition left against medical advice (07) ==
PROVIDERS: Registered Nurse Emergency; Emergency Provider Emergency Medicine; PCP Family Medicine
DX: R05.9 Cough, unspecified (principal); R07.9 Chest pain, unspecified; Z53.29 Procedure and treatment not carried out because of patient's decision for other reasons; Z03.818 Encounter for observation for suspected exposure to other biological agents ruled out; R94.31 Abnormal electrocardiogram [ECG] [EKG]; E11.9 Type 2 diabetes mellitus without complications; K21.9 Gastro-esophageal reflux disease without esophagitis; I10 Essential (primary) hypertension; J45.909 Unspecified asthma, uncomplicated
CPT/HCPCS: 71046; 80053; 84484; 85025; 85610; 87637; 93005; 99283

== ENCOUNTER → 2025-08-04 10:47 | Outpatient (BNV) | payer MEDICARE, SELFPAY | PROVIDERS: Emergency Provider Emergency Medicine; PCP Family Medicine; Visit Provider Internal Medicine Cardiovascular Disease | DX: R94.31 Abnormal electrocardiogram [ECG] [EKG] (principal); R07.9 Chest pain, unspecified | CPT/HCPCS: 93010 ==

== ENCOUNTER → 2025-08-04 10:58 | Outpatient (BNV) | payer MEDICARE, SELFPAY | PROVIDERS: PCP Family Medicine; Visit Provider Radiology Diagnostic Radiology | DX: R05.9 Cough, unspecified (principal); R07.9 Chest pain, unspecified | CPT/HCPCS: 71046 ==